=== PATIENT | female | born 1995 | race Hispanic/Latino ===

== ENCOUNTER → 2017-02-05 | Outpatient (CLI) | payer OTHER ==
[~2017-02-05] MED LIST: ACETAMINOPHEN; ALBU17AE3 INH; BCP; Benadryl; CETI10TA17 PO; CYCL5TAB PO; DCCL10CRX PO; EPIN0.3A3; EPIN0.3A3 SQ; FAMO-119 PO; FAMO20TA5; FLONASE; HYDR-700; HYDR-700 PO; METH4TAB PO; MNTL10T PO; MONT10TA21 PO; MONT10TA24; NAPR250T34 PO; NORE1TAB23; NORE1TAB23 PO; PRD20T PO; RT-ALBUINH; SINGULAIR; [UNRECOGNIZED DRUG - OTHER]; [UNRECOGNIZED DRUG - OTHER]
--- NOTE | 2017-02-05 11:27 | Diagnostic Imaging Report ---
PROCEDURE: MRI left joint lower extremity without contrast. TECHNIQUE: Multiplanar, multisequence non contrast-enhanced MRI of the left lower extremity was accomplished. INDICATION: Left knee pain. FINDINGS: There is a small suprapatellar effusion. There is a tiny Lynch's cyst extending about measuring 1.2 x 0.5 x 1 cm in size. The bone marrow demonstrate no significant signal abnormality. The extensor mechanism is intact. The ACL and PCL are both intact. The posterior horn of the medial meniscus demonstrate the increased signal within its substance near its junction with the body of the meniscus without definite extension to the meniscus surface to suggest a tear. The lateral meniscus appears intact. The MCL and lateral collateral ligament complex appear intact. There is a generally preserved articular cartilage seen with no significant thinning or focal defect. The muscles signal and bulk around the knee is within normal limits. IMPRESSION: 1. There is a minimal joint effusion and the tiny Lynch's cyst. 2. Increased signal within the substance of the posterior horn of the medial meniscus could relate to old injury or myxoid degeneration. The abnormal signal does not interrupt the articular surface of the meniscus to suggest a tear. Dictated by: Dictated on workstation # [id number]
== END ==
LOC: RAD 09:24
PROVIDERS: ATTEND Nurse Practitioner
DX: S83.232A Complex tear of medial meniscus, current injury, left knee, initial encounter (principal); X58.XXXA Exposure to other specified factors, initial encounter; Y99.8 Other external cause status
CPT/HCPCS: 73721

== ENCOUNTER 2017-12-13 17:36 | Emergency (ER) | payer SELFPAY ==
[~2017-12-13] VITALS: Ht 162.6 cm; Wt 83.9 kg
--- OUTSIDE RECORDS SUMMARY | 2017-12-13 17:41 | XMS REPORT ---
Author Author LUL JULIAN Organization [facility] Address [address] [place] [address] Care Team Providers Care Shoe Lay Out Planner Name Role Phone LUL JULIAN Unavailable PROBLEMS Type Condition ICD9-CM Code [id number] Code Onset Dates Condition Status SNOMED Code Problem Mild intermittent asthma without complication J45.20 Active 158735891 Problem Exercise-induced asthma J45.990 Active 39808789 Problem Allergic reaction, urticaria L50.0 Active 62768063 Problem Moderate single current episode of major depressive disorder F32.1 Active 75962279 Problem Obesity (BMI 30.0-34.9) E66.9 Active 144293627552035 Problem Encounter for prescription of oral contraceptives Z30.011 Active 686956901 Problem Routine health maintenance Z00.00 Active 605863658 Problem High risk sexual behavior Z72.51 Active 123987110 Problem Encounter for gynecological examination Z01.419 Active 238168015 ALLERGIES Substance Reaction Event Type Date Status Levsin lethargic Drug Allergy Jul, Active pollen, enviromental allergies sinus congestion Non Drug Allergy Jul, Active SOCIAL HISTORY Never Assessed PLAN OF CARE Activity Details Follow Up 3 Months, prn Reason: VITAL SIGNS Height 63 in 2016-07-31 Weight 182 lbs 2016-07-31 Temperature 98.3 degrees Fahrenheit 2016-07-31 Heart Rate 80 bpm 2016-07-31 Respiratory Rate 20 2016-07-31 BMI 32.24 kg/m2 2016-07-31 Blood pressure systolic 124 mmHg 2016-07-31 Blood pressure diastolic 80 mmHg 2016-07-31 MEDICATIONS Medication Instructions Dosage Frequency Start Date End Date Duration Status Loestrin 07/18 (21) 1-20 MG-MCG Orally Once a day 1 tablet 24h 28 days Active EPINEPHrine 0.3 MG/0.3ML Injection one time Inject into thigh if needed for facial edema or SHORTNESS of BREATH- then go to ER Jan, Active Azithromycin 250 MG Orally Once a day 2 tablets on the first day, then 1 tablet daily for 4 days 24h Jul, Jul, 5 day(s) Active Singulair 10 mg Orally Once a day 1 tablet in the evening 24h 90 days Active Pepcid 20 mg Orally 2 times a day 1 tablet 12h Active Duloxetine HCl 60 mg Orally Once a day 1 capsule 24h Jul, 30 day(s) Active Zyrtec Allergy 10 mg Orally 2 times a day 2 tablets in the am and two tablets in the evening 12h Mar, 90 days Active HydrOXYzine HCl 25 MG Orally every 8 hrs 1 tablet as needed 8h Jan, Active Benadryl 25 MG Active ProAir HFA 90 mcg/actuation Inhalation every 4 hrs 2-4 Inhalations by Inhalation route every 4 hours PRN 4h Apr, 365 days Active RESULTS No Results PROCEDURES No Known procedures IMMUNIZATIONS No Known Immunizations MEDICAL (GENERAL) HISTORY Type Description Date Medical History depression Surgical History left knee scope Surgical History tonsils and adenoid Surgical History tube ears Surgical History wisdom teeth removal
--- OUTSIDE RECORDS SUMMARY | 2017-12-13 17:42 | XMS REPORT ---
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 Active 62737392 Problem Encounter for prescription of oral contraceptives Z30.011 Active 884468351 Problem Exercise-induced asthma J45.990 Active 88868762 Problem Allergic reaction, urticaria L50.0 Active 09880344 Problem Encounter for gynecological examination Z01.419 Active 137854191 Problem High risk sexual behavior Z72.51 Active 582526603 ALLERGIES Substance Reaction Event Type Date Status pollen, enviromental allergies sinus congestion Non Drug Allergy Apr, Active SOCIAL HISTORY No smoking Hx information available PLAN OF CARE VITAL SIGNS Height 63 in 2016-05-20 Weight 182.6 lbs 2016-05-20 Heart Rate 72 bpm 2016-05-20 Respiratory Rate 18 2016-05-20 BMI 32.34 kg/m2 2016-05-20 Blood pressure systolic 124 mmHg 2016-05-20 Blood pressure diastolic 76 mmHg 2016-05-20 MEDICATIONS Medication Instructions Dosage Frequency Start Date End Date Duration Status Singulair 10 mg Orally Once a day 1 tablet in the evening 24h Jan, Active Loestrin 1/20 (21) 1-20 MG-MCG Orally Once a day 1 tablet 24h 28 days Active ProAir HFA 90 mcg/actuation Inhalation every 4 hrs 2-4 Inhalations by Inhalation route every 4 hours PRN 4h 15 Apr, 2013 Active Benadryl 25 MG Active HydrOXYzine HCl 25 MG Orally every 8 hrs 1 tablet as needed 8h Jan, Active Pepcid 20 mg Orally 2 times a day 1 tablet 12h Active Prednisone Active Zyrtec Allergy 10 mg Orally 2 times a day 1 tablet 12h Active EPINEPHrine 0.3 MG/0.3ML Injection one time Inject into thigh if needed for facial edema or SHORTNESS of BREATH- then go to ER Jan, Active RESULTS No Results PROCEDURES Procedure Date Ordered Related Diagnosis Body Site Office Visit, Est Pt., Level 3 May 20, 2016 IMMUNIZATIONS No Known Immunizations
--- OUTSIDE RECORDS SUMMARY | 2017-12-13 17:42 | XMS REPORT ---
Author Author LUL JULIAN e[employer] Address Unknown Phone Unavailable Care Team Providers Care Occupational Health Physiotherapist Name Role Phone LUL JULIAN CP Unavailable Allergies, Adverse Reactions, Alerts Substance Reaction Event Type pollen, enviromental allergies sinus congestion Non Drug Allergy Problems Problem Type Condition Code Onset Dates Condition Status Assessment Family history of diabetes mellitus (DM) Z83.3 Active Assessment History of endometriosis Z87.42 Active Problem Allergic reaction, urticaria L50.0 Active Problem Routine health maintenance Z00.00 Active Problem Exercise-induced asthma J45.990 Active Assessment Exercise-induced asthma J45.990 Active Assessment Routine health maintenance Z00.00 Active Problem Mild intermittent asthma without complication J45.20 Active Assessment Allergic reaction, urticaria L50.0 Active Medications Medication Code System Code Instructions Start Date End Date Status Dosage ProAir HFA [facility] [address]-67 90 mcg/actuation Inhalation every 4 hrs Apr 2-4 Inhalations by Inhalation route every 4 hours PRN Ibuprofen [facility] [address]-43 200 MG Orally every 6 hrs 1 tablet as needed Cetirizine HCl [facility] [address]-48 10 mg Orally Once a day Jan 29, 2016 1 tablet Benadryl Allergy [facility] [address]-03 25 MG Orally every 6 hrs 1 tablet as needed Singulair [facility] [address]-67 10 mg Orally Once a day Jan 29, 2016 1 tablet in the evening HydrOXYzine HCl [facility] [address]-64 25 MG Orally every 8 hrs Jan 29, 2016 1 tablet as needed EPINEPHrine [facility] [address]-44 0.3 MG/0.3ML Injection one time Jan 29, 2016 Inject into thigh if needed for facial edema or SHORTNESS of BREATH- then go to ER Procedures Procedure Coding System Code Date Office Visit, Est Pt., Level 3 CPT-4 51869 Jan 29, 2016 Vital Signs Date/Time: Jan 29, 2016 Cardiac Monitoring Heart Rate 86 bpm Weight 172.2 lbs Height 63 in Wt Percentile 92.36 % BMI 30.50 Index Blood Pressure Diastolic 70 mmHg Blood Pressure Systolic 118 mmHg BMIPercentile 93.85 % Results No Known Results Summary Purpose eClinicalWorks Submission
--- OUTSIDE RECORDS SUMMARY | 2017-12-13 17:42 | XMS REPORT ---
Author Author LUL JULIAN Organization [facility] Address [address] [place] [address] Care Team Providers Care Flight Test Mechanic Name Role Phone JULIANLUL Andino Unavailable PROBLEMS Type Condition ICD9-CM Code [id number] Code Onset Dates Condition Status SNOMED Code Problem Intractable migraine without aura and with status migrainosus G43.011 Active 470094318 Problem Moderate single current episode of major depressive disorder F32.1 Active 69061720 Problem Mild intermittent asthma without complication J45.20 Active 283337667 Problem Obesity (BMI 30.0-34.9) E66.9 Active 365366142426065 Problem Allergic reaction, urticaria L50.0 Active 85482833 ALLERGIES No Information ENCOUNTERS Encounter Location Date Diagnosis [facility] [id number] [place] [address] 79212- 0172 Sep, Mild intermittent asthma without complication J45.20 ; Allergic reaction, urticaria L50.0 ; Obesity (BMI 30.0-34.9) E66.9 ; Moderate single current episode of major depressive disorder F32.1 ; Intractable migraine without aura and with status migrainosus G43.011 and Oral contraceptive pill surveillance Z30.41 [facility] [id number] [place] [address]17 -0293 Aug, Toe pain, left M79.675 ; Left anterior knee pain M25.562 and Closed nondisplaced fracture of distal phalanx of left great toe, initial encounter S92.425A [facility] [id number] [place] [address] 96416- 3758 Aug, Rash and nonspecific skin eruption R21 [facility] [id number] [place] [address] 85178- 3868 Jun, Complex tear of medial meniscus of left knee as current injury, initial encounter S83.232A [facility] [id number] [place] [address] 51474- 7208 May, Moderate single current episode of major depressive disorder F32.1 ; Oral contraceptive pill surveillance Z30.41 and Obesity (BMI 30.0-34.9) E66.9 [facility] [id number] [place] [address] 90111- 0195 May, Encounter for prescription of oral contraceptives Z30.011 [place] [id number] [place] [address] 32558- 1621 May, [facility] [address] [address]2380 Apr, Intractable migraine without aura and with status migrainosus G43.011 [place] [id number] [place] [address] 04058- 3305 Apr, [place] [id number] [place] [address] 13125- 6768 Mar, [place] [id number] [place] [address] 16629- 9345 Mar, Encounter for well woman exam with routine gynecological exam Z01.419 ; Moderate single current episode of major depressive disorder F32.1 ; Screening breast examination Z12.31 ; Screen for STD (sexually transmitted disease) Z11.3 ; Vaginal candidiasis B37.3 and Dietary counseling Z71.3 [place] [id number] [place] [address] 95724- 3203 Feb, [place] [id number] [place] [address] 12405- 5685 Jan, [place] [address] 95119- 4496 Jan, [place] [id number] [place] [address] 30674- 4355 Jan, Complex tear of medial meniscus of left knee as current injury, initial encounter S83.232A [facility] [id number] [place] [address] 69173- 2271 Nov, Acute pain of left knee M25.562 [facility] [id number] [place] [address] 94519 -7845 Sep, Sprain of left ankle, unspecified ligament, initial encounter S93.402A [facility] [address] 31684- 9740 Aug, [facility] [address] 92225- 0244 Aug, [place] [address] 43523- 0292 Jul, Moderate single current episode of major depressive disorder F32.1 and Acute non-recurrent maxillary sinusitis J01.00 [place] [address] 66278- 3055 Jun, Mild intermittent asthma without complication J45.20 ; Allergic reaction, urticaria L50.0 ; Acute non-recurrent frontal sinusitis J01.10 and Obesity (BMI 30.0-34.9) E66.9 [place] [address] 87387- 7140 Apr, Allergic reaction, urticaria L50.0 [facility] [address] 17467- 3001 Apr, [place] [address] 74715- 0008 Mar, Angioedema, subsequent encounter T78.3XXD [place] [address] 64134- 3473 05 Mar, 2016 [place] [address] 96568- 6718 16 Feb, 2016 Spongiotic dermatitis L30.8 [place] [address] [place] [address]- 1638 Jan, Recurrent urticaria L50.8 [place] [id number] [place] [address] 76956- 9090 Jan, [place] [id number] [place] [address] 89573- 1535 Jan, Allergic reaction, urticaria L50.0 ; Routine health maintenance Z00.00 ; Encounter for prescription of oral contraceptives Z30.011 ; Encounter for gynecological examination Z01.419 and High risk sexual behavior Z72.51 [place] [id number] [place] [address] 92945- 6217 03 Jan, 2016 Allergic reaction, urticaria L50.0 ; Routine health maintenance Z00.00 ; Family history of diabetes mellitus (DM) Z83.3 and History of endometriosis Z87.42 [place] [id number] [place] [address] 52297- 0172 Jan, Allergic reaction, urticaria L50.0 ; Exercise-induced asthma J45.990 ; Routine health maintenance Z00.00 ; Family history of diabetes mellitus (DM) Z83.3 and History of endometriosis Z87.42 [place] [id number] [place] [address] 27730- 8173 Nov, Drug screening, pre-employment Z02.1 and Pre-employment drug screening Z02.1 [place] [id number] [place] [address] 19611- 8662 Nov, Pre-employment drug screening Z02.1 [place] [id number] [place] [address] 65782- 0323 Nov, [address] 70390- 8699 October, Pre-employment examination Z02.1 and Visit for TB skin test Z11.1 [place] [id number] [place] [address] 41607- 5315 Jul, Sore throat J02.9 [facility] [id number] [place] [address] 64568- 9156 Feb, Counseling for control, oral contraceptives V25.01 [facility] [address] 63511- 2018 Jan, Encounter for long-term (current) use of other medications V58.69 and 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 [facility] [address] 16018- 7484 Jan, Mastodynia 611.71 [place] [address] 23825- 1409 Jan, [facility] [address] 82355- 6912 Dec, Frequent headaches 784.0 [place] [address] 01881- 1812 Dec, Frequent headaches 784.0 and Family history of diabetes mellitus V18.0 [facility] [id number] [place] [address] 01341- 5393 Sep, [facility] [id number] [place] [address] 45643- 3490 Sep, [facility] [id number] [place] [address] 78701- 6285 Jul, [facility] [id number] [place] [address] 52561- 0374 Jul, [facility] [id number] [place] [address] 95526- 9181 Jun, [facility] [address] 73053- 4774 Jun, [facility] [id number] [place] [address] 68841- 5596 Jun, [facility] [address] [place] [address]- 9529 Jun, [facility] [place] [facility] [address] [id number] [place] [address]- 2049 Apr, [facility] [place] [facility] [address] [id number] [place] [address]- 5295 Apr, [facility] [place] [facility] [address] [id number] [place] [address]- 0639 Mar, [facility] [place] [facility] [address] [id number] [place] [address]- 8653 14 Mar, 2014 [facility] [place] [facility] [address] [id number] [place] [address]- 2217 Mar, [facility] [place] [facility] [address] [id number] [place] [address]- 3928 Mar, [facility] [place] [facility] [address] [id number] [place] [address]- 3665 Feb, [facility] [place] [facility] [address] [id number] [place] [address]- 0931 Feb, [facility] [place] [facility] [address] [id number] [place] [address]- 8306 Dec, [facility] [place] [facility] [address] [id number] [place] [address]- 4478 Dec, [facility] [place] [facility] [address] [id number] [place] [address]- 1242 Dec, [facility] [place] [facility] [address] [id number] [place] [address]- 4631 Dec, [facility] [place] [facility] [address] [id number] [place] [address]- 4440 Dec, [facility] [place] [facility] [address] [id number] [place] [address]- 6531 Dec, [facility] [place] [facility] [address] [id number] [place] [address]- 6244 Dec, [facility] [place] [facility] [address] [id number] [place] [address]- 5870 Dec, [facility] [place] [facility] [address] [id number] [place] [address]- 9898 Dec, [facility] [place] [facility] [address] [id number] [place] [address]- 1638 Dec, [facility] [place] [facility] [address] [id number] [place] [address]- 0256 Dec, [facility] [place] [facility] [address] [id number] [place] [address]- 8499 Dec, [facility] [place] [facility] [address] [id number] [place] [address]- 6101 Nov, [facility] [place] [facility] [address] [id number] [place] [address]- 3422 Nov, [facility] [place] [facility] [address] [id number] [place] [address]- 4848 Nov, [facility] [place] [facility] [address] [id number] [place] [address]- 3366 Nov, [facility] [place] [facility] [address] [id number] [place] [address]- 1560 October, [facility] [place] [facility] [address] [id number] [place] [address]- 4057 October, [facility] [place] [facility] [address] [id number] [place] [address]- 3219 October, [facility] [place] [facility] [address] [id number] [place] [address]- 2017 October, [facility] [place] [facility] [address] [id number] [place] [address]- 4859 October, [facility] [place] [facility] [address] [id number] [place] [address]- 8582 October, [facility] [place] [facility] [address] [id number] [place] [address]- 8325 Sep, [facility] [place] [facility] [address] [id number] [place] [address]- 9423 Sep, [facility] [place] [facility] [address] [id number] [place] [address]- 1537 Sep, [facility] [place] [facility] [address] [facility] [id number] [place] [address]- 8056 Sep, [facility] [place] [facility] [address] [id number] [place] [address]- 5181 Sep, [facility] [place] [facility] [address] [id number] [place] [address]- 1161 Sep, [facility] [place] [facility] [address] [facility] [id number] [place] [address]- 7507 Sep, [facility] [place] [facility] [address] [facility] [id number] [place] [address]- 8927 Sep, [facility] [place] [facility] [address] [id number] [place] [address]- 1314 Aug, [facility] [place] [facility] [address] [id number] [place] [address]- 7999 Aug, [facility] [place] [facility] [address] [facility] [id number] [place] [address]- 2395 Aug, [facility] [place] [facility] [address] [id number] [place] [address]- 8739 Aug, [facility] [place] [facility] [address] [id number] [place] [address]- 0605 Jul, [facility] [place] [facility] [address] [id number] [place] [address]- 5588 Jul, [facility] [place] [facility] [address] [id number] [place] [address]- 0081 Jul, [facility] [place] [facility] [address] [id number] [place] [address]- 3970 Jul, [facility] [place] [facility] [address] [id number] [place] [address]- 2403 Jul, [facility] [place] [facility] [address] [id number] [place] [address]- 1856 Jul, [facility] [place] [facility] [address] [id number] [place] [address]- 9540 Jun, [facility] [place] [facility] [address] [id number] [place] [address]- 5527 Jun, [facility] [place] [facility] [address] [id number] [place] [address]- 9722 Jun, [facility] [place] [facility] [address] [id number] [place] [address]- 3960 Jun, [facility] [place] [facility] [address] [id number] [place] [address]- 1876 May, [facility] [place] [facility] [address] [id number] [place] [address]- 7829 May, [facility] [place] [facility] [address] [id number] [place] [address]- 8524 May, [facility] [place] [facility] [address] [id number] [place] [address]- 5412 May, [facility] [place] [facility] [address] [id number] [place] [address]- 3552 Apr, [facility] [place] [facility] [address] [id number] [place] [address]- 4836 Apr, [facility] [place] [facility] [address] [id number] [place] [address]- 7874 Apr, [facility] [place] [facility] [address] [id number] [place] [address] 2546 Apr, [facility] [place] [facility] [address] [id number] [place] [address]- 8194 Apr, [facility] [place] [facility] [address] [id number] [place] [address]- 2179 Apr, [facility] [place] [facility] [address] [id number] [place] [address]- 2576 Feb, [facility] [place] [facility] [address] [id number] [place] [address]- 6535 Feb, [facility] [place] [facility] [address] [id number] [place] [address]- 7463 Jan, [facility] [place] [facility] [address] [id number] [place] [address]- 8241 Jan, [facility] [place] [facility] [address] [id number] [place] [address]- 3057 Jan, [facility] [place] [facility] [address] [id number] [place] [address]- 8686 Jan, [facility] [place] [facility] [address] [id number] [place] [address]- 8084 Jan, [facility] [place] [facility] [address] [id number] [place] [address]- 4205 Jan, [facility] [place] [facility] [address] [id number] [place] [address]- 6239 Jan, [facility] [place] [facility] [address] [id number] [place] [address]- 5253 October, [facility] [place] [facility] [address] [id number], [place] [address]- 7179 Aug, [facility] [place] [facility] [address] [id number], [place] [address]- 1970 Jun, [facility] [place] [facility] [address] [id number] [place] [address]- 1394 Apr, [facility] [place] [facility] [address] [id number] [place] [address]- 2784 Apr, [facility] [place] [facility] [address] [id number] [place] [address]- 3437 Mar, [facility] [place] [facility] [address] [id number] [place] [address]- 0311 Mar, [facility] [place] [facility] [address] [id number] [place] [address]- 1363 Nov, [facility] [place] [facility] [address] [id number] [place] [address]- 8835 Aug, [facility] [place] [facility] [address] [id number] [place] [address]- 8584 Jun, [facility] [place] [facility] [address] [id number] [place] [address]- 9362 30 Apr, 2011 [facility] [place] [facility] [address] [id number] [place] [address]- 4096 28 Apr, 2011 [facility] [place] [facility] [address] [id number] [place] [address]- 0370 Mar, [facility] [place] [facility] [address] [id number] [place] [address]- 1195 Nov, [facility] [place] [facility] [address] [id number] [place] [address]- 2463 14 Jul, 2010 [facility] [place] [facility] [address] [id number] [place] [address]- 0849 14 May, 2010 [facility] [place] [facility] [address] [facility] [id number] [place] [address]- 6442 14 May, 2010 [facility] [place] [facility] [address] [id number] [place] [address]- 0799 30 Apr, 2010 [facility] [place] [facility] [address] [id number] [place] [address]- 9909 Mar, [facility] [place] [facility] [address] [id number] [place] [address]- 8654 Mar, [facility] [place] [facility] [address] [id number] [place] [address]- 3530 2010 [facility] [place] [facility] [address] [id number] [place] [address]- 6004 2010 [facility] [id number] [address]- 2783 15 Feb, 2010 [facility] [address] [address]- 8332 Dec, [facility] [address] [address]- 4817 17 Nov, 2009 [facility] [address] [address]- 1714 May, [facility] [address] [address]- 3109 May, [facility] [address] [address]- 7380 Apr, [facility] [address] [address]- 9853 Apr, [facility] [address] [address]- 7162 Apr, [facility] [id number] [address]- 8002 Nov, IMMUNIZATIONS No Known Immunizations SOCIAL HISTORY Never Assessed REASON FOR VISIT needs appt PLAN OF CARE VITAL SIGNS MEDICATIONS Unknown Medications RESULTS No Results PROCEDURES No Known procedures INSTRUCTIONS MEDICATIONS ADMINISTERED No Known Medications MEDICAL (GENERAL) HISTORY Type Description Date Medical History depression Medical History migraine Surgical History left knee scope x 2 Surgical History tonsils and adenoid Surgical History tube ears Surgical History wisdom teeth removal
--- OUTSIDE RECORDS SUMMARY | 2017-12-13 17:42 | XMS REPORT ---
Author INES Kohli [facility] eClinicalWorks Address Unknown Phone Unavailable Care Team Providers Care Manager Talent Name Role Phone INES NUNES CP Unavailable Allergies, Adverse Reactions, Alerts Substance Reaction Event Type N.K.D.A. 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 Active Assessment Encounter for long-term (current) use of other medications V58.69 Active Problem Pain in joint, lower leg 719.46 Active Problem Pain in joint, ankle and foot 719.47 Active Problem Bipolar I disorder, most recent episode (or current) depressed, unspecified 296.50 Active Problem Acute pharyngitis 462 Active Problem Anorexia 783.0 Active Problem Insomnia, unspecified 780.52 Active Problem Abnormal involuntary movements 781.0 Active Problem Asthma, unspecified, unspecified status 493.90 Active Problem Other general medical examination for administrative purposes V70.3 Active Problem Unspecified conjunctivitis 372.30 Active Problem Encounter for long-term (current) use of other medications V58.69 Active Problem 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 Active Problem Acute upper respiratory infections of unspecified site 465.9 Active Problem Dizziness and giddiness 780.4 Active Problem Contusion of chest wall 922.1 Active Problem Other malaise and fatigue 780.79 Active Problem Adjustment disorder with depressed mood 309.0 Active Problem Need for prophylactic vaccination and inoculation, Influenza V04.81 Active Problem MENINGOCOCCAL DX V03.89 Active Problem Blepharitis, unspecified 373.00 Active Problem Major depressive disorder, single episode, unspecified 296.20 Active Problem Pain in joint, forearm 719.43 Active Problem Acute sinusitis, unspecified 461.9 Active Problem Lumbago 724.2 Active Problem Headache 784.0 Active Medications Medication Code System Code Instructions Start Date End Date Status Dosage Loestrin 07/18 (21) [facility] [address]-36 1-20 MG-MCG Orally Once a day 1 tablet Cymbalta [facility] [address]-15 60 mg Jul 18, 2014 take 1 capsule (60 mg) by oral route once daily ProAir HFA [facility] [address]-86 90 mcg/actuation May 13, 2013 2-4 Inhalations by Inhalation route every 4 hours PRN Procedures Procedure Coding System Code Date Office Visit, New Pt., Level 4 CPT-4 67704 Feb 22, 2015 Vital Signs Date/Time: Feb 22, 2015 Temperature 98.9 F Weight 143.8 lbs Height 63 in BMI 25.47 Index Blood Pressure Diastolic 68 mmHg Blood Pressure Systolic 110 mmHg Cardiac Monitoring Heart Rate 78 bpm BMIPercentile 82.57 % Wt Percentile 76.49 % Results No Known Results Summary Purpose eClinicalWorks Submission
--- OUTSIDE RECORDS SUMMARY | 2017-12-13 17:43 | XMS REPORT ---
Author Author IESHA LUL Organization [facility] Address [address] [place] [address] Care Team Providers Care Motorized Squad Lieutenant Name Role Phone JULIANLUL Andino Unavailable PROBLEMS Type Condition ICD9-CM Code TYA43-LB Code Onset Dates Condition Status SNOMED Code Problem Intractable migraine without aura and with status migrainosus G43.011 Active 558740537 Problem Moderate single current episode of major depressive disorder F32.1 Active 83968431 Problem Mild intermittent asthma without complication J45.20 Active 662892379 Problem Obesity (BMI 30.0-34.9) E66.9 Active 959007370423876 Problem Allergic reaction, urticaria L50.0 Active 12020651 ALLERGIES Substance Reaction Event Type Date Status Levsin lethargic Drug Allergy Mar, Active pollen, enviromental allergies sinus congestion Non Drug Allergy Mar, Active ENCOUNTERS Encounter Location Date Diagnosis [place] [address] [address] October, [facility] [address] [address] Sep, Mild intermittent asthma without complication J45.20 ; Allergic reaction, urticaria L50.0 ; Obesity (BMI 30.0-34.9) E66.9 ; Moderate single current episode of major depressive disorder F32.1 ; Intractable migraine without aura and with status migrainosus G43.011 and Oral contraceptive pill surveillance Z30.41 [facility] [address] [place] [id number] [place] [address] Aug, Toe pain, left M79.675 ; Left anterior knee pain M25.562 and Closed nondisplaced fracture of distal phalanx of left great toe, initial encounter S92.425A [place] [address] [place] [address] Aug, Rash and nonspecific skin eruption R21 [place] [address] [address] Jun, Complex tear of medial meniscus of left knee as current injury, initial encounter S83.232A [place] [address] [address] May, Moderate single current episode of major depressive disorder F32.1 ; Oral contraceptive pill surveillance Z30.41 and Obesity (BMI 30.0-34.9) E66.9 [place] [address] [address] May, Encounter for prescription of oral contraceptives Z30.011 [place] [address] [address] May, [facility] [address] [address] Apr, Intractable migraine without aura and with status migrainosus G43.011 [place] [address] [address] Apr, [place] [address] [address] Mar, [place] [address] [place] [id number] [place] [address] Mar, Encounter for well woman exam with routine gynecological exam Z01.419 ; Moderate single current episode of major depressive disorder F32.1 ; Screening breast examination Z12.31 ; Screen for STD (sexually transmitted disease) Z11.3 ; Vaginal candidiasis B37.3 and Dietary counseling Z71.3 [place] [address] [address] 06 Feb, 2017 [facility] [address] [address] Jan, [place] [address] [place] [address] Jan, [place] [address] [address] Jan, Complex tear of medial meniscus of left knee as current injury, initial encounter S83.232A [facility] [address] [place] [id number] [place] [address]- 6679 Nov, Acute pain of left knee M25.562 [facility] [address] [place] [id number] [place] [address] Sep, Sprain of left ankle, unspecified ligament, initial encounter S93.402A [place] [address] [address] Aug, [facility] [address] [address] Aug, [place] [address] [address] Jul, Moderate single current episode of major depressive disorder F32.1 and Acute non-recurrent maxillary sinusitis J01.00 [place] [address] [address] Jun, Mild intermittent asthma without complication J45.20 ; Allergic reaction, urticaria L50.0 ; Acute non-recurrent frontal sinusitis J01.10 and Obesity (BMI 30.0-34.9) E66.9 [place] [address] [place] [id number] [place] [address] Apr, Allergic reaction, urticaria L50.0 [place] [address] [address] Apr, [place] [address] [address] Mar, Angioedema, subsequent encounter T78.3XXD [place] [address] [address]- [address] Mar, [place] [id number] [place] [address]- [address] Feb, Spongiotic dermatitis L30.8 [place] [address] [place] [id number] [place] [address]- 2851 Jan, Recurrent urticaria L50.8 [place] [address] [place] [id number] [place] [address]- [address] Jan, [place] [address] [place] [id number] [place] [address]- 39[address] Jan, Allergic reaction, urticaria L50.0 ; Routine health maintenance Z00.00 ; Encounter for prescription of oral contraceptives Z30.011 ; Encounter for gynecological examination Z01.419 and High risk sexual behavior Z72.51 [place] [address] [place] [id number] [place] [address]- 0[address] Jan, Allergic reaction, urticaria L50.0 ; Routine health maintenance Z00.00 ; Family history of diabetes mellitus (DM) Z83.3 and History of endometriosis Z87.42 [place] [address] [place] [id number] [place] [address] 9[address]43- 0[address] Jan, Allergic reaction, urticaria L50.0 ; Exercise-induced asthma J45.990 ; Routine health maintenance Z00.00 ; Family history of diabetes mellitus (DM) Z83.3 and History of endometriosis Z87.42 [place] [address] [place] [id number] [place] [address]- [address] Nov, Drug screening, pre-employment Z02.1 and Pre-employment drug screening Z02.1 [place] [address] [place] [id number] [place] [address] Nov, Pre-employment drug screening Z02.1 [place] [address] [place] [id number] [place] [address]- 387[address] Nov, [place] [address] [place] [id number] [place] [address]- [address] October, Pre-employment examination Z02.1 and Visit for TB skin test Z11.1 [place] [address] [place] [id number] [place] [address]- 4320 Jul, Sore throat J02.9 [place] [address] [place] [id number] [place] [address]- 69[address] Feb, Counseling for control, oral contraceptives V25.01 [place] [address] [address]- [address] Jan, Encounter for long-term (current) use of other medications V58.69 and 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 [place] [address] [address]- [address] Jan, Mastodynia 611.71 [place] [address] [address]- [address] Jan, [place] [address] [address]- 1683 Dec, Frequent headaches 784.0 [place] [address] [address]- 9707 Dec, Frequent headaches 784.0 and Family history of diabetes mellitus V18.0 [place] [address] [place] [id number] [place] [address]- 2664 Sep, [place] [address] [address]- [address] Sep, [place] [address] [address]- [address] Jul, [place] [address] [address]- [address] Jul, [place] [address] [address]- [address] Jun, [place] [address] [place] [address] Jun, [facility] [place] [facility] [address] [id number] [place] [address]- 9682 Jun, [facility] [place] [facility] [address] [id number] [place] [address]- 9407 Jun, [facility] [place] [facility] [address] [id number] [place] [address]- 5889 Apr, [facility] [place] [facility] [address] [id number] [place] [address]- 0798 Apr, [facility] [place] [facility] [address] [id number] [place] [address]- 1649 Mar, [facility] [place] [facility] [address] [id number] [place] [address]- 8581 Mar, [facility] [place] [facility] [address] [id number] [place] [address]- 8602 Mar, [facility] [place] [facility] [address] [id number] [place] [address]- 1357 Mar, [facility] [place] [facility] [address] [id number] [place] [address]- 1470 Feb, [facility] [place] [facility] [address] [id number] [place] [address]- 0590 Feb, [facility] [place] [facility] [address] [id number] [place] [address]- 0354 Dec, [facility] [place] [facility] [address] [id number] [place] [address]- 0309 Dec, 2013 [facility] [place] [facility] [address] [id number] [place] [address]- 6595 Dec, [facility] [place] [facility] [address] [id number] [place] [address]- 3943 Dec, 2013 [facility] [place] [facility] [address] [id number] [place] [address]- 5019 05 Dec, 2013 [facility] [place] [facility] [address] [id number] [place] [address]- 0651 Dec, 2013 [facility] [place] [facility] [address] [id number] [place] [address]- 4418 Dec, [facility] [place] [facility] [address] [id number] [place] [address]- 3039 Dec, [facility] [place] [facility] [address] [id number] [place] [address]- 2886 Dec, [facility] [place] [facility] [address] [id number] [place] [address]- 1700 Dec, [facility] [place] [facility] [address] [id number] [place] [address]- 5130 Dec, [facility] [place] [facility] [address] [id number] [place] [address]- 7823 Dec, [facility] [place] [facility] [address] [id number] [place] [address]- 6683 Nov, [facility] [place] [facility] [address] [id number] [place] [address]- 7075 Nov, [facility] [place] [facility] [address] [id number] [place] [address]- 7796 Nov, [facility] [place] [facility] [address] [id number] [place] [address]- 7861 Nov, [facility] [place] [facility] [address] [id number] [place] [address]- 2972 October, [facility] [place] [facility] [address] [id number] [place] [address]- 4321 October, [facility] [place] [facility] [address] [id number] [place] [address]- 7454 October, [facility] [place] [facility] [address] [id number] [place] [address]- 9697 October, [facility] [place] [facility] [address] [id number] [place] [address]- 5776 October, [facility] [place] [facility] [address] [id number] [place] [address]- 8914 October, [facility] [place] [facility] [address] [id number] [place] [address]- 7047 Sep, [facility] [place] [facility] [address] [id number] [place] [address]- 4506 Sep, [facility] [place] [facility] [address] [id number] [place] [address]- 9935 Sep, [facility] [place] [facility] [address] [id number] [place] [address]- 5306 Sep, [facility] [place] [facility] [address] [id number] [place] [address]- 8058 Sep, [facility] [place] [facility] [address] [id number] [place] [address]- 8394 Sep, [facility] [place] [facility] [address] [id number] [place] [address]- 9391 Sep, [facility] [place] [facility] [address] [id number] [place] [address]- 4034 Sep, [facility] [place] [facility] [address] [id number] [place] [address]- 8057 Aug, [facility] [place] [facility] [address] [id number] [place] [address]- 3727 Aug, [facility] [place] [facility] [address] [id number] [place] [address]- 3783 Aug, [facility] [place] [facility] [address] [id number] [place] [address]- 4736 Aug, [facility] [place] [facility] [address] [id number] [place] [address]- 7572 Jul, [facility] [place] [facility] [address] [id number] [place] [address]- 3085 Jul, [facility] [place] [facility] [address] [id number] [place] [address]- 1790 Jul, [facility] [place] [facility] [address] [id number] [place] [address]- 4796 Jul, [facility] [place] [facility] [address] [id number] [place] [address] 2546 Jul, [facility] [place] [facility] [address] [id number] [place] [address] 2546 Jul, [facility] [place] [facility] [address] [id number] [place] [address] 2549 Jun, [facility] [place] [facility] [address] [id number] [place] [address]- 2275 Jun, [facility] [place] [facility] [address] [id number] [place] [address]- 2061 Jun, [facility] [place] [facility] [address] [id number] [place] [address]- 1712 Jun, [facility] [place] [facility] [address] [id number] [place] [address]- 2409 May, [facility] [place] [facility] [address] [id number] [place] [address]- 4696 May, [facility] [place] [facility] [address] [id number] [place] [address]- 9388 May, [facility] [place] [facility] [address] [id number] [place] [address]- 2545 May, [facility] [place] [facility] [address] [id number] [place] [address] 2540 Apr, [facility] [place] [facility] [address] [id number] [place] [address] 2546 18 Apr, 2013 [facility] [place] [facility] [address] [id number] [place] [address]- 2546 15 Apr, 2013 [facility] [place] [facility] [address] [id number] [place] [address]- 2549 Apr, [facility] [place] [facility] [address] [id number] [place] [address]- 1212 Apr, [facility] [place] [facility] [address] [id number] [place] [address]- 5049 Apr, [facility] [place] [facility] [address] [id number] [place] [address]- 5695 Feb, [facility] [place] [facility] [address] [id number] [place] [address]- 1988 Feb, [facility] [place] [facility] [address] [id number] [place] [address]- 4424 Jan, [facility] [place] [facility] [address] [id number] [place] [address]- 7750 Jan, [facility] [place] [facility] [address] [id number] [place] [address]- 1579 Jan, [facility] [place] [facility] [address] [id number] [place] [address]- 5152 Jan, [facility] [place] [facility] [address] [id number] [place] [address]- 1232 Jan, [facility] [place] [facility] [address] [id number] [place] [address]- 8801 Jan, [facility] [place] [facility] [address] [id number] [place] [address]- 2015 Jan, [facility] [place] [facility] [address] [id number] [address]- 3111 October, [facility] [place] [facility] [address] [id number] [place] [address]- 7789 Aug, [facility] [place] [facility] [address] [id number] [place] [address]- 2626 Jun, [facility] [place] [facility] [address] [id number] [place] [address]- 9587 Apr, [facility] [place] [facility] [address] [id number] [place] [address]- 7190 07 Apr, 2012 [facility] [address] [id number] [place] [address]- 3398 Mar, [facility] [place] [facility] [address] [id number] [place] [address]- 9536 Mar, [facility] [address] [id number] [place] [address]- 7140 Nov, [facility] [place] [facility] [address] [id number] [place] [address]- 0803 Aug, [facility] [place] [facility] [address] [id number] [place] [address]- 7515 Jun, [facility] [place] [facility] [address] [id number] [place] [address]- 8355 Apr, [facility] [place] [facility] [address] [id number] [place] [address]- 2936 Apr, [facility] [place] [facility] [address] [id number] [place] [address]- 2545 Mar, [facility] [place] [facility] [address] [id number] [place] [address]- 5563 Nov, [facility] [address] [facility] [id number] [place] [address]- 2951 14 Jul, 2010 [facility] [place] [facility] [address] [id number] [place] [address]- 7126 14 May, 2010 [facility] [place] [facility] [address] [id number] [place] [address]- 7788 14 May, 2010 [facility] [place] [facility] [address] [id number] [place] [address] 30 Apr, 2010 [facility] [place] [facility] [address] [id number] [place] [address]- 5482 Mar, [facility] [place] [facility] [address] [id number] [place] [address]- 2547 Mar, [facility] [address] [place] [id number] [address]- [address]99 Mar, [facility] [address] [facility] [id number], [place] [address]- [address]46 2010 [facility] [address] [facility] [id number], [place] [address]- 1137 15 Feb, 2010 [facility] [address] [facility] [id number], [place] [address]- 7265 Dec, [facility] [address] [facility] [id number], [place] [address]- 9954 Nov, [facility] [address] [address]- 8350 May, [facility] [address] [address]- 3305 May, [facility] [address], [place] [address]- 0915 Apr, [facility] [address] [address]- 8469 Apr, [facility] [address] [place] [id number], [place] [address]- 1506 Apr, [facility] [address] [id number], [place] [address]- 3928 Nov, IMMUNIZATIONS No Known Immunizations SOCIAL HISTORY Never Assessed REASON FOR VISIT Well Woman Exam/ having some lump on left breast -- jonas pack PLAN OF CARE Activity Details Follow Up 4 Weeks Reason:f/u depression VITAL SIGNS Height 63 in 2017-04-07 Weight 196.0 lbs 2017-04-07 Temperature 98.1 degrees Fahrenheit 2017-04-07 BMI 34.72 kg/m2 2017-04-07 Blood pressure systolic 136 mmHg 2017-04-07 Blood pressure diastolic 76 mmHg 2017-04-07 MEDICATIONS Medication Instructions Dosage Frequency Start Date End Date Duration Status Loestrin 07/18 () 1-20 MG-MCG Orally Once a day 1 tablet 24h 28 days Active Diflucan 150 MG Orally one time 1 tablet Mar, 1 dose Active Citalopram Hydrobromide 20 mg Orally Once a day 1 tablet 24h Mar, 30 day(s) Active Singulair 10 mg Orally Once a day 1 tablet in the evening 24h 90 days Active Acetaminophen 500 MG Orally every 6 hrs 2 capsules as needed 6h Active Pepcid 20 mg Orally 2 times a day 1 tablet 12h Active HydrOXYzine HCl 25 MG Orally every 8 hrs 1 tablet as needed 8h Jan, 30 days Active RESULTS Name Result Date Reference Range TRICHOMONAS (IN HOUSE) 2017-04-07 TRICHOMONAS Negative Control + Lot # [id number] Exp date 16/05/30 PDF Report 2017-04-07 PDF Report1 LCLS BACTERIAL VAGINOSIS (IN HOUSE) 2017-04-07 RESULTS Negative Control + Lot # [id number] Exp date PAP TEST, HPV IF ASCUS 2017-04-07 DIAGNOSIS: Specimen adequacy: Clinician provided ICD10: Performed by: . . Pathologist provided ICD10: Note: . CULTURE, GENITAL 2017-04-07 Genital Culture, Routine Final report Result 1 Yeast isolated. Result 2 GC/CHLAM PROBE (STATE) 2017-04-07 CHLAMYDIA GC PROCEDURES Procedure Date Ordered Result Body Site SPECIMEN HANDLING Apr 07, 2017 No Charge Apr 07, 2017 Bacterial Vaginosis In House Apr 07, 2017 TRICHOMONAS ASSAY W/OPTIC Apr 07, 2017 CULTURE, BACTERIA, OTHER Apr 07, 2017 INSTRUCTIONS MEDICATIONS ADMINISTERED No Known Medications MEDICAL (GENERAL) HISTORY Type Description Date Medical History depression Medical History migraine Surgical History left knee scope x 2 Surgical History tonsils and adenoid Surgical History tube ears Surgical History wisdom teeth removal
--- OUTSIDE RECORDS SUMMARY | 2017-12-13 17:43 | XMS REPORT ---
Author Author LUL JULIAN [facility] [employer] Address Unknown Phone Unavailable Care Team Providers Care Mercerizing Range Feeder Name Role Phone LUL JULIAN CP Unavailable Allergies, Adverse Reactions, Alerts Substance Reaction Event Type pollen, enviromental allergies sinus congestion Non Drug Allergy Problems Problem Type Condition Code Onset Dates Condition Status Assessment Encounter for prescription of oral contraceptives Z30.011 Active Assessment Allergic reaction, urticaria L50.0 Active Assessment Routine health maintenance Z00.00 Active Assessment High risk sexual behavior Z72.51 Active Assessment Encounter for gynecological examination Z01.419 Active Problem Encounter for gynecological examination Z01.419 Active Problem High risk sexual behavior Z72.51 Active Problem Encounter for prescription of oral contraceptives Z30.011 Active Problem Routine health maintenance Z00.00 Active Problem Mild intermittent asthma without complication J45.20 Active Problem Exercise-induced asthma J45.990 Active Problem Allergic reaction, urticaria L50.0 Active Medications Medication Code System Code Instructions Start Date End Date Status Dosage Ibuprofen [facility] [address]-36 200 MG Orally every 6 hrs 1 tablet as needed HydrOXYzine HCl [facility] [address]-15 25 MG Orally every 8 hrs Jan 29, 2016 1 tablet as needed Singulair [facility] [address]-85 10 mg Orally Once a day Jan 29, 2016 1 tablet in the evening Benadryl Allergy [facility] [address]-92 25 MG Orally every 6 hrs 1 tablet as needed EPINEPHrine [facility] [address]-12 0.3 MG/0.3ML Injection one time Jan 29, 2016 Inject into thigh if needed for facial edema or SHORTNESS of BREATH- then go to ER ProAir HFA [facility] [address]-14 90 mcg/actuation Inhalation every 4 hrs Apr 2-4 Inhalations by Inhalation route every 4 hours PRN Cetirizine HCl [facility] [address]-83 10 mg Orally Once a day Jan 29, 2016 1 tablet Famotidine [facility] [address]-37 20 mg Orally Once a day Feb 07, 2016 1 tablet at bedtime Loestrin 07/18 (21) [facility] [address]-51 1-20 MG-MCG Orally Once a day 1 tablet Procedures Procedure Coding System Code Date CULTURE, BACTERIA, OTHER CPT-4 13764 Feb 07, 2016 TRICHOMONAS ASSAY W/OPTIC CPT-4 94429 Feb 07, 2016 No Charge CPT-4 85002 Feb 07, 2016 Office Visit, Est Pt., Level 3 CPT-4 98286 Feb 07, 2016 VEGA VAG, DNA, DIR PROBE CPT-4 29836 Feb 07, 2016 BIOPSY OF SKIN LESION CPT-4 74552 Feb 07, 2016 Vital Signs Date/Time: Feb 07, 2016 Cardiac Monitoring Heart Rate 72 bpm Weight 172.0 lbs Height 63 in Wt Percentile 92.3 % BMI 30.47 Index Blood Pressure Diastolic 70 mmHg Blood Pressure Systolic 116 mmHg BMIPercentile 93.81 % Results No Known Results Summary Purpose eClinicalWorks Submission
--- OUTSIDE RECORDS SUMMARY | 2017-12-13 17:43 | XMS REPORT ---
Author Author LUL JULIAN [facility] e[employer] Address Unknown Phone Unavailable Care Team Providers Care Hander In Name Role Phone LUL JULIAN CP Unavailable Allergies, Adverse Reactions, Alerts Substance Reaction Event Type pollen, enviromental allergies sinus congestion Non Drug Allergy Problems Problem Type Condition Code Onset Dates Condition Status Assessment Angioedema, subsequent encounter T78.3XXD Active Problem Encounter for gynecological examination Z01.419 Active Problem High risk sexual behavior Z72.51 Active Problem Encounter for prescription of oral contraceptives Z30.011 Active Problem Routine health maintenance Z00.00 Active Problem Mild intermittent asthma without complication J45.20 Active Problem Exercise-induced asthma J45.990 Active Problem Allergic reaction, urticaria L50.0 Active Medications Medication Code System Code Instructions Start Date End Date Status Dosage Prednisone NDC 0 not defined EPINEPHrine [facility] [address]-04 0.3 MG/0.3ML Injection one time Jan 29, 2016 Inject into thigh if needed for facial edema or SHORTNESS of BREATH- then go to ER Singulair [facility] [address]-46 10 mg Orally Once a day Jan 29, 2016 1 tablet in the evening Pepcid [facility] [address]-45 20 mg Orally 2 times a day 1 tablet HydrOXYzine HCl [facility] [address]-04 25 MG Orally every 8 hrs Jan 29, 2016 1 tablet as needed Loestrin 1/20 (21) [facility] [address]-13 1-20 MG-MCG Orally Once a day 1 tablet ProAir HFA [facility] [address]-81 90 mcg/actuation Inhalation every 4 hrs Apr 2-4 Inhalations by Inhalation route every 4 hours PRN Zyrtec Allergy [facility] [address]-26 10 mg Orally 2 times a day 1 tablet Procedures Procedure Coding System Code Date Office Visit, Est Pt., Level 3 CPT-4 16779 Apr 17, 2016 Vital Signs Date/Time: Apr 17, 2016 Cardiac Monitoring Heart Rate 72 bpm Weight 176.6 lbs Height 63 in BMI 31.28 Index Blood Pressure Diastolic 72 mmHg Blood Pressure Systolic 124 mmHg Results No Known Results Summary Purpose eClinicalWorks Submission
--- OUTSIDE RECORDS SUMMARY | 2017-12-13 17:43 | XMS REPORT ---
Author Author LUL JULIAN Organization [facility] Address [address] [place] [address] Care Team Providers Care Digital Pre Press Operator Name Role Phone IESHA LUL Unavailable PROBLEMS Type Condition ICD9-CM Code LEN10-FV Code Onset Dates Condition Status SNOMED Code Problem Intractable migraine without aura and with status migrainosus G43.011 Active 073858471 Problem Moderate single current episode of major depressive disorder F32.1 Active 18987659 Problem Mild intermittent asthma without complication J45.20 Active 343605073 Problem Obesity (BMI 30.0-34.9) E66.9 Active 593029796824990 Problem Allergic reaction, urticaria L50.0 Active 15974904 ALLERGIES Substance Reaction Event Type Date Status Levsin lethargic Drug Allergy May, Active pollen, enviromental allergies sinus congestion Non Drug Allergy May, Active ENCOUNTERS Encounter Location Date Diagnosis [facility] [id number] [place] [address] 08864- 6774 Dec, [facility] [id number] [place] [address] 33621- 8961 October, [facility] [id number] [place] [address] 16028- 3488 Sep, Mild intermittent asthma without complication J45.20 ; Allergic reaction, urticaria L50.0 ; Obesity (BMI 30.0-34.9) E66.9 ; Moderate single current episode of major depressive disorder F32.1 ; Intractable migraine without aura and with status migrainosus G43.011 and Oral contraceptive pill surveillance Z30.41 [facility] [address] [place] [address] 09982 -1888 Aug, Toe pain, left M79.675 ; Left anterior knee pain M25.562 and Closed nondisplaced fracture of distal phalanx of left great toe, initial encounter S92.425A [facility] [facility] [id number] [place] [address] 83800- 9785 Aug, Rash and nonspecific skin eruption R21 [facility] [facility] [id number] [place] [address] 80607- 7101 Jun, Complex tear of medial meniscus of left knee as current injury, initial encounter S83.232A [facility] [address] 87468- 0488 May, Moderate single current episode of major depressive disorder F32.1 ; Oral contraceptive pill surveillance Z30.41 and Obesity (BMI 30.0-34.9) E66.9 [facility] [facility] [id number] [place] [address] 68835- 9504 May, Encounter for prescription of oral contraceptives Z30.011 [place] [address] 93445- 7237 May, [facility] [address] 85833 -0250 Apr, Intractable migraine without aura and with status migrainosus G43.011 [facility] [facility] [id number] [place] [address] 70729- 0846 03 Apr, 2017 [place] [id number] [place] [address] 25254- 3867 Mar, [facility] [address] 84657- 4808 Mar, Encounter for well woman exam with routine gynecological exam Z01.419 ; Moderate single current episode of major depressive disorder F32.1 ; Screening breast examination Z12.31 ; Screen for STD (sexually transmitted disease) Z11.3 ; Vaginal candidiasis B37.3 and Dietary counseling Z71.3 [facility] [facility] [id number] [place] [address] 45796- 1392 Feb, [facility] [address] [place] [address]- 1060 Jan, [facility] [id number] [place] [address] 51811- 4941 Jan, [facility] [id number] [place] [address] 53135- 0102 Jan, Complex tear of medial meniscus of left knee as current injury, initial encounter S83.232A [facility] [facility] [id number] [place] [address] 15013- 6150 Nov, Acute pain of left knee M25.562 [facility] [id number] [place] [address] 95181 -0752 Sep, Sprain of left ankle, unspecified ligament, initial encounter S93.402A [facility] [id number] [place] [address] 82323- 1384 Aug, [facility] [facility] [id number] [place] [address] 13289- 5936 Aug, [facility] [facility] [id number] [place] [address] 92186- 8899 Jul, Moderate single current episode of major depressive disorder F32.1 and Acute non-recurrent maxillary sinusitis J01.00 [facility] [address] [place] [address] 52858- 5018 Jun, Mild intermittent asthma without complication J45.20 ; Allergic reaction, urticaria L50.0 ; Acute non-recurrent frontal sinusitis J01.10 and Obesity (BMI 30.0-34.9) E66.9 [facility] [address] [place] [address] 96313- 6576 Apr, Allergic reaction, urticaria L50.0 [facility] [facility] [id number] [place] [address] 33401- 5623 Apr, [facility] [id number] [place] [address] 73178- 0155 Mar, Angioedema, subsequent encounter T78.3XXD [facility] [address] [place] [address] 17560- 1867 Mar, [facility] [facility] [id number] [place] [address] 57590- 7449 Feb, Spongiotic dermatitis L30.8 [place] [id number] [place] [address] 52869- 5101 Jan, Recurrent urticaria L50.8 [facility] [id number] [place] [address] 25840- 7044 Jan, [facility] [facility] [id number] [place] [address] 75943- 2962 Jan, Allergic reaction, urticaria L50.0 ; Routine health maintenance Z00.00 ; Encounter for prescription of oral contraceptives Z30.011 ; Encounter for gynecological examination Z01.419 and High risk sexual behavior Z72.51 [address] [id number] [place] [address] 20873- 3814 Jan, Allergic reaction, urticaria L50.0 ; Routine health maintenance Z00.00 ; Family history of diabetes mellitus (DM) Z83.3 and History of endometriosis Z87.[address] [place] [address] 70056- 8035 Jan, Allergic reaction, urticaria L50.0 ; Exercise-induced asthma J45.990 ; Routine health maintenance Z00.00 ; Family history of diabetes mellitus (DM) Z83.3 and History of endometriosis Z87.42 [place] [address] [place] [address] 47905- 1656 Nov, Drug screening, pre-employment Z02.1 and Pre-employment drug screening Z02.1 [facility] [facility] [id number] [place] [address] 73756- 7790 Nov, Pre-employment drug screening Z02.1 [place] [id number] [place] [address] 44670- 0622 Nov, [facility] [address] [place] [address] 29778- 1204 October, Pre-employment examination Z02.1 and Visit for TB skin test Z11.1 [facility] [facility] [id number] [place] [address] 21557- 5426 Jul, Sore throat J02.9 [place] [address] 31162- 6519 Feb, Counseling for control, oral contraceptives V25.01 [facility] [id number] [place] [address] 48351- 7899 Jan, Encounter for long-term (current) use of other medications V58.69 and 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 [place] [id number] [place] [address] 17465- 0417 Jan, Mastodynia 611.71 [place] [id number] [place] [address] 52002- 4451 Jan, [place] [address] 68441- 5982 Dec, Frequent headaches 784.0 [place] [id number] [place] [address] 94659- 9790 Dec, Frequent headaches 784.0 and Family history of diabetes mellitus V18.0 [facility] [id number] [place] [address] 26411- 7022 Sep, [place] [id number] [place] [address] 14682- 1672 Sep, [place] [address] 01466- 4430 Jul, [place] [id number] [place] [address] 35494- 0482 Jul, [place] [address] [place] [address]- 4603 Jun, [facility] [place] [facility] [address] [id number] [place] [address]- 7628 Jun, [facility] [place] [facility] [address] [id number] [place] [address]- 5876 Jun, [facility] [place] [facility] [address] [id number] [place] [address]- 4742 Jun, [facility] [place] [facility] [address] [id number] [place] [address]- 0667 Apr, [facility] [place] [facility] [address] [id number] [place] [address]- 7278 Apr, [facility] [place] [facility] [address] [id number] [place] [address]- 8064 Mar, [facility] [place] [facility] [address] [id number] [place] [address]- 1671 Mar, [facility] [place] [facility] [address] [id number] [place] [address]- 6997 Mar, [facility] [place] [facility] [address] [id number] [place] [address]- 0221 Mar, [facility] [place] [facility] [address] [id number] [place] [address]- 9058 Feb, [facility] [place] [facility] [address] [id number] [place] [address]- 3279 Feb, 2013 [facility] [place] [facility] [address] [id number] [place] [address]- 1712 Dec, [facility] [place] [facility] [address] [id number] [place] [address]- 8636 Dec, [facility] [place] [facility] [address] [id number] [place] [address]- 3137 Dec, 2013 [facility] [place] [facility] [address] [id number] [place] [address]- 5740 Dec, 2013 [facility] [place] [facility] [address] [id number] [place] [address]- 5719 Dec, 2013 [facility] [place] [facility] [address] [id number] [place] [address]- 5161 Dec, 2013 [facility] [place] [facility] [address] [id number] [place] [address]285 Dec, [facility] [place] [facility] [address] [id number] [place] [address]- 7926 Dec, [facility] [place] [facility] [address] [id number] [place] [address]- 4511 Dec, [facility] [place] [facility] [address] [id number] [place] [address]- 6731 Dec, [facility] [place] [facility] [address] [id number] [place] [address]- 7701 Dec, [facility] [place] [facility] [address] [id number] [place] [address]- 5340 Dec, [facility] [place] [facility] [address] [id number] [place] [address]- 0855 Nov, [facility] [place] [facility] [address] [id number] [place] [address]- 2137 Nov, [facility] [place] [facility] [address] [id number] [place] [address]- 0247 Nov, [facility] [place] [facility] [address] [id number] [place] [address]- 0588 Nov, [facility] [place] [facility] [address] [id number] [place] [address]- 2014 October, [facility] [place] [facility] [address] [id number] [place] [address]- 7479 October, [facility] [place] [facility] [address] [id number] [place] [address]- 6128 October, [facility] [place] [facility] [address] [id number] [place] [address]- 2546 October, [facility] [place] [facility] [address] [id number] [place]- 6600 October, [facility] [place] [facility] [address] [id number] [place] [address]- 3197 October, [facility] [place] [facility] [address] [id number] [place] [address]- 3145 Sep, [facility] [place] [facility] [address] [id number] [place] [address]- 9590 Sep, [facility] [place] [facility] [address] [id number] [place] [address]- 8706 Sep, [facility] [place] [facility] [address] [id number] [place] [address]- 6987 Sep, [facility] [place] [facility] [address] [id number] [place] [address]- 4075 Sep, [facility] [place] [facility] [address] [id number] [place] [address]- 2103 Sep, [facility] [place] [facility] [address] [id number] [place] [address]- 9248 Sep, [facility] [place] [facility] [address] [id number] [place] [address]- 0848 Sep, [facility] [place] [facility] [address] [id number] [place] [address]- 4961 Aug, [facility] [place] [facility] [address] [id number] [place] [address]- 9137 Aug, [facility] [place] [facility] [address] [id number] [place] [address]- 9544 Aug, [facility] [place] [facility] [address] [id number] [place] [address]- 5073 Aug, [facility] [place] [facility] [address] [id number] [place] [address]- 7734 Jul, [facility] [place] [facility] [address] [id number] [place] [address]- 3588 Jul, [facility] [place] [facility] [address] [id number] [place] [address]- 8756 Jul, [facility] [place] [facility] [address] [id number] [place] [address]- 5186 Jul, [facility] [place] [facility] [address] [id number] [place] [address]- 4206 Jul, [facility] [place] [facility] [address] [id number] [place] [address]- 9092 Jul, [facility] [place] [facility] [address] [id number] [place] [address]- 5564 Jun, [facility] [place] [facility] [address] [id number] [place] [address]- 4113 Jun, [facility] [place] [facility] [address] [id number] [place] [address]- 7819 Jun, [facility] [place] [facility] [address] [id number] [place] [address]- 0992 Jun, [facility] [place] [facility] [address] [id number] [place] [address]- 6347 May, [facility] [place] [facility] [address] [id number] [place] [address]- 2628 May, [facility] [place] [facility] [address] [id number] [place] [address]- 5674 May, [facility] [place] [facility] [address] [id number] [place] [address]- 3250 May, [facility] [place] [facility] [address] [id number] [place] [address]- 9189 Apr, [facility] [place] [facility] [address] [id number] [place] [address]- 6330 Apr, [facility] [place] [facility] [address] [id number] [place] [address]- 4406 Apr, [facility] [place] [facility] [address] [id number] [place] [address]- 5737 Apr, [facility] [place] [facility] [address] [id number] [place] [address]- 9696 Apr, [facility] [place] [facility] [address] [id number] [place] [address]- 7070 Apr, [facility] [place] [facility] [address] [id number] [place] [address]- 4415 Feb, [facility] [place] [facility] [address] [id number] [place] [address]- 3289 Feb, [facility] [place] [facility] [address] [id number] [place] [address]- 8246 Jan, [facility] [place] [facility] [address] [id number] [place] [address]- 7939 Jan, [facility] [place] [facility] [address] [id number] [place] [address]- 5287 Jan, [facility] [place] [facility] [address] [id number] [place] [address]- 2939 Jan, [facility] [place] [facility] [address] [id number] [place] [address]- 5589 Jan, [facility] [place] [facility] [address] [id number] [place] [address]- 1041 Jan, [facility] [place] [facility] [address] [id number], [place] [address]- 6534 Jan, [facility] [place] [facility] [address] [id number] [place] [address]- 4063 October, [facility] [place] [facility] [address] [id number] [place] [address]- 5393 Aug, [facility] [place] [facility] [address] [id number] [place] [address]- 7053 Jun, [facility] [place] [facility] [address] [id number] [place] [address]- 2133 07 Apr, 2012 [facility] [address] [id number] [place] [address]- 7400 Apr, [facility] [place] [facility] [address] [id number] [place] [address]- 8094 Mar, [facility] [place] [facility] [address] [id number] [place] [address]- 0142 Mar, [facility] [place] [facility] [address] [id number] [place] [address]- 0278 Nov, [facility] [place] [facility] [address] [id number] [place] [address]- 7882 Aug, [facility] [place] [facility] [address] [id number] [place] [address]- 3246 Jun, [facility] [address] [id number] [place] [address]- 5433 30 Apr, 2011 [facility] [address] [id number] [place] [address]- 9501 28 Apr, 2011 [facility] [place] [facility] [address] [id number] [place] [address]- 4680 10 Mar, 2011 [facility] [address] [facility] [id number] [place] [address]- 5588 13 Nov, 2010 [facility] [place] [facility] [address] [id number] [place] [address]- 7817 14 Jul, 2010 [facility] [place] [facility] [address] [id number] [place] [address]- 1569 14 May, 2010 [facility] [place] [facility] [address] [id number] [place] [address]- 7436 14 May, 2010 [facility] [place] [facility] [address] [id number] [place] [address]- 3312 30 Apr, 2010 [facility] [place] [facility] [address] [id number] [place] [address]- 4702 Mar, [facility] [address] [id number] [address]- 7719 Mar, [facility] [address] 4852 Mar, [facility] [address] [id number], [place] [address]- 1878 Mar, [facility] [address] [place] [address]- 1276 15 Feb, 2010 [facility] [address] 0308 Dec, [facility] [address] 7572 Nov, [facility] [address] [place] [address]- 2721 May, [facility] [address] [place] [address]- 3324 May, [facility] [address] [address]- 0604 Apr, [facility] [address] 9762 Apr, [facility] [address] [id number], [place] [address]- 4633 Apr, [facility] [address] [id number], [place] [address]- 4530 Nov, IMMUNIZATIONS No Known Immunizations SOCIAL HISTORY Never Assessed REASON FOR VISIT ANXIETY F/U: states is doing well on new medication, states is not feeling as lethargic as was on Cymbalta and is more connected mentally mike lopez, Would like refill on loestrin PLAN OF CARE Activity Details Follow Up 3 Months Reason: VITAL SIGNS Height 63 in 2017-06-09 Weight 187 lbs 2017-06-09 Temperature 98 degrees Fahrenheit 2017-06-09 Heart Rate 72 bpm 2017-06-09 Respiratory Rate 20 2017-06-09 BMI 33.12 kg/m2 2017-06-09 Blood pressure systolic 108 mmHg 2017-06-09 Blood pressure diastolic 60 mmHg 2017-06-09 MEDICATIONS Medication Instructions Dosage Frequency Start Date End Date Duration Status Diflucan 150 MG Orally one time 1 tablet Mar, 1 dose Not- Taking Hchilmjuby-DPEE-Ljyhevdv 50-325-40 MG Orally every 4 hrs 1 tablet as needed 4h 08 Apr, 2017 Active ProAir HFA 90 mcg/actuation Inhalation every 4 hrs 2-4 Inhalations by Inhalation route every 4 hours PRN 4h 15 Apr, 2013 365 days Active Pepcid 20 mg Orally 2 times a day 1 tablet 12h Not-Taking EPINEPHrine 0.3 MG/0.3ML Injection one time Inject into thigh if needed for facial edema or SHORTNESS of BREATH- then go to ER Jan, Active HydrOXYzine HCl 25 MG Orally every 8 hrs 1 tablet as needed 8h Jan, 30 days Active Citalopram Hydrobromide 20 mg Orally Once a day 1 tablet 24h Mar, 30 day(s) Active Loestrin 1/20 (21) 1-20 MG-MCG Orally Once a day 1 tablet 24h 28 days Active Benadryl 25 MG Active Acetaminophen 500 MG Orally every 6 hrs 2 capsules as needed 6h Active Singulair 10 mg Orally Once a day 1 tablet in the evening 24h 90 days Active RESULTS Name Result Date Reference Range TEST, URINE (IN HOUSE) 2017-06-09 RESULTS negative Lot # [id number] Control + Exp date 09/26/2018 PROCEDURES Procedure Date Ordered Result Body Site URINE TEST Jun 09, 2017 INSTRUCTIONS MEDICATIONS ADMINISTERED No Known Medications MEDICAL (GENERAL) HISTORY Type Description Date Medical History depression Medical History migraine Surgical History left knee scope x 2 Surgical History tonsils and adenoid Surgical History tube ears Surgical History wisdom teeth removal
--- OUTSIDE RECORDS SUMMARY | 2017-12-13 17:44 | XMS REPORT ---
Author Author LUL JULIAN Organization [facility] Address [address] [place] [address] Care Team Providers Care Hydrodynamics Teacher Name Role Phone IESHAGURINDERLUL Unavailable PROBLEMS Type Condition ICD9-CM Code [id number] Code Onset Dates Condition Status SNOMED Code Problem Intractable migraine without aura and with status migrainosus G43.011 Active 765230187 Problem Moderate single current episode of major depressive disorder F32.1 Active 90916749 Problem Mild intermittent asthma without complication J45.20 Active 285683101 Problem Obesity (BMI 30.0-34.9) E66.9 Active [id number] Problem Allergic reaction, urticaria L50.0 Active 87621487 ALLERGIES No Information ENCOUNTERS Encounter Location Date Diagnosis [facility] [id number] [place] [address]94- 1022 Dec, [facility] [address] [address] October, [facility] [address] [address]- [address] Sep, Mild intermittent asthma without complication J45.20 ; Allergic reaction, urticaria L50.0 ; Obesity (BMI 30.0-34.9) E66.9 ; Moderate single current episode of major depressive disorder F32.1 ; Intractable migraine without aura and with status migrainosus G43.011 and Oral contraceptive pill surveillance Z30.41 [facility] [id number] [place] [address] -[address]38 Aug, Toe pain, left M79.675 ; Left anterior knee pain M25.562 and Closed nondisplaced fracture of distal phalanx of left great toe, initial encounter S92.425A [place] [address] [place] [address] Aug, Rash and nonspecific skin eruption R21 [place] [address] 78[address]- 8240 Jun, Complex tear of medial meniscus of left knee as current injury, initial encounter S83.232A [place] [address] 62393- 9846 May, Moderate single current episode of major depressive disorder F32.1 ; Oral contraceptive pill surveillance Z30.41 and Obesity (BMI 30.0-34.9) E66.9 [place] [address] [address]68- 2946 May, Encounter for prescription of oral contraceptives Z30.011 [place] [address] [address]- 6038 May, [facility] [address] [address] Apr, Intractable migraine without aura and with status migrainosus G43.011 [place] [address] 51224- 1644 Apr, [place] [id number] [place] [address] 55780- 6106 Mar, [place] [id number] [place] [address] 38263- 2497 Mar, Encounter for well woman exam with routine gynecological exam Z01.419 ; Moderate single current episode of major depressive disorder F32.1 ; Screening breast examination Z12.31 ; Screen for STD (sexually transmitted disease) Z11.3 ; Vaginal candidiasis B37.3 and Dietary counseling Z71.3 [place] [address] 02194- 2488 06 Feb, 2017 [facility] [address] 16[address]- 4732 Jan, [place] [address] [place] [address] 45[address] Jan, [facility] [id number] [place] [address] 28914- 6395 Jan, Complex tear of medial meniscus of left knee as current injury, initial encounter S83.232A [facility] [address] 29340- 9360 Nov, Acute pain of left knee M25.562 [facility] [id number] [place] [address] 04032 -0787 Sep, Sprain of left ankle, unspecified ligament, initial encounter S93.402A [place] [address] 99451- 4238 Aug, [place] [address] 13573- 3927 Aug, [place] [address] 17180- 3833 Jul, Moderate single current episode of major depressive disorder F32.1 and Acute non-recurrent maxillary sinusitis J01.00 [place] [id number] [place] [address] 87090- 7262 Jun, Mild intermittent asthma without complication J45.20 ; Allergic reaction, urticaria L50.0 ; Acute non-recurrent frontal sinusitis J01.10 and Obesity (BMI 30.0-34.9) E66.9 [place] [id number] [place] [address] 22464- 6488 Apr, Allergic reaction, urticaria L50.0 [place] [address] 42972- 9337 Apr, [place] [address] 92756- 4674 Mar, Angioedema, subsequent encounter T78.3XXD [place] [address] 04540- 7267 Mar, [place] [id number] [place] [address] 91291- 4032 Feb, Spongiotic dermatitis L30.8 [place] [id number] [place] [address] 15224- 0259 Jan, Recurrent urticaria L50.8 [place] [id number] [place] [address] 44998- 7898 Jan, [place] [id number] [place] [address] 68588- 2587 Jan, Allergic reaction, urticaria L50.0 ; Routine health maintenance Z00.00 ; Encounter for prescription of oral contraceptives Z30.011 ; Encounter for gynecological examination Z01.419 and High risk sexual behavior Z72.51 [place] [id number] [place] [address] 83561- 2099 Jan, Allergic reaction, urticaria L50.0 ; Routine health maintenance Z00.00 ; Family history of diabetes mellitus (DM) Z83.3 and History of endometriosis Z87.42 [place] [id number] [place] [address] 28581- 0135 Jan, Allergic reaction, urticaria L50.0 ; Exercise-induced asthma J45.990 ; Routine health maintenance Z00.00 ; Family history of diabetes mellitus (DM) Z83.3 and History of endometriosis Z87.42 [place] [id number] [place] [address] 35841- 9859 Nov, Drug screening, pre-employment Z02.1 and Pre-employment drug screening Z02.1 [place] [id number] [place] [address] 54239- 0416 Nov, Pre-employment drug screening Z02.1 [place] [id number] [place] [address] 08962- 2481 Nov, [place] [id number] [place] [address] 66889- 6150 October, Pre-employment examination Z02.1 and Visit for TB skin test Z11.1 [place] [address] 12151- 0091 Jul, Sore throat J02.9 [place] [id number] [place] [address] 23929- 7758 Feb, Counseling for control, oral contraceptives V25.01 [place] [address] 33536- 6146 Jan, Encounter for long-term (current) use of other medications V58.69 and 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 [place] [address] 06024- 9048 Jan, Mastodynia 611.71 [place] [address] 99895- 4517 Jan, [place] [address] 46279- 0415 Dec, Frequent headaches 784.0 [place] [address] 44715- 8868 Dec, Frequent headaches 784.0 and Family history of diabetes mellitus V18.0 [place] [id number] [place] [address] 55922- 8922 Sep, [place] [address] 53517- 0168 Sep, [place] [address] 93185- 2538 Jul, [place] [address] 66487- 5120 Jul, [place] [address] 32340- 4306 Jun, [place] [address] [place] [address]- 3702 Jun, [facility] [place] [facility] [address] [id number] [place] [address]- 4173 Jun, [facility] [place] [facility] [address] [id number] [place] [address]- 8778 Jun, [facility] [place] [facility] [address] [id number] [place] [address]- 0676 Apr, [facility] [place] [facility] [address] [id number] [place] [address]- 2940 Apr, [facility] [place] [facility] [address] [id number] [place] [address] Mar, [facility] [place] [facility] [address] [id number] [place] [address]- 5454 Mar, [facility] [place] [facility] [address] [id number] [place] [address]- 8520 Mar, [facility] [place] [facility] [address] [id number] [place] [address]- 1030 Mar, [facility] [place] [facility] [address] [id number] [place] [address]- 6618 Feb, [facility] [place] [facility] [address] [id number] [place] [address]- 6400 Feb, [facility] [place] [facility] [address] [id number] [place] [address]- 9247 Dec, [facility] [place] [facility] [address] [id number] [place] [address]- 1711 Dec, 2013 [facility] [place] [facility] [address] [id number] [place] [address]- 7498 Dec, [facility] [place] [facility] [address] [id number] [place] [address]- 2809 Dec, 2013 [facility] [place] [facility] [address] [id number] [place] [address]- 7330 Dec, 2013 [facility] [place] [facility] [address] [id number] [place] [address]- 8423 Dec, 2013 [facility] [place] [facility] [address] [id number] [place] [address]- 6052 Dec, [facility] [place] [facility] [address] [id number] [place] [address]- 8741 Dec, [facility] [place] [facility] [address] [id number] [place] [address]- 0215 Dec, [facility] [place] [facility] [address] [id number] [place] [address]- 2348 Dec, [facility] [place] [facility] [address] [id number] [place] [address]- 0299 Dec, [facility] [place] [facility] [address] [id number] [place] [address]- 9893 Dec, [facility] [place] [facility] [address] [id number] [place] [address]- 8607 Nov, [facility] [place] [facility] [address] [id number] [place] [address]- 2232 Nov, [facility] [place] [facility] [address] [id number] [place] [address]- 7608 Nov, [facility] [place] [facility] [address] [id number] [place] [address]- 0141 Nov, [facility] [place] [facility] [address] [id number] [place] [address]- 8177 October, [facility] [place] [facility] [address] [id number] [place] [address]- 1436 October, [facility] [place] [facility] [address] [id number] [place] [address]- 3473 October, [facility] [place] [facility] [address] [id number] [place] [address]- 5272 October, [facility] [place] [facility] [address] [id number] [place] [address]- 2546 October, [facility] [place] [facility] [address] [id number] [place] [address]- 4040 October, [facility] [place] [facility] [address] [id number] [place] [address]- 5307 Sep, [facility] [place] [facility] [address] [id number] [place] [address]- 1244 Sep, [facility] [place] [facility] [address] [id number] [place] [address]- 3919 Sep, [facility] [place] [facility] [address] [id number] [place] [address]- 9442 Sep, [facility] [place] [facility] [address] [id number] [place] [address]- 0000 Sep, [facility] [place] [facility] [address] [id number] [place] [address]- 9019 Sep, [facility] [place] [facility] [address] [id number] [place] [address]- 4682 Sep, [facility] [place] [facility] [address] [id number] [place] [address]- 9728 Sep, [facility] [place] [facility] [address] [id number] [place] [address]- 5876 Aug, [facility] [place] [facility] [address] [id number] [place] [address]- 9881 Aug, [facility] [place] [facility] [address] [id number] [place] [address]- 6461 Aug, [facility] [place] [facility] [address] [id number] [place] [address]- 4646 Aug, [facility] [place] [facility] [address] [id number] [place] [address]- 2934 Jul, [facility] [place] [facility] [address] [id number] [place] [address]- 1694 Jul, [facility] [place] [facility] [address] [id number] [place] [address]- 4481 Jul, [facility] [place] [facility] [address] [id number] [place] [address]- 1616 Jul, [facility] [place] [facility] [address] [id number] [place] [address]- 9226 Jul, [facility] [place] [facility] [address] [id number] [place] [address]- 3266 Jul, [facility] [place] [facility] [address] [id number] [place] [address]- 6908 Jun, [facility] [place] [facility] [address] [id number] [place] [address]- 8044 Jun, [facility] [place] [facility] [address] [id number] [place] [address]- 8540 Jun, [facility] [place] [facility] [address] [id number] [place] [address]- 9111 Jun, [facility] [place] [facility] [address] [id number] [place] [address]- 5620 May, [facility] [place] [facility] [address] [id number] [place] [address]- 8272 May, [facility] [place] [facility] [address] [id number] [place] [address]- 6153 May, [facility] [place] [facility] [address] [id number] [place] [address]- 6266 May, [facility] [place] [facility] [address] [id number] [place] [address]- 1780 Apr, [facility] [place] [facility] [address] [id number] [place] [address]- 6848 Apr, [facility] [place] [facility] [address] [id number] [place] [address]- 5735 15 Apr, 2013 [facility] [place] [facility] [address] [id number] [place] [address]- 8437 Apr, [facility] [place] [facility] [address] [id number] [place] [address]- 5827 Apr, [facility] [place] [facility] [address] [id number] [place] [address]- 8555 Apr, [facility] [place] [facility] [address] [id number] [place] [address]- 1992 Feb, [facility] [place] [facility] [address] [id number] [place] [address]- 8437 Feb, [facility] [place] [facility] [address] [id number] [place] [address]- 8209 Jan, [facility] [place] [facility] [address] [id number] [place] [address]- 6231 Jan, [facility] [place] [facility] [address] [id number] [place] [address]- 7946 Jan, [facility] [place] [facility] [address] [id number] [place] [address]- 3859 Jan, [facility] [place] [facility] [address] [id number] [place] [address]- 0411 Jan, [facility] [place] [facility] [address] [id number] [place] [address]- 0311 Jan, [facility] [place] [facility] [address] [id number] [place] [address]- 7706 Jan, [facility] [place] [facility] [address] [id number] [place] [address]- 9606 October, [facility] [place] [facility] [address] [id number] [place] [address]- 0389 Aug, [facility] [place] [facility] [address] [id number] [place] [address]- 3072 Jun, [facility] [place] [facility] [address] [id number] [place] [address]- 7276 Apr, [facility] [place] [facility] [address] [id number] [place] [address]- 0759 07 Apr, 2012 [facility] [address] [id number] [place] [address]- 9004 Mar, [facility] [place] [facility] [address] [id number] [place] [address]- 2093 Mar, [facility] [address] [id number] [place] [address]- 9861 Nov, [facility] [place] [facility] [address] [id number] [place] [address]- 1572 Aug, [facility] [address] [id number] [place] [address], [place] [address]- 4551 Jun, [facility] [place] [facility] [address] [id number] [place] [address]- 9842 Apr, [facility] [address] [id number] [place] [address]- 3658 Apr, [facility] [address] [id number] [place] [address]- 4277 Mar, [facility] [place] [facility] [address] [id number] [place] [address]- 3336 Nov, [facility] [address] [facility] [id number] [place] [address]- 4404 14 Jul, 2010 [facility] [place] [facility] [address] [id number] [place] [address]- 1060 14 May, 2010 [facility] [place] [facility] [address] [id number] [place] [address]- 5836 May, [facility] [place] [facility] [address] [id number] [place] 8610 30 Apr, 2010 [facility] [place] [facility] [address] [id number] [place] [address]- 0292 Mar, [facility] [place] [facility] [address] [id number] [place] [address]- 4453 Mar, [facility] [address] [facility] [id number], [place] [address]- 6[address] 2010 [facility] [address] [facility] [id number] [address] 2010 [facility] [address] [facility] [id number], [place] [address]- 7280 15 Feb, 2010 [facility] [address] [facility] [id number], [place] [address]- 7964 Dec, [facility] [address] [facility] [id number], [place] [address]- 1701 17 Nov, 2009 [facility] [address] [facility] [id number], [place] [address]- 8463 10 May, 2009 [facility] [address] [address]- 4693 May, [facility] [address] [address]- 1302 Apr, [facility] [address], [place] [address]- 4846 Apr, [facility] [address] [id number] [address]- 2377 Apr, [facility] [address] [id number] 67[address] Nov, IMMUNIZATIONS No Known Immunizations SOCIAL HISTORY Never Assessed REASON FOR VISIT FYI only PLAN OF CARE VITAL SIGNS MEDICATIONS Unknown Medications RESULTS No Results PROCEDURES No Known procedures INSTRUCTIONS MEDICATIONS ADMINISTERED No Known Medications MEDICAL (GENERAL) HISTORY Type Description Date Medical History depression Medical History migraine Surgical History left knee scope x 2 Surgical History tonsils and adenoid Surgical History tube ears Surgical History wisdom teeth removal
--- OUTSIDE RECORDS SUMMARY | 2017-12-13 17:44 | XMS REPORT ---
Author Author LUL JULIAN Organization [facility] Address [address] [place] [address] Care Team Providers Care Motion Picture Scene Builder Name Role Phone JULIANGURINDER AndinoELE Unavailable PROBLEMS Type Condition ICD9-CM Code [id number] Code Onset Dates Condition Status SNOMED Code Problem Mild intermittent asthma without complication J45.20 Active 554105389 Assessment Spongiotic dermatitis L30.8 16 Feb, 2016 Active 97603867 Problem Encounter for prescription of oral contraceptives Z30.011 Active 852019448 Problem Encounter for gynecological examination Z01.419 Active 902048933 Problem Allergic reaction, urticaria L50.0 Active 13516048 Problem Routine health maintenance Z00.00 Active 754128737 Problem High risk sexual behavior Z72.51 Active 273469402 Problem Exercise-induced asthma J45.990 Active 06681111 ALLERGIES Substance Reaction Event Type Date Status pollen, enviromental allergies sinus congestion Non Drug Allergy Feb, Active SOCIAL HISTORY No smoking Hx information available PLAN OF CARE VITAL SIGNS Height 63 in 2016-03-14 Weight 179.5 lbs 2016-03-14 Heart Rate 70 bpm 2016-03-14 Respiratory Rate 18 2016-03-14 BMI 31.79 kg/m2 2016-03-14 Blood pressure systolic 108 mmHg 2016-03-14 Blood pressure diastolic 72 mmHg 2016-03-14 MEDICATIONS Medication Instructions Dosage Frequency Start Date End Date Duration Status HydrOXYzine HCl 25 MG Orally every 8 hrs 1 tablet as needed 8h Jan, Active Loestrin 1/20 (21) 1-20 MG-MCG Orally Once a day 1 tablet 24h 28 days Active Singulair 10 mg Orally Once a day 1 tablet in the evening 24h Jan, Active ProAir HFA 90 mcg/actuation Inhalation every 4 hrs 2-4 Inhalations by Inhalation route every 4 hours PRN 4h Apr, Active RESULTS Name Result Date Reference Range CELIAC PANEL (OUTSIDE LAB) 2016-03-19 PROCEDURES Procedure Date Ordered Related Diagnosis Body Site Office Visit, Est Pt., Level 3 Mar 14, 2016 IMMUNIZATIONS No Known Immunizations
--- OUTSIDE RECORDS SUMMARY | 2017-12-13 17:44 | XMS REPORT ---
Author Author IESHA LUL Organization [facility] Address [address] [place] [address] Care Team Providers Care Secretary Of Police Name Role Phone JULIANLUL Andino Unavailable PROBLEMS Type Condition ICD9-CM Code QYA71-WX Code Onset Dates Condition Status SNOMED Code Problem Intractable migraine without aura and with status migrainosus G43.011 Active 458109263 Problem Moderate single current episode of major depressive disorder F32.1 Active 97510564 Problem Mild intermittent asthma without complication J45.20 Active 795066959 Problem Obesity (BMI 30.0-34.9) E66.9 Active 960047554407325 Problem Allergic reaction, urticaria L50.0 Active 58098679 ALLERGIES No Information ENCOUNTERS Encounter Location Date Diagnosis [facility] [id number] [place] [address] 24116- 8436 Sep, Mild intermittent asthma without complication J45.20 ; Allergic reaction, urticaria L50.0 ; Obesity (BMI 30.0-34.9) E66.9 ; Moderate single current episode of major depressive disorder F32.1 ; Intractable migraine without aura and with status migrainosus G43.011 and Oral contraceptive pill surveillance Z30.41 [facility] [id number] [place] [address]64 -2115 Aug, Toe pain, left M79.675 ; Left anterior knee pain M25.562 and Closed nondisplaced fracture of distal phalanx of left great toe, initial encounter S92.425A [facility] [id number] [place] [address] 08713- 7819 Aug, Rash and nonspecific skin eruption R21 [facility] [id number] [place] [address] 91362- 6609 Jun, Complex tear of medial meniscus of left knee as current injury, initial encounter S83.232A [facility] [id number] [place] [address] 32989- 8657 May, Moderate single current episode of major depressive disorder F32.1 ; Oral contraceptive pill surveillance Z30.41 and Obesity (BMI 30.0-34.9) E66.9 [facility] [id number] [place] [address] 46238- 7960 May, Encounter for prescription of oral contraceptives Z30.011 [place] [id number] [place] [address] 49163- 2226 May, [facility] [address] [address] -[address]289 Apr, Intractable migraine without aura and with status migrainosus G43.011 [place] [id number] [place] [address] 61983- 2656 Apr, [place] [id number] [place] [address] 15007- 0589 Mar, [place] [id number] [place] [address] 86375- 2448 Mar, Encounter for well woman exam with routine gynecological exam Z01.419 ; Moderate single current episode of major depressive disorder F32.1 ; Screening breast examination Z12.31 ; Screen for STD (sexually transmitted disease) Z11.3 ; Vaginal candidiasis B37.3 and Dietary counseling Z71.3 [place] [id number] [place] [address] 13053- 0959 Feb, [place] [id number] [place] [place] [address] 91132- 9590 Jan, [place] [address] 98476- 9947 Jan, [place] [id number] [place] [address] 30172- 6810 Jan, Complex tear of medial meniscus of left knee as current injury, initial encounter S83.232A [facility] [id number] [place] [address] 75308- 0364 Nov, Acute pain of left knee M25.562 [facility] [id number] [place] [address] 16698 -0327 Sep, Sprain of left ankle, unspecified ligament, initial encounter S93.402A [facility] [address] 25165- 8579 Aug, [facility] [address] 36384- 1051 Aug, [place] [address] 66657- 0269 Jul, Moderate single current episode of major depressive disorder F32.1 and Acute non-recurrent maxillary sinusitis J01.00 [place] [address] 14665- 6272 Jun, Mild intermittent asthma without complication J45.20 ; Allergic reaction, urticaria L50.0 ; Acute non-recurrent frontal sinusitis J01.10 and Obesity (BMI 30.0-34.9) E66.9 [place] [address] 42388- 8315 Apr, Allergic reaction, urticaria L50.0 [facility] [address] 96927- 2605 Apr, [place] [address] 04214- 2008 Mar, Angioedema, subsequent encounter T78.3XXD [place] [address] 31206- 8172 05 Mar, 2016 [place] [address] 30273- 9372 16 Feb, 2016 Spongiotic dermatitis L30.8 [place] [address] [place] [address]- 9423 Jan, Recurrent urticaria L50.8 [place] [id number] [place] [address] 03048- 0135 Jan, [place] [id number] [place] [address] 51628- 0885 Jan, Allergic reaction, urticaria L50.0 ; Routine health maintenance Z00.00 ; Encounter for prescription of oral contraceptives Z30.011 ; Encounter for gynecological examination Z01.419 and High risk sexual behavior Z72.51 [place] [id number] [place] [address] 86723- 1243 03 Jan, 2016 Allergic reaction, urticaria L50.0 ; Routine health maintenance Z00.00 ; Family history of diabetes mellitus (DM) Z83.3 and History of endometriosis Z87.42 [place] [id number] [place] [address] 91833- 8013 Jan, Allergic reaction, urticaria L50.0 ; Exercise-induced asthma J45.990 ; Routine health maintenance Z00.00 ; Family history of diabetes mellitus (DM) Z83.3 and History of endometriosis Z87.42 [place] [id number] [place] [address] 49745- 1589 Nov, Drug screening, pre-employment Z02.1 and Pre-employment drug screening Z02.1 [place] [id number] [place] [address] 82709- 3460 Nov, Pre-employment drug screening Z02.1 [place] [id number] [place] [address] 00694- 0804 Nov, [address] 24221- 0460 October, Pre-employment examination Z02.1 and Visit for TB skin test Z11.1 [place] [id number] [place] [address] 02960- 6629 Jul, Sore throat J02.9 [facility] [id number] [place] [address] 11747- 3377 Feb, Counseling for control, oral contraceptives V25.01 [facility] [address] 27068- 5027 Jan, Encounter for long-term (current) use of other medications V58.69 and 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 [facility] [address] 19482- 8903 Jan, Mastodynia 611.71 [place] [address] 58983- 2768 Jan, [facility] [address] 42757- 9032 Dec, Frequent headaches 784.0 [place] [address] 36869- 4889 Dec, Frequent headaches 784.0 and Family history of diabetes mellitus V18.0 [facility] [id number] [place] [address] 59215- 6231 Sep, [facility] [id number] [place] [address] 43735- 3427 Sep, [facility] [id number] [place] [address] 89353- 9742 Jul, [facility] [id number] [place] [address] 19412- 1289 Jul, [facility] [id number] [place] [address] 48409- 9124 Jun, [facility] [address] 63515- 6840 Jun, [facility] [id number] [place] [address] 31203- 1288 Jun, [facility] [address] [place] [address]- 4448 Jun, [facility] [place] [facility] [address] [id number] [place] [address]- 5709 Apr, [facility] [place] [facility] [address] [id number] [place] [address]- 5703 Apr, [facility] [place] [facility] [address] [id number] [place] [address]- 9378 Mar, [facility] [place] [facility] [address] [id number] [place] [address]- 3238 14 Mar, 2014 [facility] [place] [facility] [address] [id number] [place] [address]- 1076 Mar, [facility] [place] [facility] [address] [id number] [place] [address]- 5611 Mar, [facility] [place] [facility] [address] [id number] [place] [address]- 1614 Feb, [facility] [place] [facility] [address] [id number] [place] [address]- 5547 Feb, [facility] [place] [facility] [address] [id number] [place] [address]- 2447 Dec, [facility] [place] [facility] [address] [id number] [place] [address]- 9326 Dec, [facility] [place] [facility] [address] [id number] [place] [address]- 0149 Dec, [facility] [place] [facility] [address] [id number] [place] [address]- 0112 Dec, [facility] [place] [facility] [address] [id number] [place] [address]- 3276 Dec, [facility] [place] [facility] [address] [id number] [place] [address]- 9194 Dec, [facility] [place] [facility] [address] [id number] [place] [address]- 7260 Dec, [facility] [place] [facility] [address] [id number] [place] [address]- 6316 Dec, [facility] [place] [facility] [address] [id number] [place] [address]- 3450 Dec, [facility] [place] [facility] [address] [id number] [place] [address]- 0845 Dec, [facility] [place] [facility] [address] [id number] [place] [address]- 7191 Dec, [facility] [place] [facility] [address] [id number] [place] [address]- 8222 Dec, [facility] [place] [facility] [address] [id number] [place] [address]- 8352 Nov, [facility] [place] [facility] [address] [id number] [place] [address]- 4852 Nov, [facility] [place] [facility] [address] [id number] [place] [address]- 4814 Nov, [facility] [place] [facility] [address] [id number] [place] [address]- 3202 Nov, [facility] [place] [facility] [address] [id number] [place] [address]- 2091 October, [facility] [place] [facility] [address] [id number] [place] [address]- 1354 October, [facility] [place] [facility] [address] [id number] [place] [address]- 5688 October, [facility] [place] [facility] [address] [id number] [place] [address]- 9763 October, [facility] [place] [facility] [address] [id number] [place] [address]- 5009 October, [facility] [place] [facility] [address] [id number] [place] [address]- 0522 October, [facility] [place] [facility] [address] [id number] [place] [address]- 3253 Sep, [facility] [place] [facility] [address] [id number] [place] [address]- 8668 Sep, [facility] [place] [facility] [address] [id number] [place] [address]- 0585 Sep, [facility] [place] [facility] [address] [facility] [id number] [place] [address]- 0862 Sep, [facility] [place] [facility] [address] [id number] [place] [address]- 8198 Sep, [facility] [place] [facility] [address] [id number] [place] [address]- 3882 Sep, [facility] [place] [facility] [address] [facility] [id number] [place] [address]- 4560 Sep, [facility] [place] [facility] [address] [facility] [id number] [place] [address]- 6351 Sep, [facility] [place] [facility] [address] [id number] [place] [address]- 6330 Aug, [facility] [place] [facility] [address] [id number] [place] [address]- 3765 Aug, [facility] [place] [facility] [address] [facility] [id number] [place] [address]- 7419 Aug, [facility] [place] [facility] [address] [id number] [place] [address]- 0809 Aug, [facility] [place] [facility] [address] [id number] [place] [address]- 1894 Jul, [facility] [place] [facility] [address] [id number] [place] [address]- 9945 Jul, [facility] [place] [facility] [address] [id number] [place] [address]- 4633 Jul, [facility] [place] [facility] [address] [id number] [place] [address]- 6452 Jul, [facility] [place] [facility] [address] [id number] [place] [address]- 8161 Jul, [facility] [place] [facility] [address] [id number] [place] [address]- 9566 Jul, [facility] [place] [facility] [address] [id number] [place] [address]- 6109 Jun, [facility] [place] [facility] [address] [id number] [place] [address]- 8043 Jun, [facility] [place] [facility] [address] [id number] [place] [address]- 3920 Jun, [facility] [place] [facility] [address] [id number] [place] [address]- 3040 Jun, [facility] [place] [facility] [address] [id number] [place] [address]- 0180 May, [facility] [place] [facility] [address] [id number] [place] [address]- 2540 May, [facility] [place] [facility] [address] [id number] [place] [address]- 7115 May, [facility] [place] [facility] [address] [id number] [place] [address]- 2560 May, [facility] [place] [facility] [address] [id number] [place] [address]- 6542 Apr, [facility] [place] [facility] [address] [id number] [place] [address]- 1206 Apr, [facility] [place] [facility] [address] [id number] [place] [address]- 6588 Apr, [facility] [place] [facility] [address] [id number] [place] [address] 2546 Apr, [facility] [place] [facility] [address] [id number] [place] [address]- 4569 Apr, [facility] [place] [facility] [address] [id number] [place] [address]- 3331 Apr, [facility] [place] [facility] [address] [id number] [place] [address]- 5040 Feb, [facility] [place] [facility] [address] [id number] [place] [address]- 5980 Feb, [facility] [place] [facility] [address] [id number] [place] [address]- 0358 Jan, [facility] [place] [facility] [address] [id number] [place] [address]- 3384 Jan, [facility] [place] [facility] [address] [id number] [place] [address]- 3708 Jan, [facility] [place] [facility] [address] [id number] [place] [address]- 3834 Jan, [facility] [place] [facility] [address] [id number] [place] [address]- 1510 Jan, [facility] [place] [facility] [address] [id number] [place] [address]- 0940 Jan, [facility] [place] [facility] [address] [id number] [place] [address]- 2428 Jan, [facility] [place] [facility] [address] [id number] [place] [address]- 2877 October, [facility] [place] [facility] [address] [id number], [place] [address]- 8925 Aug, [facility] [place] [facility] [address] [id number], [place] [address]- 2913 Jun, [facility] [place] [facility] [address] [id number] [place] [address]- 9617 Apr, [facility] [place] [facility] [address] [id number] [place] [address]- 0887 Apr, [facility] [place] [facility] [address] [id number] [place] [address]- 7683 Mar, [facility] [place] [facility] [address] [id number] [place] [address]- 9027 Mar, [facility] [place] [facility] [address] [id number] [place] [address]- 6848 Nov, [facility] [place] [facility] [address] [id number] [place] [address]- 3795 Aug, [facility] [place] [facility] [address] [id number] [place] [address]- 5309 Jun, [facility] [place] [facility] [address] [id number] [place] [address]- 9412 30 Apr, 2011 [facility] [place] [facility] [address] [id number] [place] [address]- 8223 28 Apr, 2011 [facility] [place] [facility] [address] [id number] [place] [address]- 6045 Mar, [facility] [place] [facility] [address] [id number] [place] [address]- 8222 Nov, [facility] [place] [facility] [address] [id number] [place] [address]- 0329 14 Jul, 2010 [facility] [place] [facility] [address] [id number] [place] [address]- 4497 14 May, 2010 [facility] [place] [facility] [address] [facility] [id number] [place] [address]- 1144 14 May, 2010 [facility] [place] [facility] [address] [id number] [place] [address]- 5573 30 Apr, 2010 [facility] [place] [facility] [address] [id number] [place] [address]- 8341 Mar, [facility] [place] [facility] [address] [id number] [place] [address]- 0136 Mar, [facility] [place] [facility] [address] [id number] [place] [address]- 6292 2010 [facility] [place] [facility] [address] [id number] [place] [address]- 5227 2010 [facility] [address] [id number] [address]- 3124 15 Feb, 2010 [facility] [address] [address]- 2662 Dec, [facility] [address] [address]- 3008 17 Nov, 2009 [facility] [address] 4893 May, [facility] [address] [address]- 6276 May, [facility] [address] [address]- 1916 Apr, [facility] [address] [address]- 6349 Apr, [facility] [address] [address]- 6378 Apr, [facility] [address] [id number] [address]- 8397 Nov, IMMUNIZATIONS No Known Immunizations SOCIAL HISTORY Never Assessed REASON FOR VISIT eye exam PLAN OF CARE VITAL SIGNS MEDICATIONS Unknown Medications RESULTS No Results PROCEDURES No Known procedures INSTRUCTIONS MEDICATIONS ADMINISTERED No Known Medications MEDICAL (GENERAL) HISTORY Type Description Date Medical History depression Medical History migraine Surgical History left knee scope x 2 Surgical History tonsils and adenoid Surgical History tube ears Surgical History wisdom teeth removal
--- OUTSIDE RECORDS SUMMARY | 2017-12-13 17:44 | XMS REPORT ---
Author LEISA Jackson [facility] eClinical[employer] Address Unknown Phone Unavailable Care Team Providers Care Production Finisher Name Role Phone LEISA SOMMERS CP Unavailable Allergies, Adverse Reactions, Alerts Substance Reaction Event Type pollen, enviromental allergies sinus congestion Non Drug Allergy Problems Problem Type Condition Code Onset Dates Condition Status Assessment Recurrent urticaria L50.8 Active Problem Encounter for gynecological examination Z01.419 [...] End Date Status Dosage Loestrin 07/18 (21) [facility] [place] [address]-41 1-20 MG-MCG Orally Once a day 1 tablet EPINEPHrine [facility] [place] [address]-44 0.3 MG/0.3ML Injection one time Jan 29, 2016 Inject into thigh if needed for facial edema or SHORTNESS of BREATH- then go to ER Diflucan [facility] [place] [address]-62 150 MG Orally Once a day Feb 14, 2016 1 tablet HydrOXYzine HCl [facility] [place] [address]-66 25 MG Orally every 8 hrs Jan 29, 2016 1 tablet as needed ProAir HFA [facility] [place] [address]-08 90 mcg/actuation Inhalation every 4 hrs Apr 2-4 Inhalations by Inhalation route every 4 hours PRN Ibuprofen [facility] [place] [address]-27 200 MG Orally every 6 hrs 1 tablet as needed Singulair [facility] [place] [address]-57 10 mg Orally Once a day Jan 29, 2016 1 tablet in the evening Famotidine [facility] [place] [address]-53 20 mg Orally Once a day Feb 07, 2016 1 tablet at bedtime Benadryl Allergy [facility] [place] [address]-80 25 MG Orally every 6 hrs 1 tablet as needed Procedures Procedure Coding System Code Date Office Visit, Est Pt., Level 4 CPT-4 47897 Feb 14, 2016 Vital Signs Date/Time: Feb 14, 2016 Cardiac Monitoring Heart Rate 70 bpm Weight 173 lbs Height 63 in Wt Percentile 92.61 % BMI 30.64 Index Blood Pressure Diastolic 80 mmHg Blood Pressure Systolic 140 mmHg BMIPercentile 94.01 % Results No Known Results Summary Purpose eClinicalWorks Submission
--- OUTSIDE RECORDS SUMMARY | 2017-12-13 17:44 | XMS REPORT ---
Author Author LUL JULIAN Organization [facility] Address [address] [place] [address] Care Team Providers Care Engineering Supplies Sales Name Role Phone LUL JULIAN Unavailable PROBLEMS Type Condition ICD9-CM Code OII23-TV Code Onset Dates Condition Status SNOMED Code Problem Mild intermittent asthma without complication J45.20 Active 250641984 Problem Exercise-induced asthma J45.990 Active 27662165 Problem Allergic reaction, urticaria L50.0 Active 09523472 Problem Moderate single current episode of major depressive disorder F32.1 Active 68969502 Problem Obesity (BMI 30.0-34.9) E66.9 Active 977083797124518 Problem Encounter for prescription of oral contraceptives Z30.011 Active 479420315 Problem Routine health maintenance Z00.00 Active 898015344 Problem High risk sexual behavior Z72.51 Active 332264506 Problem Encounter for gynecological examination Z01.419 Active 418963109 ALLERGIES Substance Reaction Event Type Date Status Levsin lethargic Drug Allergy Jun, Active pollen, enviromental allergies sinus congestion Non Drug Allergy Jun, Active SOCIAL HISTORY No smoking Hx information available PLAN OF CARE Activity Details Follow Up 3 Months Reason:[facility] VITAL SIGNS Height 63 in 2016-07-08 Weight 183.3 lbs 2016-07-08 Temperature 98.4 degrees Fahrenheit 2016-07-08 Heart Rate 72 bpm 2016-07-08 Respiratory Rate 16 2016-07-08 BMI 32.47 kg/m2 2016-07-08 Blood pressure systolic 122 mmHg 2016-07-08 Blood pressure diastolic 76 mmHg 2016-07-08 MEDICATIONS Medication Instructions Dosage Frequency Start Date End Date Duration Status Augmentin 875-125 MG Orally every 12 hrs 1 tablet 12h Jun,Jun 10 day(s) Active HydrOXYzine HCl 25 MG Orally every 8 hrs 1 tablet as needed 8h Jan, Active Zyrtec Allergy 10 mg Orally 2 times a day 2 tablets in the am and two tablets in the evening 12h 7 Mar, 2017 90 days Active EPINEPHrine 0.3 MG/0.3ML Injection one time Inject into thigh if needed for facial edema or SHORTNESS of BREATH- then go to ER Jan, Active Singulair 10 mg Orally Once a day 1 tablet in the evening 24h 90 days Active Loestrin 1/20 (21) 1-20 MG-MCG Orally Once a day 1 tablet 24h 28 days Active ProAir HFA 90 mcg/actuation Inhalation every 4 hrs 2-4 Inhalations by Inhalation route every 4 hours PRN 4h Apr, 365 days Active Pepcid 20 mg Orally 2 times a day 1 tablet 12h Active Benadryl 25 MG Active RESULTS No Results PROCEDURES Procedure Date Ordered Related Diagnosis Body Site Office Visit, Est Pt., Level 4 Jul 08, 2016 IMMUNIZATIONS No Known Immunizations
--- OUTSIDE RECORDS SUMMARY | 2017-12-13 17:44 | XMS REPORT ---
Author Author LUL JULIAN Organization [employer] Address Unknown Phone Unavailable Care Team Providers Care Supervisor [employer] Name Role Phone LUL JULIAN CP Unavailable Allergies No Known Allergies Problems Problem Type Condition Code Onset Dates Condition Status Problem Encounter for gynecological examination Z01.419 Active Problem High risk sexual behavior Z72.51 Active Problem Encounter for prescription of oral contraceptives Z30.011 Active Problem Routine health maintenance Z00.00 Active Problem Mild intermittent asthma without complication J45.20 Active Problem Exercise-induced asthma J45.990 Active Problem Allergic reaction, urticaria L50.0 Active Medications No Known Medications Results No Known Results Summary Purpose [employer] Submission
--- OUTSIDE RECORDS SUMMARY | 2017-12-13 17:44 | XMS REPORT ---
Author Author STAR MORFIN Organization [employer] Address Unknown Phone Unavailable Care Team Providers Care Control Systems Eng Name Role Phone STAR MORFIN CP Unavailable Allergies, Adverse Reactions, Alerts Substance Reaction Event Type N.K.D.A. Info Not Available Non Drug Allergy Problems Problem Type Condition ICD-9 Code Onset Dates Condition Status Problem Acute sinusitis, unspecified 461.9 Active Assessment Mastodynia 611.71 Active Problem Pain in joint, lower leg 719.46 Active Problem Pain in joint, ankle and foot 719.47 Active Problem Bipolar I disorder, most recent episode (or current) depressed, unspecified 296.50 Active Problem Abnormal involuntary movements 781.0 Active Problem Anorexia 783.0 Active Problem Other general medical examination for administrative purposes V70.3 Active Problem Other malaise and fatigue 780.79 Active Problem Encounter for long-term (current) use of other medications V58.69 Active Problem Acute upper respiratory infections of unspecified site 465.9 Active Problem Asthma, unspecified, unspecified status 493.90 Active Problem Acute pharyngitis 462 Active Problem Contusion of chest wall 922.1 Active Problem Insomnia, unspecified 780.52 Active Problem Adjustment disorder with depressed mood 309.0 Active Problem Dizziness and giddiness 780.4 Active Problem Major depressive disorder, single episode, unspecified 296.20 Active Problem Need for prophylactic vaccination and inoculation, Influenza V04.81 Active Problem Unspecified conjunctivitis 372.30 Active Problem Blepharitis, unspecified 373.00 Active Problem Headache 784.0 Active Problem Pain in joint, forearm 719.43 Active Problem MENINGOCOCCAL DX V03.89 Active Problem Lumbago 724.2 Active Medications Medication Code System Code Instructions Start Date End Date Status Dosage Loestrin 07/18 () [facility] [address]-93 1-20 MG-MCG Orally Once a day 1 tablet Cymbalta [facility] [address]-07 60 mg Jul 18, 2014 take 1 capsule (60 mg) by oral route once daily Ibuprofen [facility] [address]-49 600 mg Apr 07, 2014 take 1 tablet by Oral route 3 times per day with food PRN for pain. take with food. Naproxen [facility] [address]-85 500 mg Mar 01, 2014 take 1 tablet ( 500 mg) by oral route 2 times per day with food ProAir HFA [facility] [address]-68 90 mcg/actuation May 13, 2013 2-4 Inhalations by Inhalation route every 4 hours PRN Procedures Procedure Coding System Code Date Office Visit, Est Pt., Level 3 CPT-4 38358 Feb 19, 2015 Vital Signs Date/Time: Feb 19, 2015 Temperature 99.1 F Weight 145.0 lbs Height 63 in Wt Percentile 77.71 % BMI 25.68 Index Blood Pressure Diastolic 70 mmHg Blood Pressure Systolic 106 mmHg BMIPercentile 83.5 % Results No Known Results Summary Purpose [employer] Submission
--- OUTSIDE RECORDS SUMMARY | 2017-12-13 17:44 | XMS REPORT ---
Author Author LUL JULIAN Organization [employer] Address Unknown Phone Unavailable Care Team Providers Care Yard Clerk Name Role Phone LUL JULIAN CP Unavailable [...] Instructions Start Date End Date Status Dosage EPINEPHrine [facility] [address]-25 0.3 MG/0.3ML Injection one time Jan 29, 2016 Inject into thigh if needed for facial edema or SHORTNESS of BREATH- then go to ER Results No Known Results Summary Purpose [employer] Submission
--- OUTSIDE RECORDS SUMMARY | 2017-12-13 17:45 | XMS REPORT ---
Author Author LLU JULIAN Organization [facility] Address [address] [place] [address] Care Team Providers Care Air Sampling And Monitoring Name Role Phone IESHAGURINDERLUL Unavailable PROBLEMS Type Condition ICD9-CM Code KSA30-YR Code Onset Dates Condition Status SNOMED Code Problem Intractable migraine without aura and with status migrainosus G43.011 Active 911761926 Problem Moderate single current episode of major depressive disorder F32.1 Active 89380341 Problem Mild intermittent asthma without complication J45.20 Active 035574307 Problem Obesity (BMI 30.0-34.9) E66.9 Active [id number] Problem Allergic reaction, urticaria L50.0 Active [id number] ALLERGIES No Information ENCOUNTERS Encounter Location Date Diagnosis [facility] [id number] [place] [address] Dec, [facility] [address] [address] October, [facility] [address] [address] Sep, Mild intermittent asthma without complication J45.20 ; Allergic reaction, urticaria L50.0 ; Obesity (BMI 30.0-34.9) E66.9 ; Moderate single current episode of major depressive disorder F32.1 ; Intractable migraine without aura and with status migrainosus G43.011 and Oral contraceptive pill surveillance Z30.41 [facility] [id number] [place] [address] Aug, Toe pain, left M79.675 ; Left anterior knee pain M25.562 and Closed nondisplaced fracture of distal phalanx of left great toe, initial encounter S92.425A [place] [address] [place] [address] Aug, Rash and nonspecific skin eruption R21 [place] [address] [address]- 6441 Jun, Complex tear of medial meniscus of left knee as current injury, initial encounter S83.232A [place] [address] [address]- 5297 May, Moderate single current episode of major depressive disorder F32.1 ; Oral contraceptive pill surveillance Z30.41 and Obesity (BMI 30.0-34.9) E66.9 [place] [address] [address]47- 67[address] May, Encounter for prescription of oral contraceptives Z30.011 [place] [address] [address]- 3933 May, [facility] [address] [address] Apr, Intractable migraine without aura and with status migrainosus G43.011 [place] [address] 26596- 6647 Apr, [place] [id number] [place] [address] 04187- 8799 Mar, [place] [id number] [place] [address] 69434- 4318 Mar, Encounter for well woman exam with routine gynecological exam Z01.419 ; Moderate single current episode of major depressive disorder F32.1 ; Screening breast examination Z12.31 ; Screen for STD (sexually transmitted disease) Z11.3 ; Vaginal candidiasis B37.3 and Dietary counseling Z71.3 [place] [address] [address]- [address]30 06 Feb, 2017 [facility] [address] [address]- 0394 Jan, [place] [address] [place] [address] 98[address] Jan, [facility] [id number] [place] [address] 01448- 6588 Jan, Complex tear of medial meniscus of left knee as current injury, initial encounter S83.232A [facility] [address] [address]- 3770 Nov, Acute pain of left knee M25.562 [facility] [id number] [place] [address] Sep, Sprain of left ankle, unspecified ligament, initial encounter S93.402A [place] [address] 65894- 2872 Aug, [place] [address] 29863- 6257 Aug, [place] [address] 8[address]- 9380 Jul, Moderate single current episode of major depressive disorder F32.1 and Acute non-recurrent maxillary sinusitis J01.00 [place] [id number] [place] [address] 84901- 8738 Jun, Mild intermittent asthma without complication J45.20 ; Allergic reaction, urticaria L50.0 ; Acute non-recurrent frontal sinusitis J01.10 and Obesity (BMI 30.0-34.9) E66.9 [place] [id number] [place] [address] 74544- 4745 Apr, Allergic reaction, urticaria L50.0 [place] [address] [address]59- 0901 Apr, [place] [address] 03913- 5008 Mar, Angioedema, subsequent encounter T78.3XXD [place] [address] 28968- 2676 Mar, [place] [id number] [place] [address] 82336- 2310 Feb, Spongiotic dermatitis L30.8 [place] [id number] [place] [address] 86009- 6224 Jan, Recurrent urticaria L50.8 [place] [id number] [place] [address] 37911- 8284 Jan, [place] [id number] [place] [address] 88711- 8799 Jan, Allergic reaction, urticaria L50.0 ; Routine health maintenance Z00.00 ; Encounter for prescription of oral contraceptives Z30.011 ; Encounter for gynecological examination Z01.419 and High risk sexual behavior Z72.51 [place] [id number] [place] [address] 72910- 6818 Jan, Allergic reaction, urticaria L50.0 ; Routine health maintenance Z00.00 ; Family history of diabetes mellitus (DM) Z83.3 and History of endometriosis Z87.42 [place] [id number] [place] [address] 97734- 5767 Jan, Allergic reaction, urticaria L50.0 ; Exercise-induced asthma J45.990 ; Routine health maintenance Z00.00 ; Family history of diabetes mellitus (DM) Z83.3 and History of endometriosis Z87.42 [place] [id number] [place] [address] 02837- 1810 Nov, Drug screening, pre-employment Z02.1 and Pre-employment drug screening Z02.1 [place] [id number] [place] [address] 08395- 2234 Nov, Pre-employment drug screening Z02.1 [place] [id number] [place] [address] 24448- 8868 Nov, [place] [id number] [place] [address] 31329- 7136 October, Pre-employment examination Z02.1 and Visit for TB skin test Z11.1 [place] [address] 44533- 0343 Jul, Sore throat J02.9 [place] [id number] [place] [address] 23673- 1279 Feb, Counseling for control, oral contraceptives V25.01 [place] [address] 2[address]- 2392 Jan, Encounter for long-term (current) use of other medications V58.69 and 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 [place] [address] 66766- 7146 Jan, Mastodynia 611.71 [place] [address] 84141- 3679 Jan, [place] [address] 33165- 4945 Dec, Frequent headaches 784.0 [place] [address] 98281- 8894 Dec, Frequent headaches 784.0 and Family history of diabetes mellitus V18.0 [place] [id number] [place] [address] 45122- 5771 Sep, [place] [address] 24280- 6560 Sep, [place] [address] 06221- 9173 Jul, [place] [address] 12414- 5665 Jul, [place] [address] 14330- 1306 Jun, [place] [address] [place] [address]- 0461 Jun, [facility] [place] [facility] [address] [id number] [place] [address]- 5790 Jun, [facility] [place] [facility] [address] [id number] [place] [address]- 7815 Jun, [facility] [place] [facility] [address] [id number] [place] [address]- 9431 Apr, [facility] [place] [facility] [address] [id number] [place] [address]- 6419 Apr, [facility] [place] [facility] [address] [id number] [place] [address] Mar, [facility] [place] [facility] [address] [id number] [place] [address]- 9479 Mar, [facility] [place] [facility] [address] [id number] [place] [address]- 3677 Mar, [facility] [place] [facility] [address] [id number] [place] [address]- 0244 Mar, [facility] [place] [facility] [address] [id number] [place] [address]- 4217 Feb, [facility] [place] [facility] [address] [id number] [place] [address]- 0066 Feb, [facility] [place] [facility] [address] [id number] [place] [address]- 2624 Dec, [facility] [place] [facility] [address] [id number] [place] [address]- 8120 Dec, 2013 [facility] [place] [facility] [address] [id number] [place] [address]- 8023 Dec, [facility] [place] [facility] [address] [id number] [place] [address]- 9344 Dec, 2013 [facility] [place] [facility] [address] [id number] [place] [address]- 0579 Dec, 2013 [facility] [place] [facility] [address] [id number] [place] [address]- 9565 Dec, 2013 [facility] [place] [facility] [address] [id number] [place] [address]- 7394 Dec, [facility] [place] [facility] [address] [id number] [place] [address]- 8573 Dec, [facility] [place] [facility] [address] [id number] [place] [address]- 8152 Dec, [facility] [place] [facility] [address] [id number] [place] [address]- 1227 Dec, [facility] [place] [facility] [address] [id number] [place] [address]- 7378 Dec, [facility] [place] [facility] [address] [id number] [place] [address]- 5950 Dec, [facility] [place] [facility] [address] [id number] [place] [address]- 6050 Nov, [facility] [place] [facility] [address] [id number] [place] [address]- 8657 Nov, [facility] [place] [facility] [address] [id number] [place] [address]- 3869 Nov, [facility] [place] [facility] [address] [id number] [place] [address]- 5811 Nov, [facility] [place] [facility] [address] [id number] [place] [address]- 0426 October, [facility] [place] [facility] [address] [id number] [place] [address]- 2889 October, [facility] [place] [facility] [address] [id number] [place] [address]- 7843 October, [facility] [place] [facility] [address] [id number] [place] [address]- 9196 October, [facility] [place] [facility] [address] [id number] [place] [address]- 2546 October, [facility] [place] [facility] [address] [id number] [place] [address]- 4890 October, [facility] [place] [facility] [address] [id number] [place] [address]- 1556 Sep, [facility] [place] [facility] [address] [id number] [place] [address]- 5400 Sep, [facility] [place] [facility] [address] [id number] [place] [address]- 5440 Sep, [facility] [place] [facility] [address] [id number] [place] [address]- 1378 Sep, [facility] [place] [facility] [address] [id number] [place] [address]- 1476 Sep, [facility] [place] [facility] [address] [id number] [place] [address]- 9021 Sep, [facility] [place] [facility] [address] [id number] [place] [address]- 5851 Sep, [facility] [place] [facility] [address] [id number] [place] [address]- 6339 Sep, [facility] [place] [facility] [address] [id number] [place] [address]- 4184 Aug, [facility] [place] [facility] [address] [id number] [place] [address]- 0372 Aug, [facility] [place] [facility] [address] [id number] [place] [address]- 0084 Aug, [facility] [place] [facility] [address] [id number] [place] [address]- 2376 Aug, [facility] [place] [facility] [address] [id number] [place] [address]- 0737 Jul, [facility] [place] [facility] [address] [id number] [place] [address]- 7123 Jul, [facility] [place] [facility] [address] [id number] [place] [address]- 3202 Jul, [facility] [place] [facility] [address] [id number] [place] [address]- 6846 Jul, [facility] [place] [facility] [address] [id number] [place] [address]- 7176 Jul, [facility] [place] [facility] [address] [id number] [place] [address]- 1306 Jul, [facility] [place] [facility] [address] [id number] [place] [address]- 6086 Jun, [facility] [place] [facility] [address] [id number] [place] [address]- 7255 Jun, [facility] [place] [facility] [address] [id number] [place] [address]- 9846 Jun, [facility] [place] [facility] [address] [id number] [place] [address]- 3135 Jun, [facility] [place] [facility] [address] [id number] [place] [address]- 3837 May, [facility] [place] [facility] [address] [id number] [place] [address]- 0445 May, [facility] [place] [facility] [address] [id number] [place] [address]- 7107 May, [facility] [place] [facility] [address] [id number] [place] [address]- 3898 May, [facility] [place] [facility] [address] [id number] [place] [address]- 8392 Apr, [facility] [place] [facility] [address] [id number] [place] [address]- 8770 Apr, [facility] [place] [facility] [address] [id number] [place] [address]- 1162 15 Apr, 2013 [facility] [place] [facility] [address] [id number] [place] [address]- 9261 Apr, [facility] [place] [facility] [address] [id number] [place] [address]- 3061 Apr, [facility] [place] [facility] [address] [id number] [place] [address]- 8149 Apr, [facility] [place] [facility] [address] [id number] [place] [address]- 2949 Feb, [facility] [place] [facility] [address] [id number] [place] [address]- 1155 Feb, [facility] [place] [facility] [address] [id number] [place] [address]- 5545 Jan, [facility] [place] [facility] [address] [id number] [place] [address]- 4423 Jan, [facility] [place] [facility] [address] [id number] [place] [address]- 4937 Jan, [facility] [place] [facility] [address] [id number] [place] [address]- 2934 Jan, [facility] [place] [facility] [address] [id number] [place] [address]- 2604 Jan, [facility] [place] [facility] [address] [id number] [place] [address]- 8106 Jan, [facility] [place] [facility] [address] [id number] [place] [address]- 2584 Jan, [facility] [place] [facility] [address] [id number] [place] [address]- 3731 October, [facility] [place] [facility] [address] [id number] [place] [address]- 4362 Aug, [facility] [place] [facility] [address] [id number] [place] [address]- 4420 Jun, [facility] [place] [facility] [address] [id number] [place] [address]- 1176 Apr, [facility] [place] [facility] [address] [id number] [place] [address]- 4383 07 Apr, 2012 [facility] [address] [id number] [place] [address]- 6853 Mar, [facility] [place] [facility] [address] [id number] [place] [address]- 9714 Mar, [facility] [address] [id number] [place] [address]- 4337 Nov, [facility] [place] [facility] [address] [id number] [place] [address]- 5726 Aug, [facility] [address] [id number] [place] [address], [place] [address]- 5247 Jun, [facility] [place] [facility] [address] [id number] [place] [address]- 6185 Apr, [facility] [address] [id number] [place] [address]- 2809 Apr, [facility] [address] [id number] [place] [address]- 8640 Mar, [facility] [place] [facility] [address] [id number] [place] [address]- 5578 Nov, [facility] [address] [facility] [id number] [place] [address]- 9365 14 Jul, 2010 [facility] [place] [facility] [address] [id number] [place] [address]- 9671 14 May, 2010 [facility] [place] [facility] [address] [id number] [place] [address]- 6317 May, [facility] [place] [facility] [address] [id number] [place] [address]13 30 Apr, 2010 [facility] [place] [facility] [address] [id number] [place] [address]- 9207 Mar, [facility] [place] [facility] [address] [id number] [place] [address]- 7129 Mar, [facility] [address] [facility] [id number] [address] [address] [facility] [address] [facility] [id number] [address] [address] [facility] [address] [facility] [id number] [address] [address], [address] [facility] [address] [facility] [id number], [place] [address]- 4[address] Dec, [facility] [address] [facility] [id number], [place] [address]- [address]137 [address], [address] [facility] [address] [facility] [id number], [place] [address]- [address], [address] [facility] [id number] [address]- 7925 May, [facility] [id number] [address] Apr, [facility] [id number] [address] Apr, [facility] [address] [id number] [address]- [address] Apr, [facility] [address] [id number], [place] [address]- 7555 Nov, IMMUNIZATIONS No Known Immunizations SOCIAL HISTORY Never Assessed REASON FOR VISIT med denied PLAN OF CARE VITAL SIGNS MEDICATIONS Unknown Medications RESULTS No Results PROCEDURES No Known procedures INSTRUCTIONS MEDICATIONS ADMINISTERED No Known Medications MEDICAL (GENERAL) HISTORY Type Description Date Medical History depression Medical History migraine Surgical History left knee scope x 2 Surgical History tonsils and adenoid Surgical History tube ears Surgical History wisdom teeth removal
--- OUTSIDE RECORDS SUMMARY | 2017-12-13 17:48 | XMS REPORT | Continuity of Care Document ---
Author Author [facility] Address Unknown Phone Unavailable Allergies Active Description Code Type Severity Reaction Onset Reported/Identified Relationship to Patient Clinical Status Yes No Known Drug Allergies [id number] Drug Allergy Unknown N/A 12/11/2009 Medications There is no data. Problems Date Dx Coded Attending Type Code Diagnosis Diagnosed By 01/15/2008 461.9 Sinusitis Acute 01/15/2008 461.9 Sinusitis Acute 01/15/2008 461.9 Sinusitis Acute 01/15/2008 461.9 Sinusitis Acute 01/15/2008 461.9 Sinusitis Acute 01/15/2008 461.9 Sinusitis Acute 01/15/2008 461.9 Sinusitis Acute 01/15/2008 ZORAN MENON MD 461.9 Sinusitis Acute [facility] 461.9 [facility]us[facility] Acute [facility] 461.9 Sinusitis Acute 01/15/2008 ANGELIA MOREL MD 461.9 Sinusitis Acute 01/15/2008 [facility] A 461.9 [facility]usitis [facility] 461.9 [facility] 461.9 Sinusitis Acute 01/15/2008 KELLIE MCNEILL DO 461.9 Sinusitis Acute 01/15/2008 [facility] A 461.9 Sinusitis Acute 01/15/2008 [facility] A 461.9 Sinusitis Acute 01/15/2008 [facility] 461.9 Sinusitis Acute 01/15/2008 YONATAN COTA, MAYRA Brannon 461.9 Sinusitis Acute 01/15/2008 [facility] 461.9 Sinusitis Acute 01/15/2008 [facility] 461.9 Sinusitis Acute [facility] 461.9 Sinusitis Acute [facility]/15/2008 [facility] 461.9 Sinusitis Acute 01/15/2008 MCNEILL KELLIE PRADO K 461.9 Sinusitis Acute 01/15/2008 MCNEILL DO, KELLIE K 461.9 Sinusitis Acute 01/15/2008 LAITH SENIOR INTERACTION DESIGNER, LAUREANO R 461.9 Sinusitis Acute 01/15/2008 LAITH SENIOR INTERACTION DESIGNER, LAUREANO R 461.9 Sinusitis Acute 01/15/2008 LAITH SENIOR INTERACTION DESIGNER, LAUREANO R 461.9 Sinusitis Acute 01/15/2008 QUOC SENIOR INTERACTION DESIGNER KATHRYN T 461.9 Sinusitis Acute 01/15/2008 LAITH SENIOR INTERACTION DESIGNER, LAUREANO R 461.9 Sinusitis Acute 01/15/2008 LAITH SENIOR INTERACTION DESIGNER, LAUREANO R 461.9 Sinusitis Acute 01/15/2008 LAITH SENIOR INTERACTION DESIGNER, LAUREANO R 461.9 Sinusitis Acute 01/15/2008 MCNEILL DO, KELLIE K 461.9 Sinusitis Acute 01/15/2008 MCNEILL DO, KELLIE K 461.9 Sinusitis Acute 02/17/2008 382.00 Otitis Media Acute Without Spontaneous Rupture Eardrum 02/17/2008 684 Impetigo 02/17/2008 382.00 Otitis Media Acute Without Spontaneous Rupture Eardrum 02/17/2008 684 Impetigo 02/17/2008 382.00 Otitis Media Acute Without Spontaneous Rupture Eardrum 02/17/2008 684 Impetigo 02/17/2008 382.00 Otitis Media Acute Without Spontaneous Rupture Eardrum 02/17/2008 684 Impetigo 02/17/2008 382.00 Otitis Media Acute Without Spontaneous Rupture Eardrum 02/17/2008 684 Impetigo 02/17/2008 382.00 Otitis Media Acute Without Spontaneous Rupture Eardrum 02/17/2008 684 Impetigo 02/17/2008 382.00 Otitis Media Acute Without Spontaneous Rupture Eardrum 02/17/2008 684 Impetigo 02/17/2008 ZORAN MENON MD 382.00 Otitis Media Acute Without Spontaneous Rupture Eardrum 02/17/2008 ZORAN MENON MD 684 Impetigo 02/17/2008 [facility] 382.00 Otitis Media Acute Without Spontaneous Rupture Eardrum 02/17/2008 [facility] Impet[facility] 02/17/2008 [facility] A 382.00 Otitis Media Acute Without Spontaneous Rupture Eardrum 02/17/2008 [facility] 684 Impetigo 02/17/2008 MAR[facility] TERESA DOSHI, ANGELIA 382.00 Otitis Media Acute Without Spontaneous Rupture Eardrum 02/17/2008 MARIA TERESA DOSHI, ANGELIA 684 Impetigo 02/17/2008 [facility] A 382.00 Otitis Media Acute Without Spontaneous Rupture Eardrum 02/17/2008 [facility] 684 Impetigo 02/17/2008 [facility] A 382.00 Otitis Media Acute Without Spontaneous Rupture Eardrum 02/17/2008 [facility] 684 Impetigo 02/17/2008 [facility] A 382.00 Otitis Media Acute Without Spontaneous Rupture Eardrum 02/17/2008 [facility] 684 Impetigo 02/17/2008 MCNEILL DO, KELLIE K 382.00 Otitis Media Acute Without Spontaneous Rupture Eardrum 02/17/2008 MCNEILL DO, KELLIE K 684 Impetigo 02/17/2008 [facility] A 382.00 Otitis Media Acute Without Spontaneous Rupture Eardrum 02/17/2008 [facility] 684 Impetigo 02/17/2008 [facility] A 382.00 Otitis Media Acute Without Spontaneous Rupture Eardrum 02/17/2008 [facility] 684 Impetigo 02/17/2008 [facility] A 382.00 Otitis Media Acute Without Spontaneous Rupture Eardrum 02/17/2008 [facility] 684 Impetigo 02/17/2008 MAYRA TAM PHD 382.00 Otitis Media Acute Without Spontaneous Rupture Eardrum 02/17/2008 MAYRA TAM PHD 684 Impetigo 02/17/2008 [facility] A 382.00 Otitis Media Acute Without Spontaneous Rupture Eardrum 02/17/2008 [facility] 684 Impetigo 02/17/2008 [facility] A 382.00 Otitis Media Acute Without Spontaneous Rupture Eardrum 02/17/2008 [facility] 684 Impetigo 02/17/2008 [facility] A 382.00 Otitis Media Acute Without Spontaneous Rupture Eardrum 02/17/2008 [facility] 684 Impetigo 02/17/2008 [facility] A 382.00 Otitis Media Acute Without Spontaneous Rupture Eardrum 02/17/2008 [facility] A 684 Impetigo 02/17/2008 MCNEILL DO, KELLIE K 382.00 Otitis Media Acute Without Spontaneous Rupture Eardrum 02/17/2008 MCNEILL DO, KELLIE K 684 Impetigo 02/17/2008 MCNEILL DO, KELLIE K 382.00 Otitis Media Acute Without Spontaneous Rupture Eardrum 02/17/2008 MCNEILL DO, KELLIE K 684 Impetigo 02/17/2008 LAITH SENIOR INTERACTION DESIGNER, LAUREANO R 382.00 Otitis Media Acute Without Spontaneous Rupture Eardrum 02/17/2008 LAITH SENIOR INTERACTION DESIGNER, LAUREANO R 684 Impetigo 02/17/2008 LAITH SENIOR INTERACTION DESIGNER, LAUREANO R 382.00 Otitis Media Acute Without Spontaneous Rupture Eardrum 02/17/2008 LAITH SENIOR INTERACTION DESIGNER, LAUREANO R 684 Impetigo 02/17/2008 LAITH SENIOR INTERACTION DESIGNER, LAUREANO R 382.00 Otitis Media Acute Without Spontaneous Rupture Eardrum 02/17/2008 LAITH SENIOR INTERACTION DESIGNER, LAUREANO R 684 Impetigo 02/17/2008 QUOC MENDOZA KATHRYN T 382.00 Otitis Media Acute Without Spontaneous Rupture Eardrum 02/17/2008 QUOC SENIOR INTERACTION DESIGNER, KATHRYN T 684 Impetigo 02/17/2008 LAITH SENIOR INTERACTION DESIGNER, LAUREANO R 382.00 Otitis Media Acute Without Spontaneous Rupture Eardrum 02/17/2008 ALITH SENIOR INTERACTION DESIGNER, LAUREANO R 684 Impetigo 02/17/2008 LAITH SENIOR INTERACTION DESIGNER, LAUREANO R 382.00 Otitis Media Acute Without Spontaneous Rupture Eardrum 02/17/2008 LAITH SENIOR INTERACTION DESIGNER, LAUREANO R 684 Impetigo 02/17/2008 LAITH SENIOR INTERACTION DESIGNER, LAUREANO R 382.00 Otitis Media Acute Without Spontaneous Rupture Eardrum 02/17/2008 LAITH SENIOR INTERACTION DESIGNER, LAUREANO R 684 Impetigo 02/17/2008 MCNEILL DO, KELLIE K 382.00 Otitis Media Acute Without Spontaneous Rupture Eardrum 02/17/2008 MCNEILL DO, KELLIE K 684 Impetigo 02/17/2008 MCNEILL DO, KELLIE K 382.00 Otitis Media Acute Without Spontaneous Rupture Eardrum 02/17/2008 KELLIE MCNEILL DO 684 Impetigo 03/27/2008 V03.89 Meningococcal , Other Specified Single Bacterial Disease 03/27/2008 V05.8 Gardasil, Shingles, Other Specified Disease 03/27/2008 V03.89 Meningococcal , Other Specified Single Bacterial Disease 03/27/2008 V05.8 Gardasil, Shingles, Other Specified Disease 03/27/2008 V03.89 Meningococcal , Other Specified Single Bacterial Disease 03/27/2008 V05.8 Gardasil, Shingles, Other Specified Disease 03/27/2008 V03.89 Meningococcal , Other Specified Single Bacterial Disease 03/27/2008 V05.8 Gardasil, Shingles, Other Specified Disease 03/27/2008 V03.89 Meningococcal , Other Specified Single Bacterial Disease 03/27/2008 V05.8 Gardasil, Shingles, Other Specified Disease 03/27/2008 V03.89 Meningococcal , Other Specified Single Bacterial Disease 03/27/2008 V05.8 Gardasil, Shingles, Other Specified Disease 03/27/2008 V03.89 Meningococcal , Other Specified Single Bacterial Disease 03/27/2008 V05.8 Gardasil, Shingles, Other Specified Disease 03/27/2008 ZORAN MENON MD V03.89 Meningococcal, Other Specified Single Bacterial Disease 03/27/2008 ZORAN MENON MD V05.8 Gardasil, Shingles, Other Specified Disease 03/27/2008 [facility] Rodriguez V03.89 Meningococcal, Other Specified Single Bacterial Disease 03/27/2008 [facility] A V05.8 Gardasil, Shingles, Other Specified Disease 03/27/2008 [facility] A V03.89 Meningococcal, Other Specified Single Bacterial Disease 03/27/2008 [facility] Rodriguez V05.8 Gardasil, Shingles, Other Specified Disease 03/27/2008 [facility] DOSHI, ANGELIA V03.89 Meningococcal, Other Specified Single Bacterial Disease 03/27/2008 MARIA TERESA DOSHI, ANGELIA V05.8 Gardasil, Shingles, Other Specified Disease 03/27/2008 [facility] Rodriguez V03.89 Meningococcal, Other Specified Single Bacterial Disease 03/27/2008 [facility] Rodriguez V05.8 Gardasil, Shingles, Other Specified Disease 03/27/2008 [facility] Rodriguez V03.89 Meningococcal, Other Specified Single Bacterial Disease 03/27/2008 [facility] Rodriguez V05.8 Gardasil, Shingles, Other Specified Disease 03/27/2008 [facility] Rodriguez V03.89 Meningococcal, Other Specified Single Bacterial Disease 03/27/2008 [facility] Rodriguez V05.8 Gardasil, Shingles, Other Specified Disease 03/27/2008 KELLIE MCNEILL DO V03.89 Meningococcal, Other Specified Single Bacterial Disease 03/27/2008 MCNEILL DOKELLIE V05.8 Gardasil, Shingles, Other Specified Disease 03/27/2008 [facility] Rodriguez V03.89 Meningococcal, Other Specified Single Bacterial Disease 03/27/2008 [facility] Rodriguez V05.8 Gardasil, Shingles, Other Specified Disease 03/27/2008 [facility] Rodriguez V03.89 Meningococcal, Other Specified Single Bacterial Disease 03/27/2008 [facility] Rodriguez V05.8 Gardasil, Shingles, Other Specified Disease 03/27/2008 [facility] Rodriguez V03.89 Meningococcal, Other Specified Single Bacterial Disease 03/27/2008 [facility] Rodriguez V05.8 Gardasil, Shingles, Other Specified Disease 03/27/2008 MAYRA TAM PHD V03.89 Meningococcal, Other Specified Single Bacterial Disease 03/27/2008 MAYRA TAM PHD V05.8 Gardasil, Shingles, Other Specified Disease 03/27/2008 [facility] Rodriguez V03.89 Meningococcal, Other Specified Single Bacterial Disease 03/27/2008 [facility] Rodriguez V05.8 Gardasil, Shingles, Other Specified Disease 03/27/2008 [facility] Rodriguez V03.89 Meningococcal, Other Specified Single Bacterial Disease 03/27/2008 [facility] Rodriguez V05.8 Gardasil, Shingles, Other Specified Disease 03/27/2008 [facility] Rodriguez V03.89 Meningococcal, Other Specified Single Bacterial Disease 03/27/2008 [facility] A V05.8 Gardasil, Shingles, Other Specified Disease 03/27/2008 [facility] A V03.89 Meningococcal, Other Specified Single Bacterial Disease 03/27/2008 [facility] A V05.8 Gardasil, Shingles, Other Specified Disease 03/27/2008 MCNEILL DO, KELLIE K V03.89 Meningococcal, Other Specified Single Bacterial Disease 03/27/2008 MCNEILL DO, KELLIE K V05.8 Gardasil, Shingles, Other Specified Disease 03/27/2008 MCNEILL DO, KELLIE K V03.89 Meningococcal, Other Specified Single Bacterial Disease 03/27/2008 MCNEILL DO, KELLIE K V05.8 Gardasil, Shingles, Other Specified Disease 03/27/2008 LAITH SENIOR INTERACTION DESIGNER, LAUREANO R V03.89 Meningococcal, Other Specified Single Bacterial Disease 03/27/2008 LAITH SENIOR INTERACTION DESIGNER, LAUREANO R V05.8 Gardasil, Shingles, Other Specified Disease 03/27/2008 LAITH SENIOR INTERACTION DESIGNER, LAUREANO R V03.89 Meningococcal, Other Specified Single Bacterial Disease 03/27/2008 LAITH SENIOR INTERACTION DESIGNER, LAUREANO R V05.8 Gardasil, Shingles, Other Specified Disease 03/27/2008 LAITH SENIOR INTERACTION DESIGNER, LAUREANO R V03.89 Meningococcal, Other Specified Single Bacterial Disease 03/27/2008 LAITH SENIOR INTERACTION DESIGNER, LAUREANO R V05.8 Gardasil, Shingles, Other Specified Disease 03/27/2008 KATHRYN KUMARI APRN V03.89 Meningococcal, Other Specified Single Bacterial Disease 03/27/2008 KATHRYN KUMARI APRN V05.8 Gardasil, Shingles, Other Specified Disease 03/27/2008 LAITH SENIOR INTERACTION DESIGNER, LAUREANO R V03.89 Meningococcal, Other Specified Single Bacterial Disease 03/27/2008 LAITH SENIOR INTERACTION DESIGNER, LAUREANO R V05.8 Gardasil, Shingles, Other Specified Disease 03/27/2008 LAITH SENIOR INTERACTION DESIGNER, LAUREANO R V03.89 Meningococcal, Other Specified Single Bacterial Disease 03/27/2008 LAITH SENIOR INTERACTION DESIGNER, LAUREANO R V05.8 Gardasil, Shingles, Other Specified Disease 03/27/2008 LAITH SENIOR INTERACTION DESIGNER, LAUREANO R V03.89 Meningococcal, Other Specified Single Bacterial Disease 03/27/2008 LAITH SENIOR INTERACTION DESIGNER, LAUREANO R V05.8 Gardasil, Shingles, Other Specified Disease 03/27/2008 KELLIE MCNEILL DO K V03.89 Meningococcal, Other Specified Single Bacterial Disease 03/27/2008 LOUISE MCNEILL DOA K V05.8 Gardasil, Shingles, Other Specified Disease 03/27/2008 OSITO PRADO KELLIE K V03.89 Meningococcal, Other Specified Single Bacterial Disease 03/27/2008 OSITO PRADO, KELLIE K V05.8 Gardasil, Shingles, Other Specified Disease 03/30/2008 477.9 ALLERGIC RHINITIS 03/30/2008 845.00 Sprain/ strain Ankle 03/30/2008 477.9 ALLERGIC RHINITIS 03/30/2008 845.00 Sprain/ strain Ankle 03/30/2008 477.9 ALLERGIC RHINITIS 03/30/2008 845.00 Sprain/ strain Ankle 03/30/2008 477.9 ALLERGIC RHINITIS 03/30/2008 845.00 Sprain/ strain Ankle 03/30/2008 477.9 ALLERGIC RHINITIS 03/30/2008 845.00 Sprain/ strain Ankle 03/30/2008 477.9 ALLERGIC RHINITIS 03/30/2008 845.00 Sprain/ strain Ankle 03/30/2008 477.9 ALLERGIC RHINITIS 03/30/2008 845.00 Sprain/ strain Ankle 03/30/2008 ZORAN MENON MD 477.9 ALLERGIC RHINITIS 03/30/2008 ZORAN MENON MD 845.00 Sprain/strain Ankle [facility]/30/[facility] 477.9 ALLERGIC RHINITIS 03/30/2008 [facility] A 845.00 Sprain/strain Ankle 03/30/2008 [facility] 477.9 ALLERGIC RHINITIS 03/30/2008 [facility] 845.00 Sprain/strain Ankle 03/30/2008 ANGELIA MOREL MD 477.9 ALLERGIC RHINITIS 03/30/2008 ANGELIA MOREL MD 845.00 Sprain/strain Ankle 03/30/2008 [facility] A 477.9 ALLERGIC RHINITIS 03/30/2008 [facility] 845.00 Sprain/strain Ankle 03/30/2008 [facility] 477.9 ALLERGIC RHINITIS 03/30/2008 [facility] A 845.00 Sprain/strain Ankle 03/30/2008 [facility] A 477.9 ALLERGIC RHINITIS 03/30/2008 [facility] A 845.00 Sprain/strain Ankle 03/30/2008 MCNEILL DO, KELLIE K 477.9 ALLERGIC RHINITIS 03/30/2008 MCNEILL DO, KELLIE K 845.00 Sprain/strain Ankle 03/30/2008 [facility] 477.9 ALLERGIC RHINITIS 03/30/2008 [facility] 845.00 Sprain/strain Ankle 03/30/2008 [facility] 477.9 ALLERGIC RHINITIS 03/30/2008 [facility] A 845.00 Sprain/strain Ankle 03/30/2008 [facility] A 477.9 ALLERGIC RHINITIS 03/30/2008 [facility] 845.00 Sprain/strain Ankle 03/30/2008 YONATAN COTA, MAYRA Brannon 477.9 ALLERGIC RHINITIS 03/30/2008 MAYRA TAM PHD 845.00 Sprain/strain Ankle 03/30/2008 [facility] A 477.9 ALLERGIC RHINITIS 03/30/2008 [facility] 845.00 Sprain/strain Ankle 03/30/2008 [facility] 477.9 ALLERGIC RHINITIS 03/30/2008 [facility] A 845.00 Sprain/strain Ankle 03/30/2008 [facility] 477.9 ALLERGIC RHINITIS 03/30/2008 [facility] A 845.00 Sprain/strain Ankle 03/30/2008 [facility] 477.9 ALLERGIC RHINITIS 03/30/2008 [facility] 845.00 Sprain/strain Ankle 03/30/2008 MCNEILL DO, KELLIE K 477.9 ALLERGIC RHINITIS 03/30/2008 MCNEILL DO, KELILE K 845.00 Sprain/strain Ankle 03/30/2008 MCNEILL DO, KELLIE K 477.9 ALLERGIC RHINITIS 03/30/2008 MCNEILL DO, KELLIE K 845.00 Sprain/strain Ankle 03/30/2008 LAITH SENIOR INTERACTION DESIGNER, LAUREANO R 477.9 ALLERGIC RHINITIS 03/30/2008 LAITH SENIOR INTERACTION DESIGNER, LAUREANO R 845.00 Sprain/strain Ankle 03/30/2008 LAITH SENIOR INTERACTION DESIGNER, LAUREANO R 477.9 ALLERGIC RHINITIS 03/30/2008 LAITH SENIOR INTERACTION DESIGNER, LAUREANO R 845.00 Sprain/strain Ankle 03/30/2008 LAITH SENIOR INTERACTION DESIGNER, LAUREANO R 477.9 ALLERGIC RHINITIS 03/30/2008 LAITH SENIOR INTERACTION DESIGNER, LAUREANO R 845.00 Sprain/strain Ankle 03/30/2008 QUOC SENIOR INTERACTION DESIGNER, KATHRYN T 477.9 ALLERGIC RHINITIS 03/30/2008 QUOC SENIOR INTERACTION DESIGNER, KATHRYN T 845.00 Sprain/strain Ankle 03/30/2008 LAITH SENIOR INTERACTION DESIGNER, LAUREANO R 477.9 ALLERGIC RHINITIS 03/30/2008 LAITH SENIOR INTERACTION DESIGNER, LAUREANO R 845.00 Sprain/strain Ankle 03/30/2008 LAITH SENIOR INTERACTION DESIGNER, LAUREANO R 477.9 ALLERGIC RHINITIS 03/30/2008 LAITH SENIOR INTERACTION DESIGNER, LAUREANO R 845.00 Sprain/strain Ankle 03/30/2008 LAITH SENIOR INTERACTION DESIGNER, LAUREANO R 477.9 ALLERGIC RHINITIS 03/30/2008 LAITH SENIOR INTERACTION DESIGNER, LAUREANO R 845.00 Sprain/strain Ankle 03/30/2008 MCNEILL DO, KELLIE K 477.9 ALLERGIC RHINITIS 03/30/2008 MCNEILL DO, KELLIE K 845.00 Sprain/strain Ankle 03/30/2008 MCNEILL DO, KELLIE K 477.9 ALLERGIC RHINITIS 03/30/2008 MCNEILL DO, KELLIE K 845.00 Sprain/strain Ankle 08/03/2008 300.00 An Anxiety Unspec 08/03/2008 530.81 Esophageal Reflux 08/03/2008 300.00 An Anxiety Unspec 08/03/2008 530.81 Esophageal Reflux 08/03/2008 300.00 An Anxiety Unspec 08/03/2008 530.81 Esophageal Reflux 08/03/2008 300.00 An Anxiety Unspec 08/03/2008 530.81 Esophageal Reflux 08/03/2008 300.00 An Anxiety Unspec 08/03/2008 530.81 Esophageal Reflux 08/03/2008 300.00 An Anxiety Unspec 08/03/2008 530.81 Esophageal Reflux 08/03/2008 300.00 An Anxiety Unspec 08/03/2008 530.81 Esophageal Reflux 08/03/2008 ZORAN MENON MD 300.00 An Anxiety Unspec 08/03/2008 LYNSEY DOSHI, ZORAN 530.81 Esophageal Reflux 08/03/2008 [facility] 300.00 An Anxiety Unspec 08/03/2008 [facility] A 530.81 Esophageal Reflux 08/03/2008 [facility] A 300.00 An Anxiety Unspec 08/03/2008 [facility] A 530.81 Esophageal Reflux 08/03/2008 ANGELIA MOREL MD 300.00 An Anxiety Unspec 08/03/2008 MARIA TERESA DOSHI, ANGELIA 530.81 Esophageal Reflux 08/03/2008 [facility] A 300.00 An Anxiety Unspec 08/03/2008 [facility] A 530.81 Esophageal Reflux 08/03/2008 [facility] A 300.00 An Anxiety Unspec 08/03/2008 [facility] A 530.81 Esophageal Reflux 08/03/2008 [facility] A 300.00 An Anxiety Unspec 08/03/2008 [facility] A 530.81 Esophageal Reflux 08/03/2008 MCNEILL DO, KELLIE K 300.00 An Anxiety Unspec 08/03/2008 MCNEILL DO, KELLIE K 530.81 Esophageal Reflux 08/03/2008 [facility] A 300.00 An Anxiety Unspec 08/03/2008 [facility] A 530.81 Esophageal Reflux 08/03/2008 [facility] A 300.00 An Anxiety Unspec 08/03/2008 [facility] A 530.81 Esophageal Reflux 08/03/2008 [facility] A 300.00 An Anxiety Unspec 08/03/2008 [facility] A 530.81 Esophageal Reflux 08/03/2008 MAYRA TAM PHD 300.00 An Anxiety Unspec 08/03/2008 AMYRA TAM PHD 530.81 Esophageal Reflux 08/03/2008 [facility] A 300.00 An Anxiety Unspec 08/03/2008 [facility] A 530.81 Esophageal Reflux 08/03/2008 [facility] A 300.00 An Anxiety Unspec 08/03/2008 [facility] A 530.81 Esophageal Reflux 08/03/2008 [facility] A 300.00 An Anxiety Unspec 08/03/2008 [facility] A 530.81 Esophageal Reflux 08/03/2008 [facility] A 300.00 An Anxiety Unspec 08/03/2008 [facility] A 530.81 Esophageal Reflux 08/03/2008 OSITO DO, KELLIE K 300.00 An Anxiety Unspec 08/03/2008 MCNEILL DO, KELLIE K 530.81 Esophageal Reflux 08/03/2008 MCNEILL DO, KELLIE K 300.00 An Anxiety Unspec 08/03/2008 MCNEILL DO, KELLIE K 530.81 Esophageal Reflux 08/03/2008 LAITH SENIOR INTERACTION DESIGNER LAUREANO R 300.00 An Anxiety Unspec 08/03/2008 LAITH SENIOR INTERACTION DESIGNER LAUREANO R 530.81 Esophageal Reflux 08/03/2008 LAITH SENIOR INTERACTION DESIGNER LAUREANO R 300.00 An Anxiety Unspec 08/03/2008 LAITH SENIOR INTERACTION DESIGNER LAUREANO R 530.81 Esophageal Reflux 08/03/2008 LAITH SENIOR INTERACTION DESIGNER LAUREANO R 300.00 An Anxiety Unspec 08/03/2008 LAITH MENDOZA LAUREANO R 530.81 Esophageal Reflux 08/03/2008 KATHRYN KUMARI APRN T 300.00 An Anxiety Unspec 08/03/2008 QUOC MENDOZA KATHRYN T 530.81 Esophageal Reflux 08/03/2008 LAITH SENIOR INTERACTION DESIGNER, LAUREANO R 300.00 An Anxiety Unspec 08/03/2008 LAITH PATELN LAUREANO R 530.81 Esophageal Reflux 08/03/2008 LAITH MENDOZA LAUREANO R 300.00 An Anxiety Unspec 08/03/2008 LAITH SENIOR INTERACTION DESIGNER LAUREANO R 530.81 Esophageal Reflux 08/03/2008 LAITH MENDOZA LAUREANO R 300.00 An Anxiety Unspec 08/03/2008 LAITH MENDOZA LAUREANO R 530.81 Esophageal Reflux 08/03/2008 OSITO PRADO, KELLIE K 300.00 An Anxiety Unspec 08/03/2008 MCNEILL DO, KELLIE K 530.81 Esophageal Reflux 08/03/2008 MCNEILL DO, KELLIE K 300.00 An Anxiety Unspec 08/03/2008 MCNEILL DO, KELLIE K 530.81 Esophageal Reflux 08/28/2008 311 Mo Depressive Disorder Nos 08/28/2008 311 Mo Depressive Disorder Nos 08/28/2008 311 Mo Depressive Disorder Nos 08/28/2008 311 Mo Depressive Disorder Nos 08/28/2008 311 Mo Depressive Disorder Nos 08/28/2008 311 Mo Depressive Disorder Nos 08/28/2008 311 Mo Depressive Disorder Nos 08/28/2008 ZORAN MENON MD 311 Mo Depressive Disorder Nos 08/28/2008 [facility] 311 Mo Depressive Disorder Nos 08/28/2008 [facility] 311 Mo Depressive Disorder Nos 08/28/2008 ANGELIA MOREL MD 311 Mo Depressive Disorder Nos 08/28/2008 [facility] 311 Mo Depressive Disorder Nos 08/28/2008 [facility] 311 Mo Depressive Disorder Nos 08/28/2008 [facility] 311 Mo Depressive Disorder Nos 08/28/2008 MCNEILL DO, KELLIE K 311 Mo Depressive Disorder Nos 08/28/2008 [facility] 311 Mo Depressive Disorder Nos 08/28/2008 [facility] 311 Mo Depressive Disorder Nos 08/28/2008 [facility] 311 Mo Depressive Disorder Nos 08/28/2008 YONATAN COTA, MYARA Brannon 311 Mo Depressive Disorder Nos 08/28/2008 [facility], ALEIDA A 311 Mo Depressive Disorder Nos 08/28/2008 [facility] 311 Mo Depressive Disorder Nos 08/28/2008 [facility] 311 Mo Depressive Disorder Nos 08/28/2008 [facility] 311 Mo Depressive Disorder Nos 08/28/2008 MCNEILL DO, KELLIE K 311 Mo Depressive Disorder Nos 08/28/2008 MCNEILL DO, KELLIE K 311 Mo Depressive Disorder Nos 08/28/2008 [employer] DES[employer]ER, LAUREANO R 311 Mo Depressive Disorder Nos 08/28/2008 LA[employer] S[employer]IOR INTERACTION DESIGNER, LAUREANO R 311 Mo Depressive Disorder Nos 08/28/2008 [employer]ACTION DESIGNER, LAUREANO R 311 Mo Depressive Disorder Nos 08/28/2008 KATHRYN KUMARI APRN 311 Mo Depressive Disorder Nos 08/28/2008 [employer] DES[employer]ER, LAUREANO R 311 Mo Depressive Disorder Nos 08/28/2008 [employer] S[employer]ACTION DESIGNER, LAUREANO R 311 Mo Depressive Disorder Nos 08/28/2008 [employer] S[employer] INTERACTION DESIGNER, LAUREANO R 311 Mo Depressive Disorder Nos 08/28/2008 MCNEILL DO, KELLIE K 311 Mo Depressive Disorder Nos 08/28/2008 MCNEILL DO, KELLIE K 311 Mo Depressive Disorder Nos 12/08/2008 V65.5 Feared Medical Condition Not Demonstrated 12/08/2008 V65.5 Feared Medical Condition Not Demonstrated 12/08/2008 V65.5 [facility] Medical Condition Not Demonstrated 12/08/2008 V65.5 Feared Medical Condition Not Demonstrated 12/08/2008 V65.5 Feared Medical Condition Not Demonstrated 12/08/2008 V65.5 Feared Medical Condition Not Demonstrated 12/08/2008 V65.5 Feared Medical Condition Not Demonstrated 12/08/2008 LYNSEY DOSHI, ZORAN V65.5 Feared Medical Condition Not Demonstrated 12/08/2008 [facility], [facility]LEIDA A V65.5 Feared Medical Condition Not Demonstrated 12/08/2008 [facility], [facility] A V65.5 Feared Medical Condition Not Demonstrated 12/08/2008 ANGELIA MOREL MD V65.5 Feared Medical Condition Not Demonstrated 12/08/2008 [facility], [facility]LE[facility] A V65.5 Feared Medical Condition Not Demonstrated 12/08/2008 [facility], [facility] A V65.5 Feared Medical Condition Not Demonstrated 12/08/2008 [facility], [facility] A V65.5 Feared Medical Condition Not Demonstrated 12/08/2008 MCNEILL DO, KELLIE K V65.5 Feared Medical Condition Not Demonstrated 12/08/2008 [facility], [facility]LE[facility] A V65.5 [facility]ared Medical Condition Not Demonstrated 12/08/2008 [facility], [facility] A V65.5 [facility]ared Medical Condition Not Demonstrated 12/08/2008 [facility], [facility] A V65.5 [facility]ared Medical Condition Not Demonstrated 12/08/2008 YONATAN PHD, MAYRA Brannon V65.5 [facility] Medical Condition Not Demonstrated 12/08/2008 [facility], [facility] A V65.5 Feared Medical Condition Not Demonstrated 12/08/2008 [facility], [facility] A V65.5 [facility]ared Medical Condition Not Demonstrated 12/08/2008 [facility], [facility] A V65.5 [facility]ared Medical Condition Not Demonstrated 12/08/2008 [facility], [facility] A V65.5 [facility]ared Medical Condition Not Demonstrated 12/08/2008 MCNEILL DO, KELLIE K V65.5 [facility] Medical Condition Not Demonstrated 12/08/2008 MCNEILL DO, KELLIE K V65.5 [facility] Condition Not Demonstrated 12/08/2008 LAITH SENIOR INTERACTION DESIGNER, LAUREANO R V65.5 Feared Medical Condition Not Demonstrated 12/08/2008 LAITH SENIOR INTERACTION DESIGNER, LAUREANO R V65.5 [facility] Condition Not Demonstrated 12/08/2008 LAITH SENIOR INTERACTION DESIGNER, LAUREANO R V65.5 [facility] Condition Not Demonstrated 12/08/2008 KATHRYN KUMARI APRN T V65.5 [facility] Medical Condition Not Demonstrated 12/08/2008 LAUREANO OZUNA APRN R V65.5 [facility] Condition Not Demonstrated 12/08/2008 LAUREANO OZUNA APRN R V65.5 [facility] Medical Condition Not Demonstrated 12/08/2008 LAUREANO OZUNA APRN R V65.5 [facility] Medical Condition Not Demonstrated 12/08/2008 MCNEILL DO, KELLIE K V65.5 [facility] Medical Condition Not Demonstrated 12/08/2008 MCNEILL DO, KELLIE K V65.5 [facility]ared Medical Condition Not Demonstrated 01/16/2009 625.3 DYSMENORRHEA 01/16/2009 625.6 Female Stress Incontinence 01/16/2009 719.46 Joint Pain, Localized In The Knee 01/16/2009 V05.3 Hepatitis Viral/all 01/16/2009 V05.4 Varicella, Chickenpox 01/16/2009 V20.2 visit for: well child visit 01/16/2009 625.3 DYSMENORRHEA 01/16/2009 625.6 Female Stress Incontinence 01/16/2009 719.46 Joint Pain, Localized In The Knee 01/16/2009 V05.3 Hepatitis Viral/all 01/16/2009 V05.4 Varicella, Chickenpox 01/16/2009 V20.2 visit for: well child visit 01/16/2009 625.3 DYSMENORRHEA 01/16/2009 625.6 Female Stress Incontinence 01/16/2009 719.46 Joint Pain, Localized In The Knee 01/16/2009 V05.3 Hepatitis Viral/all 01/16/2009 V05.4 Varicella, Chickenpox 01/16/2009 V20.2 visit for: well child visit 01/16/2009 625.3 DYSMENORRHEA 01/16/2009 625.6 Female Stress Incontinence 01/16/2009 719.46 Joint Pain, Localized In The Knee 01/16/2009 V05.3 Hepatitis Viral/all 01/16/2009 V05.4 Varicella, Chickenpox 01/16/2009 V20.2 visit for: well child visit 01/16/2009 625.3 DYSMENORRHEA 01/16/2009 625.6 Female Stress Incontinence 01/16/2009 719.46 Joint Pain, Localized In The Knee 01/16/2009 V05.3 Hepatitis Viral/all 01/16/2009 V05.4 Varicella, Chickenpox 01/16/2009 V20.2 visit for: well child visit 01/16/2009 625.3 DYSMENORRHEA 01/16/2009 625.6 Female Stress Incontinence 01/16/2009 719.46 Joint Pain, Localized In The Knee 01/16/2009 V05.3 Hepatitis Viral/all 01/16/2009 V05.4 Varicella, Chickenpox 01/16/2009 V20.2 visit for: well child visit 01/16/2009 625.3 DYSMENORRHEA 01/16/2009 625.6 Female Stress Incontinence 01/16/2009 719.46 Joint Pain, Localized In The Knee 01/16/2009 V05.3 Hepatitis Viral/all 01/16/2009 V05.4 Varicella, Chickenpox 01/16/2009 V20.2 visit for: well child visit 01/16/2009 LYNSEY DOSHI, ZORAN 625.3 DYSMENORRHEA 01/16/2009 LYNSEY DOSHI, ZORAN 625.6 Female Stress Incontinence 01/16/2009 LYNSEY DOSHI, ZORAN 719.46 Joint Pain, Localized In The Knee 01/16/2009 LYNSEY DOSHI, ZORAN V05.3 Hepatitis Viral/all 01/16/2009 LYNSEY DOSHI, ZORAN V05.4 Varicella, Chickenpox 01/16/2009 LYNSEY DOSHI, ZORAN V20.2 visit for: well child visit 01/16/2009 [facility]IDA 625.3 DYSMENORRHEA [facility]/16/2009 [facility] In[facility]ence 01/16/2009 [facility]19.46 Joint Pain, Localized In The Knee 01/16/2009 [facility] A V05.3 Hepatitis Viral/all 01/16/2009 BRANDIE WALTERCSALEIDA A V05.4 Varicella, Chickenpox 01/16/2009 ALEIDA ROBLES A V20.2 visit for: well child visit 01/16/2009 BRANDIE LSCSALEIDA A 625.3 DYSMENORRHEA 01/16/2009 [facility] A 625.6 Female Stress Incontinence 01/16/2009 ALEIDA ROBLES A 719.46 Joint Pain, Localized In The Knee 01/16/2009 [facility] A V05.3 Hepatitis Viral/all 01/16/2009 [facility] A V05.4 Varicella, Chickenpox 01/16/2009 [facility], [facility] Rodriguez V20.2 visit for: well child visit 01/16/2009 MARIA TERESA DOSHI, ANGELIA 625.3 DYSMENORRHEA 01/16/2009 MARIA TERESA DOSHI, ANGELIA 625.6 Female Stress Incontinence 01/16/2009 MARIA TERESA DOSHI, ANGELIA 719.46 Joint Pain, Localized In The Knee 01/16/2009 MARIA TERESA DOSHI, ANGELIA V05.3 Hepatitis Viral/all 01/16/2009 MARIA TERESA DOSHI, ANGELIA V05.4 Varicella, Chickenpox 01/16/2009 MARIA TERESA DOSHI, ANGELIA V20.2 visit for: well child visit 01/16/2009 [facility], ALE[facility] Rodriguez 625.3 DYSMENORRHEA 01/16/2009 [facility] Rodriguez 625.6 Female Stress Incontinence [facility]/16/2009 [facility] 719.46 Joint Pain, Localized In The Knee 01/16/2009 [facility]LE[facility] Rodriguez V05.3 Hepatitis Viral/all 01/16/2009 [facility] Rodriguez V05.4 Varicella, Chickenpox 01/16/2009 [facility] Rodriguez V20.2 visit for: well child visit 01/16/2009 [facility], [facility] Rodriguez 625.3 DYSMENORRHEA 01/16/2009 [facility] Rodriguez 625.6 Female Stress Incontinence 01/16/2009 [facility], A[facility] A 719.46 Joint Pain, Localized In The Knee 01/16/2009 [facility] V05.3 Hepatitis Viral/all 01/16/2009 [facility], [facility] A V05.4 Varicella, Chickenpox 01/16/2009 [facility] A V20.2 visit for: well child visit 01/16/2009 [facility], ALEIDA A 625.3 DYSMENORRHEA 01/16/2009 [facility], [facility] A 625.6 Female Stress Incontinence 01/16/2009 [facility], A[facility] A 719.46 Joint Pain, Localized In The Knee 01/16/2009 [facility] V05.3 Hepatitis Viral/all 01/16/2009 [facility], [facility] A V05.4 Varicella, Chickenpox 01/16/2009 [facility] Rodriguez V20.2 visit for: well child visit 01/16/2009 MCNEILL DOKELLIE 625.3 DYSMENORRHEA 01/16/2009 MCNEILL DOLOUISEA K 625.6 Female Stress Incontinence 01/16/2009 MCNIELL DO, KELLIE K 719.46 Joint Pain, Localized In The Knee 01/16/2009 MCNEILL DOKELLIE V05.3 Hepatitis Viral/all 01/16/2009 MCNEILL DO, KELLIE K V05.4 Varicella, Chickenpox 01/16/2009 MCNEILL DOKELLIE K V20.2 visit for: well child visit 01/16/2009 [facility] Rodriguez 625.3 DYSMENORRHEA 01/16/2009 [facility], [facility] Rodriguez 625.6 Female Stress Incontinence 01/16/2009 [facility], [facility] Rodriguez 719.46 Joint Pain, Localized In The Knee 01/16/2009 [facility] V05.3 Hepatitis Viral/all 01/16/2009 [facility] Rodriguez V05.4 Varicella, Chickenpox 01/16/2009 [facility] V20.2 visit for: well child visit 01/16/2009 [facility] 625.3 DYSMENORRHEA 01/16/2009 [facility] 625.6 Female Stress Incontinence 01/16/2009 [facility] 719.46 Joint Pain, Localized In The Knee 01/16/2009 [facility] V05.3 Hepatitis Viral/all 01/16/2009 [facility] V05.4 Varicella, Chickenpox 01/16/2009 [facility] V20.2 visit for: well child visit 01/16/2009 [facility] 625.3 DYSMENORRHEA 01/16/2009 [facility], ALEIDA A 625.6 Female Stress Incontinence 01/16/2009 [facility], [facility] Rodriguez 719.46 Joint Pain, Localized In The Knee 01/16/2009 [facility] V05.3 Hepatitis Viral/all 01/16/2009 [facility], [facility] A V05.4 Varicella, Chickenpox 01/16/2009 [facility], [facility] A V20.2 visit for: well child visit 01/16/2009 YONATAN PHD, MAYRA Brannon 625.3 DYSMENORRHEA 01/16/2009 YONATAN COTA, MAYRA Brannon 625.6 Female Stress Incontinence 01/16/2009 YONATAN PHD, MAYRA Brannon 719.46 Joint Pain, Localized In The Knee 01/16/2009 YONATAN PHD, MAYRA Brannon V05.3 Hepatitis Viral/all 01/16/2009 YONATAN COTA, MAYRA Brannon V05.4 Varicella, Chickenpox 01/16/2009 YONATAN PHD, MAYRA Brannon V20.2 visit for: well child visit 01/16/2009 [facility] Rodriguez 625.3 DYSMENORRHEA 01/16/2009 [facility], ALEIDA A 625.6 Female Stress Incontinence 01/16/2009 [facility], ALEIDA A 719.46 Joint Pain, Localized In The Knee 01/16/2009 [facility], [facility] Rodriguez V05.3 Hepatitis Viral/all 01/16/2009 [facility], ALEIDA A V05.4 Varicella, Chickenpox 01/16/2009 [facility], ALEIDA A V20.2 visit for: well child visit 01/16/2009 [facility] LSCSALEIDA A 625.3 DYSMENORRHEA 01/16/2009 [facility], ALEIDA A 625.6 Female Stress Incontinence 01/16/2009 [facility], ALEIDA A 719.46 Joint Pain, Localized In The Knee 01/16/2009 [facility], [facility] Rodriguez V05.3 Hepatitis Viral/all 01/16/2009 [facility], [facility] A V05.4 Varicella, Chickenpox 01/16/2009 [facility], [facility] A V20.2 visit for: well child visit 01/16/2009 [facility] LSC[facility]ALEIDA 625.3 DYSMENORRHEA 01/16/2009 [facility], ALEIDA A 625.6 Female Stress Incontinence 01/16/2009 [facility], ALEIDA A 719.46 Joint Pain, Localized In The Knee 01/16/2009 [facility], [facility] A V05.3 Hepatitis Viral/all 01/16/2009 [facility], [facility] A V05.4 Varicella, Chickenpox 01/16/2009 [facility], [facility] A V20.2 visit for: well child visit 01/16/2009 [facility], ALE[facility] A 625.3 DYSMENORRHEA 01/16/2009 [facility], ALE[facility] A 625.6 Female Stress Incontinence 01/16/2009 [facility] 719.46 Joint Pain, Localized In The Knee 01/16/2009 [facility], [facility] A V05.3 Hepatitis Viral/all 01/16/2009 [facility], [facility] A V05.4 Varicella, Chickenpox 01/16/2009 [facility], [facility] A V20.2 visit for: well child visit 01/16/2009 LOUISE MCNEILL DOA K 625.3 DYSMENORRHEA 01/16/2009 MCNEILL DO KELLIE K 625.6 Female Stress Incontinence 01/16/2009 MCNEILL DO, KELLIE K 719.46 Joint Pain, Localized In The Knee 01/16/2009 OSITO PRADO KELLIE K V05.3 Hepatitis Viral/all 01/16/2009 MCNEILL DO KELLIE K V05.4 Varicella, Chickenpox 01/16/2009 MCNEILL DO KELLIE K V20.2 visit for: well child visit 01/16/2009 LOUISE MCNEILL DOA K 625.3 DYSMENORRHEA 01/16/2009 OSITO PRADO KELLIE K 625.6 Female Stress Incontinence 01/16/2009 MCNEILL DO KELLIE K 719.46 Joint Pain, Localized In The Knee 01/16/2009 OSITO PRADO KELLIE K V05.3 Hepatitis Viral/all 01/16/2009 OSITO PRADO KELLIE K V05.4 Varicella, Chickenpox 01/16/2009 MCNEILL DO KELLIE K V20.2 visit for: well child visit 01/16/2009 LAITH SENIOR INTERACTION DESIGNER, LAUREANO R 625.3 DYSMENORRHEA 01/16/2009 LAITH SENIOR INTERACTION DESIGNER, LAUREANO R 625.6 Female Stress Incontinence 01/16/2009 LAITH SENIOR INTERACTION DESIGNER, LAUREANO R 719.46 Joint Pain, Localized In The Knee 01/16/2009 LAITH SENIOR INTERACTION DESIGNER, LAUREANO R V05.3 Hepatitis Viral/all 01/16/2009 LAITH SENIOR INTERACTION DESIGNER, LAUREANO R V05.4 Varicella, Chickenpox 01/16/2009 LAITH SENIOR INTERACTION DESIGNER, LAUREANO R V20.2 visit for: well child visit 01/16/2009 LAITH SENIOR INTERACTION DESIGNER, LAUREANO R 625.3 DYSMENORRHEA 01/16/2009 LAITH SENIOR INTERACTION DESIGNER, LAUREANO R 625.6 Female Stress Incontinence 01/16/2009 LAITH SENIOR INTERACTION DESIGNER, LAUREANO R 719.46 Joint Pain, Localized In The Knee 01/16/2009 LAITH SENIOR INTERACTION DESIGNER, LAUREANO R V05.3 Hepatitis Viral/all 01/16/2009 LAITH SENIOR INTERACTION DESIGNER, LAUREANO R V05.4 Varicella, Chickenpox 01/16/2009 LAITH SENIOR INTERACTION DESIGNER, LAUREANO R V20.2 visit for: well child visit 01/16/2009 LAITH SENIOR INTERACTION DESIGNER, LAUREANO R 625.3 DYSMENORRHEA 01/16/2009 LAITH SENIOR INTERACTION DESIGNER, LAUREANO R 625.6 Female Stress Incontinence 01/16/2009 LAITH SENIOR INTERACTION DESIGNER, LAUREANO R 719.46 Joint Pain, Localized In The Knee 01/16/2009 LAITH PATELN, LAUREANO R V05.3 Hepatitis Viral/all 01/16/2009 LAITH SENIOR INTERACTION DESIGNER, LAUREANO R V05.4 Varicella, Chickenpox 01/16/2009 LAITH SENIOR INTERACTION DESIGNER, LAUREANO R V20.2 visit for: well child visit 01/16/2009 KATHRYN KUMARI APRN 625.3 DYSMENORRHEA 01/16/2009 KATHRYN KUMARI APRN 625.6 Female Stress Incontinence 01/16/2009 KATHRYN KUMARI APRN 719.46 Joint Pain, Localized In The Knee 01/16/2009 KATHRYN KUMARI APRN V05.3 Hepatitis Viral/all 01/16/2009 KATHRYN KUMARI APRN V05.4 Varicella, Chickenpox 01/16/2009 KATHRYN KUMARI APRN V20.2 visit for: well child visit 01/16/2009 LAITH PATELN, LAUREANO R 625.3 DYSMENORRHEA 01/16/2009 LAITH SENIOR INTERACTION DESIGNER, LAUREANO R 625.6 Female Stress Incontinence 01/16/2009 LAITH SENIOR INTERACTION DESIGNER, LAUREANO R 719.46 Joint Pain, Localized In The Knee 01/16/2009 LAITH SENIOR INTERACTION DESIGNER, LAUREANO R V05.3 Hepatitis Viral/all 01/16/2009 LAITH SENIOR INTERACTION DESIGNER, LAUREANO R V05.4 Varicella, Chickenpox 01/16/2009 LAITH SENIOR INTERACTION DESIGNER, LAUREANO R V20.2 visit for: well child visit 01/16/2009 LAITH SENIOR INTERACTION DESIGNER, LAUREANO R 625.3 DYSMENORRHEA 01/16/2009 LAITH SENIOR INTERACTION DESIGNER, LAUREANO R 625.6 Female Stress Incontinence 01/16/2009 LAITH SENIOR INTERACTION DESIGNER, LAUREANO R 719.46 Joint Pain, Localized In The Knee 01/16/2009 LAITH SENIOR INTERACTION DESIGNER, LAUREANO R V05.3 Hepatitis Viral/all 01/16/2009 LAITH SENIOR INTERACTION DESIGNER, LAUREANO R V05.4 Varicella, Chickenpox 01/16/2009 LAITH SENIOR INTERACTION DESIGNER, LAUREANO R V20.2 visit for: well child visit 01/16/2009 LAITH SENIOR INTERACTION DESIGNER, LAUREANO R 625.3 DYSMENORRHEA 01/16/2009 LAITH SENIOR INTERACTION DESIGNER, LAUREANO R 625.6 Female Stress Incontinence 01/16/2009 LAITH SENIOR INTERACTION DESIGNER, LAUREANO R 719.46 Joint Pain, Localized In The Knee 01/16/2009 LAITH PATELN, LAUREANO R V05.3 Hepatitis Viral/all 01/16/2009 LAITH SENIOR INTERACTION DESIGNER, LAUREANO R V05.4 Varicella, Chickenpox 01/16/2009 LAITH SENIOR INTERACTION DESIGNER, LAUREANO R V20.2 visit for: well child visit 01/16/2009 OSITO PRADO KELLIE K 625.3 DYSMENORRHEA 01/16/2009 MCNEILL DO, KELLIE K 625.6 Female Stress Incontinence 01/16/2009 MCNEILL DO, KELLIE K 719.46 Joint Pain, Localized In The Knee 01/16/2009 MCNEILL DO KELLIE K V05.3 Hepatitis Viral/all 01/16/2009 MCNEILL DO KELLIE K V05.4 Varicella, Chickenpox 01/16/2009 MCNEILL DO KELLIE K V20.2 visit for: well child visit 01/16/2009 MCNEILL DO KELLIE K 625.3 DYSMENORRHEA 01/16/2009 MCNEILL DO, KELLIE K 625.6 Female Stress Incontinence 01/16/2009 MCNEILL DO, KELLIE K 719.46 Joint Pain, Localized In The Knee 01/16/2009 MCNEILL DO KELLIE K V05.3 Hepatitis Viral/all 01/16/2009 MCNEILL DO, KELLIE K V05.4 Varicella, Chickenpox 01/16/2009 MCNEILL DO, KELLIE K V20.2 visit for: well child visit 01/17/2009 626.9 Menstruation And Other Abnormal Bleeding From Female Genital Tract Unspecified 01/17/2009 626.9 Menstruation And Other Abnormal Bleeding From Female Genital Tract Unspecified 01/17/2009 626.9 Menstruation And Other Abnormal Bleeding From Female Genital Tract Unspecified 01/17/2009 626.9 Menstruation And Other Abnormal Bleeding From Female Genital Tract Unspecified 01/17/2009 626.9 Menstruation And Other Abnormal Bleeding From Female Genital Tract Unspecified 01/17/2009 626.9 Menstruation And Other Abnormal Bleeding From Female Genital Tract Unspecified 01/17/2009 626.9 Menstruation And Other Abnormal Bleeding From Female Genital Tract Unspecified 01/17/2009 ZORAN MENON MD 626.9 Menstruation And Other Abnormal Bleeding From Female Genital Tract Unspecified 01/17/2009 [facility], ALEIDA A 626.9 Menstruation And Other Abnormal Bleeding From Female Genital Tract Unspecified 01/17/2009 [facility], ALEIDA A 626.9 Menstruation And Other Abnormal Bleeding From Female Genital Tract Unspecified 01/17/2009 ANGELIA MOREL MD 626.9 Menstruation And Other Abnormal Bleeding From Female Genital Tract Unspecified 01/17/2009 [facility], ALEIDA A 626.9 Menstruation And Other Abnormal Bleeding From Female Genital Tract Unspecified 01/17/2009 [facility], ALEIDA A 626.9 Menstruation And Other Abnormal Bleeding From Female Genital Tract Unspecified 01/17/2009 [facility], ALEIDA A 626.9 Menstruation And Other Abnormal Bleeding From Female Genital Tract Unspecified 01/17/2009 OSITO PRADO, KELLIE Bowman 626.9 Menstruation And Other Abnormal Bleeding From Female Genital Tract Unspecified 01/17/2009 [facility], ALEIDA A 626.9 Menstruation And Other Abnormal Bleeding From Female Genital Tract Unspecified 01/17/2009 [facility], ALEIDA A 626.9 Menstruation And Other Abnormal Bleeding From Female Genital Tract Unspecified 01/17/2009 [facility], ALEIDA A 626.9 Menstruation And Other Abnormal Bleeding From Female Genital Tract Unspecified 01/17/2009 YONATAN COTA, MAYRA Brannon 626.9 Menstruation And Other Abnormal Bleeding From Female Genital Tract Unspecified 01/17/2009 [facility], ALEIDA A 626.9 Menstruation And Other Abnormal Bleeding From Female Genital Tract Unspecified 01/17/2009 [facility], ALEIDA A 626.9 Menstruation And Other Abnormal Bleeding From Female Genital Tract Unspecified 01/17/2009 [facility], [facility] A 626.9 Menstruation And Other Abnormal Bleeding From Female Genital Tract Unspecified 01/17/2009 [facility], [facility] A 626.9 Menstruation And Other Abnormal Bleeding From Female Genital Tract Unspecified 01/17/2009 MCNEILL DO, KELLIE K 626.9 Menstruation And Other Abnormal Bleeding From Female Genital Tract Unspecified 01/17/2009 MCNEILL DO, KELLIE K 626.9 Menstruation And Other Abnormal Bleeding From Female Genital Tract Unspecified 01/17/2009 LAITH SENIOR INTERACTION DESIGNER, LAUREANO R 626.9 Menstruation And Other Abnormal Bleeding From Female Genital Tract Unspecified 01/17/2009 LAITH SENIOR INTERACTION DESIGNER, LAUREANO R 626.9 Menstruation And Other Abnormal Bleeding From Female Genital Tract Unspecified 01/17/2009 LAITH SENIOR INTERACTION DESIGNER, LAUREANO R 626.9 Menstruation And Other Abnormal Bleeding From Female Genital Tract Unspecified 01/17/2009 QUOC PATELNKATHRYN 626.9 Menstruation And Other Abnormal Bleeding From Female Genital Tract Unspecified 01/17/2009 LAITH SENIOR INTERACTION DESIGNER, LAUREANO R 626.9 Menstruation And Other Abnormal Bleeding From Female Genital Tract Unspecified 01/17/2009 LAITH SENIOR INTERACTION DESIGNER, LAUREANO R 626.9 Menstruation And Other Abnormal Bleeding From Female Genital Tract Unspecified 01/17/2009 LAITH SENIOR INTERACTION DESIGNER, LAUREANO R 626.9 Menstruation And Other Abnormal Bleeding From Female Genital Tract Unspecified 01/17/2009 MCNEILL DO, KELLIE K 626.9 Menstruation And Other Abnormal Bleeding From Female Genital Tract Unspecified 01/17/2009 MCNEILL DO, KELLIE K 626.9 Menstruation And Other Abnormal Bleeding From Female Genital Tract Unspecified 02/02/2009 NODX No Diagnosis 02/02/2009 NODX No Diagnosis 02/02/2009 NODX No Diagnosis 02/02/2009 NODX No Diagnosis 02/02/2009 NODX No Diagnosis 02/02/2009 NODX No Diagnosis 02/02/2009 NODX No Diagnosis 02/02/2009 LYNSEY DOSHI, ZORAN NODX No Diagnosis 02/02/2009 [facility], [facility] Rodriguez NODX No Diagnosis 02/02/2009 [facility], [facility] Rodriguez NODX No Diagnosis 02/02/2009 ANGELIA MOREL MD NODX No Diagnosis 02/02/2009 [facility], [facility] A NODX No Diagnosis 02/02/2009 [facility], [facility] A NODX No Diagnosis 02/02/2009 [facility], [facility] A NODX No Diagnosis 02/02/2009 MCNEILL DO, KELLIE K NODX No Diagnosis 02/02/2009 [facility], [facility] A NODX No Diagnosis 02/02/2009 [facility], [facility] A NODX No Diagnosis 02/02/2009 [facility] A NODX No Diagnosis 02/02/2009 YONATAN PHD, MAYRA Brannon NODX No Diagnosis 02/02/2009 [facility], [facility] A NODX No Diagnosis 02/02/2009 [facility], [facility] A NODX No Diagnosis 02/02/2009 [facility], [facility] A NODX No Diagnosis 02/02/2009 [facility] A NODX No Diagnosis 02/02/2009 MCNEILL DO, KELLIE K NODX No Diagnosis 02/02/2009 MCNEILL DO, KELLIE K NODX No Diagnosis 02/02/2009 LAITH SENIOR INTERACTION DESIGNER, LAUREANO R NODX No Diagnosis 02/02/2009 LAITH SENIOR INTERACTION DESIGNER, LAUREANO R NODX No Diagnosis 02/02/2009 LAITH SENIOR INTERACTION DESIGNER, LAUREANO R NODX No Diagnosis 02/02/2009 QUOC SENIOR INTERACTION DESIGNER, KATHRYN T NODX No Diagnosis 02/02/2009 LAITH SENIOR INTERACTION DESIGNER, LAUREANO R NODX No Diagnosis 02/02/2009 LAITH SENIOR INTERACTION DESIGNER, LAUREANO R NODX No Diagnosis 02/02/2009 LAITH SENIOR INTERACTION DESIGNER, LAUREANO R NODX No Diagnosis 02/02/2009 MCNEILL DO, KELLIE K NODX No Diagnosis 02/02/2009 MCNEILL DO, KELLIE K NODX No Diagnosis 02/16/2009 717.7 Chondromalacia Of Patella 02/16/2009 717.7 Chondromalacia Of Patella 02/16/2009 717.7 Chondromalacia Of Patella 02/16/2009 717.7 Chondromalacia Of Patella 02/16/2009 717.7 Chondromalacia Of Patella 02/16/2009 717.7 Chondromalacia Of Patella 02/16/2009 717.7 Chondromalacia Of Patella 02/16/2009 LYNSEY DOSHI, ZORAN 717.7 Chondromalacia Of Patella 02/16/2009 [facility], [facility] Rodriguez 717.7 Chondromalacia Of Patella 02/16/2009 [facility], [facility] A 717.7 Chondromalacia Of Patella 02/16/2009 MAR[facility] TERESA DOSHI, ANGELIA 717.7 Chondromalacia Of Patella 02/16/2009 [facility], ALEIDA A 717.7 Chondromalacia Of Patella 02/16/2009 [facility], ALEIDA A 717.7 Chondromalacia Of Patella 02/16/2009 [facility], ALEIDA A 717.7 Chondromalacia Of Patella 02/16/2009 KELLIE MCNEILL DO K 717.7 Chondromalacia Of Patella 02/16/2009 [facility], ALEIDA A 717.7 Chondromalacia Of Patella 02/16/2009 [facility], ALEIDA A 717.7 Chondromalacia Of Patella [facility]/16/2009 [facility] 717.7 Chondromalacia Of Pat[place] 02/16/2009 YONATAN COTA, MAYRA Brannon 717.7 Chondromalacia Of [place] 02/16/2009 [facility] A 717.7 Chondromalacia Of [place] 02/16/2009 [facility] A 717.7 Chondromalacia Of [place] 02/16/2009 [facility] A 717.7 Chondromalacia Of [place] 02/16/2009 [facility] A 717.7 Chondromalacia Of [place] 02/16/2009 KELLIE MCNEILL DO K 717.7 Chondromalacia Of [place] 02/16/2009 KELLIE MCNEILL DO K 717.7 Chondromalacia Of [place] 02/16/2009 LAITH SENIOR INTERACTION DESIGNER, LAUREANO R 717.7 Chondromalacia Of [place] 02/16/2009 LAITH PATELN LAUREANO R 717.7 Chondromalacia Of [place] 02/16/2009 LAITH SENIOR INTERACTION DESIGNER, LAUREANO R 717.7 Chondromalacia Of [place] 02/16/2009 KATHRYN KUMARI APRN 717.7 Chondromalacia Of [place] 02/16/2009 LAITH SENIOR INTERACTION DESIGNER, LAUREANO R 717.7 Chondromalacia Of [place] 02/16/2009 LAITH SENIOR INTERACTION DESIGNER, LAUREANO R 717.7 Chondromalacia Of [place] 02/16/2009 LAITH PATELN LAUREANO R 717.7 Chondromalacia Of [place] 02/16/2009 KELLIE MCNEILL DO K 717.7 Chondromalacia Of Pat[place] 02/16/2009 MCNEILL DO, KELLIE K 717.7 Chondromalacia Of Patella 05/08/2009 466.0 Acute Bronchitis 05/08/2009 466.0 Acute Bronchitis 05/08/2009 466.0 Acute Bronchitis 05/08/2009 466.0 Acute Bronchitis 05/08/2009 466.0 Acute Bronchitis 05/08/2009 466.0 Acute Bronchitis 05/08/2009 466.0 Acute Bronchitis 05/08/2009 ZORAN MENON MD 466.0 Acute Bronchitis 05/08/2009 [facility] A 466.0 Acute Bronchitis 05/08/2009 DIEGO LSCS, ALEIDA A 466.0 Acute Bronchitis 05/08/2009 ANGELIA MOREL MD 466.0 Acute Bronchitis 05/08/2009 DIEGO LSCS, ALEIDA A 466.0 Acute Bronchitis 05/08/2009 [facility], ALEIDA A 466.0 Acute Bronch[facility]/08[facility]2009 [facility] Acute Bronchitis 05/08/2009 MCNEILL DO, KELLIE K 466.0 Acute Bronchitis 05/08/2009 [facility] 466.0 Acute Bronchitis 05/08/2009 [facility] 466.0 Acute Bronchitis 05/08/2009 [facility] 466.0 Acute Bronchitis 05/08/2009 YONATAN COTA, MAYRA Brannon 466.0 Acute Bronchitis 05/08/2009 [facility] 466.0 Acute Bronchitis 05/08/2009 [facility] 466.0 Acute Bronchitis 05/08/2009 [facility] 466.0 Acute Bronchitis 05/08/2009 [facility] 466.0 Acute Bronchitis 05/08/2009 MCNE[facility] DO, KELLIE K 466.0 Acute Bronchitis 05/08/2009 MCNEILL DO, KELLIE K 466.0 Acute Bronchitis 05/08/2009 LAITH SENIOR INTERACTION DESIGNER, LAUREANO R 466.0 Acute Bronchitis 05/08/2009 LAITH SENIOR INTERACTION DESIGNER, LAUREANO R 466.0 Acute Bronchitis 05/08/2009 LAITH SENIOR INTERACTION DESIGNER, LAUREANO R 466.0 Acute Bronchitis 05/08/2009 KATHRYN KUMARI APRN 466.0 Acute Bronchitis 05/08/2009 LAITH SENIOR INTERACTION DESIGNER, LAUREANO R 466.0 Acute Bronchitis 05/08/2009 LAITH SENIOR INTERACTION DESIGNER, LAUREANO R 466.0 Acute Bronchitis 05/08/2009 LAITH SENIOR INTERACTION DESIGNER, LAUREANO R 466.0 Acute Bronchitis 05/08/2009 MCNEILL DO, KELLIE K 466.0 Acute Bronchitis 05/08/2009 MCNEILL DO, KELLIE K 466.0 Acute Bronchitis 06/07/2009 848.9 Unspecified Muscle Strain 06/07/2009 848.9 Unspecified Muscle Strain 06/07/2009 848.9 Unspecified Muscle Strain 06/07/2009 848.9 Unspecified Muscle Strain 06/07/2009 848.9 Unspecified Muscle Strain 06/07/2009 848.9 Unspecified Muscle Strain 06/07/2009 848.9 Unspecified Muscle Strain 06/07/2009 ZORAN MENON MD 848.9 Unspecified Muscle Strain 06/07/2009 [facility], ALEIDA A 848.9 Unspecified Muscle Strain 06/07/2009 [facility], ALEIDA A 848.9 Unspecified Muscle Strain 06/07/2009 ANGELIA MOREL MD 848.9 Unspecified Muscle Strain 06/07/2009 [facility], ALEIDA A 848.9 Unspecified Muscle Strain 06/07/2009 [facility], ALEIDA A 848.9 Unspecified Muscle Strain 06/07/2009 [facility], ALEIDA A 848.9 Unspecified Muscle Strain 06/07/2009 MCNE[facility] DO, KELLIE K 848.9 Unspecified Muscle Strain 06/07/2009 [facility], ALEIDA A 848.9 Unspecified Muscle Strain 06/07/2009 [facility], ALEIDA A 848.9 Unspecified Muscle Strain 06/07/2009 [facility], ALEIDA A 848.9 Unspecified Muscle Strain 06/07/2009 YONATAN COTA, MAYRA Brannon 848.9 Unspecified Muscle Strain 06/07/2009 [facility], ALEIDA A 848.9 Unspecified Muscle Strain 06/07/2009 [facility], ALEIDA A 848.9 Unspecified Muscle Strain 06/07/2009 [facility], ALEIDA A 848.9 Unspecified Muscle Strain 06/07/2009 [facility], ALEIDA A 848.9 Unspecified Muscle Strain 06/07/2009 MCNEILL DO, KELLIE K 848.9 Unspecified Muscle Strain 06/07/2009 MCNEILL DO, KELLIE K 848.9 Unspecified Muscle Strain 06/07/2009 LAITH MENDOZA, LAUREANO Delaney 848.9 Unspecified Muscle Strain 06/07/2009 LAITH SENIOR INTERACTION DESIGNER, LAUREANO R 848.9 Unspecified Muscle Strain 06/07/2009 LAITH SENIOR INTERACTION DESIGNER, LAUREANO R 848.9 Unspecified Muscle Strain 06/07/2009 QUOC SENIOR INTERACTION DESIGNERKATHRYN T 848.9 Unspecified Muscle Strain 06/07/2009 LAITH SENIOR INTERACTION DESIGNER, LAUREANO R 848.9 Unspecified Muscle Strain 06/07/2009 LAITH SENIOR INTERACTION DESIGNER, LAUREANO R 848.9 Unspecified Muscle Strain 06/07/2009 LAITH SENIOR INTERACTION DESIGNER, LAUREANO R 848.9 Unspecified Muscle Strain 06/07/2009 MCNEILL DO, KELLIE K 848.9 Unspecified Muscle Strain 06/07/2009 MCNEILL DO, KELLIE K 848.9 Unspecified Muscle Strain 12/13/2009 728.85 Spasm Of Muscle 12/13/2009 728.85 Spasm Of Muscle 12/13/2009 728.85 Spasm Of Muscle 12/13/2009 728.85 Spasm Of Muscle 12/13/2009 728.85 Spasm Of Muscle 12/13/2009 728.85 Spasm Of Muscle 12/13/2009 728.85 Spasm Of Muscle 12/13/2009 ZORAN MENON MD 728.85 Spasm Of Muscle 12/13/2009 [facility], ALEIDA A 728.85 Spasm Of Muscle 12/13/2009 [facility], ALEIDA A 728.85 Spasm Of Muscle 12/13/2009 ANGELIA MOREL MD 728.85 Spasm Of Muscle 12/13/2009 [facility], ALEIDA A 728.85 Spasm Of Muscle 12/13/2009 [facility] A 728.85 Spasm Of Muscle 12/13/2009 [facility], ALEIDA A 728.85 Spasm Of Muscle 12/13/2009 LOUISE MCNEILL DOA K 728.85 Spasm Of Muscle 12/13/2009 [facility], ALEIDA A 728.85 Spasm Of Muscle 12/13/2009 [facility], ALEIDA A 728.85 Spasm Of Muscle 12/13/2009 [facility], ALEIDA A 728.85 Spasm Of Muscle 12/13/2009 YONATAN PHD, MAYRA Brannon 728.85 Spasm Of Muscle 12/13/2009 [facility] A 728.85 Spasm Of Muscle 12/13/2009 [facility] A 728.85 Spasm Of Muscle 12/13/2009 [facility], ALEIDA A 728.85 Spasm Of Muscle 12/13/2009 [facility], ALEIDA A 728.85 Spasm Of Muscle 12/13/2009 MCNEILL DOKELLIE K 728.85 Spasm Of Muscle 12/13/2009 MCNEILL DO, KELLIE K 728.85 Spasm Of Muscle 12/13/2009 LAITH SENIOR INTERACTION DESIGNER, LAUREANO R 728.85 Spasm Of Muscle 12/13/2009 LAITH SENIOR INTERACTION DESIGNER, LAUREANO R 728.85 Spasm Of Muscle 12/13/2009 LAITH SENIOR INTERACTION DESIGNER, LAUREANO R 728.85 Spasm Of Muscle 12/13/2009 QUOC SENIOR INTERACTION DESIGNER, KATHRYN T 728.85 Spasm Of Muscle 12/13/2009 LAITH SENIOR INTERACTION DESIGNER, LAUREANO R 728.85 Spasm Of Muscle 12/13/2009 LAITH SENIOR INTERACTION DESIGNER, LAUREANO R 728.85 Spasm Of Muscle 12/13/2009 LAITH SENIOR INTERACTION DESIGNER, LAUREANO R 728.85 Spasm Of Muscle 12/13/2009 MCNEILL DOLOUISEA K 728.85 Spasm Of Muscle 12/13/2009 MCNEILL DO, KELLIE K 728.85 Spasm Of Muscle 12/20/2009 847.9 Sprains And Strains Of Back, Unspecified Site 12/20/2009 847.9 Sprains And Strains Of Back, Unspecified Site 12/20/2009 847.9 Sprains And Strains Of Back, Unspecified Site 12/20/2009 847.9 Sprains And Strains Of Back, Unspecified Site 12/20/2009 847.9 Sprains And Strains Of Back, Unspecified Site 12/20/2009 847.9 Sprains And Strains Of Back, Unspecified Site 12/20/2009 847.9 Sprains And Strains Of Back, Unspecified Site 12/20/2009 ZORAN MNEON MD 847.9 Sprains And Strains Of Back, Unspecified Site 12/20/2009 [facility] 847.9 Sprains And Strains Of Back, Unspecified Site 12/20/2009 [facility] 847.9 Sprains And Strains Of Back, Unspecified Site 12/20/2009 ANGELIA MOREL MD 847.9 Sprains And Strains Of Back, Unspecified Site 12/20/2009 [facility] 847.9 Sprains And Strains Of Back, Unspecified Site 12/20/2009 [facility], ALEIDA A 847.9 Sprains And Strains Of Back, Unspecified Site 12/20/2009 [facility], ALEIDA A 847.9 Sprains And Strains Of Back, Unspecified Site 12/20/2009 MCNEILL DO, KELLIE K 847.9 Sprains And Strains Of Back, Unspecified Site 12/20/2009 [facility], ALEIDA A 847.9 Sprains And Strains Of Back, Unspecified Site 12/20/2009 [facility], ALEIDA A 847.9 Sprains And Strains Of Back, Unspecified Site 12/20/2009 [facility], ALEIDA A 847.9 Sprains And Strains Of Back, Unspecified Site 12/20/2009 YONATAN COTA, MAYRA Brannon 847.9 Sprains And Strains Of Back, Unspecified Site 12/20/2009 [facility], ALEIDA A 847.9 Sprains And Strains Of Back, Unspecified Site 12/20/2009 [facility], ALEIDA A 847.9 Sprains And Strains Of Back, Unspecified Site 12/20/2009 [facility], ALEIDA A 847.9 Sprains And Strains Of Back, Unspecified Site 12/20/2009 [facility], ALEIDA A 847.9 Sprains And Strains Of Back, Unspecified Site 12/20/2009 MCNEILL DO, KELLIE K 847.9 Sprains And Strains Of Back, Unspecified Site 12/20/2009 MCNEILL DO, KELLIE K 847.9 Sprains And Strains Of Back, Unspecified Site 12/20/2009 LAITH SENIOR INTERACTION DESIGNER, LAUREANO R 847.9 Sprains And Strains Of Back, Unspecified Site 12/20/2009 LAITH SENIOR INTERACTION DESIGNER, LAUREANO R 847.9 Sprains And Strains Of Back, Unspecified Site 12/20/2009 LAITH SENIOR INTERACTION DESIGNER, LAUREANO R 847.9 Sprains And Strains Of Back, Unspecified Site 12/20/2009 KATHRYN KUMARI APRN 847.9 Sprains And Strains Of Back, Unspecified Site 12/20/2009 LAITH SENIOR INTERACTION DESIGNER, LAUREANO R 847.9 Sprains And Strains Of Back, Unspecified Site 12/20/2009 LAITH SENIOR INTERACTION DESIGNER, LAUREANO R 847.9 Sprains And Strains Of Back, Unspecified Site 12/20/2009 LAITH SENIOR INTERACTION DESIGNER, LAUREANO R 847.9 Sprains And Strains Of Back, Unspecified Site 12/20/2009 MCNEILL DO, KELLIE K 847.9 Sprains And Strains Of Back, Unspecified Site 12/20/2009 MCNEILL DO, KELLIE K 847.9 Sprains And Strains Of Back, Unspecified Site 01/15/2010 706.1 Other Acne 01/15/2010 706.1 Other Acne 01/15/2010 706.1 Other Acne 01/15/2010 706.1 Other Acne 01/15/2010 706.1 Other Acne 01/15/2010 706.1 Other Acne 01/15/2010 706.1 Other Acne 01/15/2010 LYNSEY DOSHI, ZORAN 706.1 Other Acne 01/15/2010 [facility], ALEIDA A 706.1 Other Acne 01/15/2010 [facility], ALEIDA A 706.1 Other Acne 01/15/2010 MARIA TERESA DOSHI, ANGELIA 706.1 Other Acne 01/15/2010 [facility], ALEIDA A 706.1 Other Acne 01/15/2010 [facility], ALEIDA A 706.1 Other Acne 01/15/2010 [facility], ALEIDA A 706.1 Other Acne 01/15/2010 MCNEILL DO, KELLIE K 706.1 Other Acne 01/15/2010 [facility], ALEIDA A 706.1 Other Acne 01/15/2010 [facility], ALEIDA A 706.1 Other Acne 01/15/2010 [facility], ALEIDA A 706.1 Other Acne 01/15/2010 YONATAN COTA, MAYRA Brannon 706.1 Other Acne 01/15/2010 [facility], ALEIDA A 706.1 Other Acne 01/15/2010 [facility], ALEIDA A 706.1 Other Acne 01/15/2010 [facility], ALEIDA A 706.1 Other Acne 01/15/2010 [facility], ALEIDA A 706.1 Other Acne 01/15/2010 MCNEILL DO, KELLIE K 706.1 Other Acne 01/15/2010 MCNEILL DO, KELLIE K 706.1 Other Acne 01/15/2010 LAITH SENIOR INTERACTION DESIGNER, LAUREANO R 706.1 Other Acne 01/15/2010 LAITH SENIOR INTERACTION DESIGNER, LAUREANO R 706.1 Other Acne 01/15/2010 LAITH SENIOR INTERACTION DESIGNER, LAUREANO R 706.1 Other Acne 01/15/2010 QUOC SENIOR INTERACTION DESIGNER, KATHRYN T 706.1 Other Acne 01/15/2010 LAITH SENIOR INTERACTION DESIGNER, LAUREANO R 706.1 Other Acne 01/15/2010 LAITH SENIOR INTERACTION DESIGNER, LAUREANO R 706.1 Other Acne 01/15/2010 LAITH SENIOR INTERACTION DESIGNER, LAUREANO R 706.1 Other Acne 01/15/2010 MCNEILL DO, KELLIE K 706.1 Other Acne 01/15/2010 MCNEILL DO, KELLIE K 706.1 Other Acne 04/15/2010 789.00 Abdominal Pain 04/15/2010 789.00 Abdominal Pain 04/15/2010 789.00 Abdominal Pain 04/15/2010 789.00 Abdominal Pain 04/15/2010 789.00 Abdominal Pain 04/15/2010 789.00 Abdominal Pain 04/15/2010 789.00 Abdominal Pain 04/15/2010 ZORAN MENON MD 789.00 Abdominal Pain 04/15/2010 [facility], ALEIDA A 789.00 Abdominal Pain 04/15/2010 [facility], ALEIDA A 789.00 Abdominal Pain 04/15/2010 ANGELIA MOREL MD 789.00 Abdominal Pain 04/15/2010 [facility], ALEIDA A 789.00 Abdominal Pain 04/15/2010 [facility], ALEIDA A 789.00 Abdominal Pain 04/15/2010 [facility], ALEIDA A 789.00 Abdominal Pain 04/15/2010 MCNEILL DO, KELLIE K 789.00 Abdominal Pain 04/15/2010 [facility], ALEIDA A 789.00 Abdominal Pain 04/15/2010 [facility], ALEIDA A 789.00 Abdominal Pain 04/15/2010 [facility], ALEIDA A 789.00 Abdominal Pain 04/15/2010 YONATAN COTA, MAYRA Brannon 789.00 Abdominal Pain 04/15/2010 [facility], ALEIDA A 789.00 Abdominal Pain 04/15/2010 [facility], ALEIDA A 789.00 Abdominal Pain 04/15/2010 [facility], ALEIDA A 789.00 Abdominal Pain 04/15/2010 [facility], ALEIDA A 789.00 Abdominal Pain 04/15/2010 MCNEILL DO, KELLIE K 789.00 Abdominal Pain 04/15/2010 MCNEILL DO, KELLIE K 789.00 Abdominal Pain 04/15/2010 LAITH SENIOR INTERACTION DESIGNER, LAUREANO R 789.00 Abdominal Pain 04/15/2010 LAITH SENIOR INTERACTION DESIGNER, LAUREANO R 789.00 Abdominal Pain 04/15/2010 LAITH SENIOR INTERACTION DESIGNER, LAUREANO R 789.00 Abdominal Pain 04/15/2010 QUOC SENIOR INTERACTION DESIGNER, KATHRYN T 789.00 Abdominal Pain 04/15/2010 LAITH SENIOR INTERACTION DESIGNER, LAUREANO R 789.00 Abdominal Pain 04/15/2010 LAITH SENIOR INTERACTION DESIGNER, LAUREANO R 789.00 Abdominal Pain 04/15/2010 LAITH SENIOR INTERACTION DESIGNER, LAUREANO R 789.00 Abdominal Pain 04/15/2010 MCNEILL DO, KELLIE K 789.00 Abdominal Pain 04/15/2010 OSITO PRADO, KELLIE K 789.00 Abdominal Pain 06/11/2010 789.07 Abdominal Pain Generalized 06/11/2010 V18.0 FAM HX DIABETES MELLITUS 06/11/2010 789.07 Abdominal Pain Generalized 06/11/2010 V18.0 FAM HX DIABETES MELLITUS 06/11/2010 789.07 Abdominal Pain Generalized 06/11/2010 V18.0 FAM HX DIABETES MELLITUS 06/11/2010 789.07 Abdominal Pain Generalized 06/11/2010 V18.0 FAM HX DIABETES MELLITUS 06/11/2010 789.07 Abdominal Pain Generalized 06/11/2010 V18.0 FAM HX DIABETES MELLITUS 06/11/2010 789.07 Abdominal Pain Generalized 06/11/2010 V18.0 FAM HX DIABETES MELLITUS 06/11/2010 789.07 Abdominal Pain Generalized 06/11/2010 V18.0 FAM HX DIABETES MELLITUS 06/11/2010 ZORAN MENON MD 789.07 Abdominal Pain Generalized 06/11/2010 ZORAN MENON MD V18.0 FAM HX DIABETES MELLITUS 06/11/2010 [facility]89[facility]07 [facility]/11[facility] V[facility].0 FAM HX DIABETES MELLITUS 06/11/2010 [facility] 789.07 Abdominal Pain Generalized 06/11/2010 [facility] V18.0 FAM HX DIABETES MELLITUS 06/11/2010 ANGELIA MOREL MD 789.07 Abdominal Pain Generalized 06/11/2010 MARIA TERESA MD, ANGELIA V18.0 FAM HX DIABETES MELLITUS 06/11/2010 [facility], ALEIDA A 789.07 Abdominal Pain Generalized 06/11/2010 [facility], ALEIDA A V18.0 FAM HX DIABETES MELLITUS 06/11/2010 [facility], ALEIDA A 789.07 Abdominal Pain Generalized 06/11/2010 [facility], ALEIDA A V18.0 FAM HX DIABETES MELLITUS 06/11/2010 [facility], ALEIDA A 789.07 Abdominal Pain Generalized 06/11/2010 [facility], ALEIDA A V18.0 FAM HX DIABETES MELLITUS 06/11/2010 MCNEILL DOKELLIE K 789.07 Abdominal Pain Generalized 06/11/2010 MCNEILL DOKELLIE K V18.0 FAM HX DIABETES MELLITUS 06/11/2010 [facility] 789.07 Abdominal Pain Generalized 06/11/2010 [facility] V18.0 FAM HX DIABETES MELLITUS 06/11/2010 [facility] 789.07 Abdominal Pain Generalized 06/11/2010 [facility] V18.0 FAM HX DIABETES MELLITUS 06/11/2010 [facility] 789.07 Abdominal Pain Generalized 06/11/2010 [facility] V18.0 FAM HX DIABETES MELLITUS 06/11/2010 YONATAN COTA, MAYRA Brannon 789.07 Abdominal Pain Generalized 06/11/2010 MAYRA TAM PHD V18.0 FAM HX DIABETES MELLITUS 06/11/2010 [facility] 789.07 Abdominal Pain Generalized 06/11/2010 [facility], ALEIDA A V18.0 FAM HX DIABETES MELLITUS 06/11/2010 [facility], ALEIDA A 789.07 Abdominal Pain Generalized 06/11/2010 [facility], ALEIDA A V18.0 FAM HX DIABETES MELLITUS 06/11/2010 [facility], ALEIDA A 789.07 Abdominal Pain Generalized 06/11/2010 [facility], ALEIDA A V18.0 FAM HX DIABETES MELLITUS 06/11/2010 [facility], ALEIDA A 789.07 Abdominal Pain Generalized 06/11/2010 [facility], ALEIDA A V18.0 FAM HX DIABETES MELLITUS 06/11/2010 MCNEILL DOKELLIE K 789.07 Abdominal Pain Generalized 06/11/2010 MCNEILL DO, KELLIE K V18.0 FAM HX DIABETES MELLITUS 06/11/2010 OSITO DO, KELLIE K 789.07 Abdominal Pain Generalized 06/11/2010 OSITO DO, KELLIE K V18.0 FAM HX DIABETES MELLITUS 06/11/2010 LAITH SENIOR INTERACTION DESIGNER, LAUREANO R 789.07 Abdominal Pain Generalized 06/11/2010 LAITH SENIOR INTERACTION DESIGNER, LAUREANO R V18.0 FAM HX DIABETES MELLITUS 06/11/2010 LAITH SENIOR INTERACTION DESIGNER, LAUREANO R 789.07 Abdominal Pain Generalized 06/11/2010 LAITH SENIOR INTERACTION DESIGNER, LAUREANO R V18.0 FAM HX DIABETES MELLITUS 06/11/2010 LAITH SENIOR INTERACTION DESIGNER, LAUREANO R 789.07 Abdominal Pain Generalized 06/11/2010 LAITH SENIOR INTERACTION DESIGNER, LAURAENO R V18.0 FAM HX DIABETES MELLITUS 06/11/2010 QUOC SENIOR INTERACTION DESIGNER, KATHRYN T 789.07 Abdominal Pain Generalized 06/11/2010 QUOC SENIOR INTERACTION DESIGNER KATHRYN T V18.0 FAM HX DIABETES MELLITUS 06/11/2010 LAITH SENIOR INTERACTION DESIGNER, LAUREANO R 789.07 Abdominal Pain Generalized 06/11/2010 LAITH SENIOR INTERACTION DESIGNER, LAUREANO R V18.0 FAM HX DIABETES MELLITUS 06/11/2010 LAITH SENIOR INTERACTION DESIGNER, LAUREANO R 789.07 Abdominal Pain Generalized 06/11/2010 LAITH SENIOR INTERACTION DESIGNER, LAUREANO R V18.0 FAM HX DIABETES MELLITUS 06/11/2010 LAITH SENIOR INTERACTION DESIGNER, LAUREANO R 789.07 Abdominal Pain Generalized 06/11/2010 LAITH SENIOR INTERACTION DESIGNER, LAUREANO R V18.0 FAM HX DIABETES MELLITUS 06/11/2010 OSITO PRADO, KELLIE K 789.07 Abdominal Pain Generalized 06/11/2010 OSITO PRADO, KELLIE K V18.0 FAM HX DIABETES MELLITUS 06/11/2010 OSITO PRADO, KELLIE K 789.07 Abdominal Pain Generalized 06/11/2010 OSITO PRADO, KELLIE K V18.0 FAM HX DIABETES MELLITUS 12/09/2010 788.39 OTHER URINARY INCONTINENCE 12/09/2010 788.39 OTHER URINARY INCONTINENCE 12/09/2010 788.39 OTHER URINARY INCONTINENCE 12/09/2010 788.39 OTHER URINARY INCONTINENCE 12/09/2010 788.39 OTHER URINARY INCONTINENCE 12/09/2010 788.39 OTHER URINARY INCONTINENCE 12/09/2010 788.39 OTHER URINARY INCONTINENCE 12/09/2010 ZORAN MENON MD 788.39 OTHER URINARY INCONTINENCE 12/09/2010 [facility], ALEIDA A 788.39 OTHER URINARY INCONTINENCE 12/09/2010 [facility], ALEIDA A 788.39 OTHER URINARY INCONTINENCE 12/09/2010 MARIA TERESA DOSHI, ANGELIA 788.39 OTHER URINARY INCONTINENCE 12/09/2010 [facility], ALEIDA A 788.39 OTHER URINARY INCONTINENCE 12/09/2010 [facility], ALEIDA A 788.39 OTHER URINARY INCONTINENCE 12/09/2010 [facility], ALEIDA A 788.39 OTHER URINARY INCONTINENCE 12/09/2010 MCNEILL DO, KELLIE K 788.39 OTHER URINARY INCONTINENCE 12/09/2010 [facility], ALEIDA A 788.39 OTHER URINARY INCONTINENCE 12/09/2010 [facility], ALEIDA A 788.39 OTHER URINARY INCONTINENCE 12/09/2010 [facility], ALEIDA A 788.39 OTHER URINARY INCONTINENCE 12/09/2010 YONATAN COTA, MAYRA Brannon 788.39 OTHER URINARY INCONTINENCE 12/09/2010 [facility], ALEIDA A 788.39 OTHER URINARY INCONTINENCE 12/09/2010 [facility], ALEIDA A 788.39 OTHER URINARY INCONTINENCE 12/09/2010 [facility], ALEIDA A 788.39 OTHER URINARY INCONTINENCE 12/09/2010 [facility], ALEIDA A 788.39 OTHER URINARY INCONTINENCE 12/09/2010 LOUISE MCNEILL DOA K 788.39 OTHER URINARY INCONTINENCE 12/09/2010 MCNEILL DOLOUISEA K 788.39 OTHER URINARY INCONTINENCE 12/09/2010 LAITH SENIOR INTERACTION DESIGNER, LAUREANO R 788.39 OTHER URINARY INCONTINENCE 12/09/2010 LAITH PATELN LAUREANO R 788.39 OTHER URINARY INCONTINENCE 12/09/2010 LAITH MENDOZA LAUREANO R 788.39 OTHER URINARY INCONTINENCE 12/09/2010 KATHRYN KUMARI APRN 788.39 OTHER URINARY INCONTINENCE 12/09/2010 LAITH SENIOR INTERACTION DESIGNER, LAUREANO R 788.39 OTHER URINARY INCONTINENCE 12/09/2010 LAITH PATELN LAUREANO R 788.39 OTHER URINARY INCONTINENCE 12/09/2010 LAITH SENIOR INTERACTION DESIGNER, LAUREANO R 788.39 OTHER URINARY INCONTINENCE 12/09/2010 LOUISE MCNEILL DOA K 788.39 OTHER URINARY INCONTINENCE 12/09/2010 LOUISE MCNEILL DOA K 788.39 OTHER URINARY INCONTINENCE 07/07/2011 461.9 SINUSITIS ACUTE 07/07/2011 461.9 SINUSITIS ACUTE 07/07/2011 461.9 SINUSITIS ACUTE 07/07/2011 461.9 SINUSITIS ACUTE 07/07/2011 461.9 SINUSITIS ACUTE 07/07/2011 461.9 SINUSITIS ACUTE 07/07/2011 461.9 SINUSITIS ACUTE 07/07/2011 LYNSEY DOSHI, ZORAN 461.9 SINUSITIS ACUTE 07/07/2011 [facility], ALEIDA A 461.9 SINUSITIS ACUTE 07/07/2011 [facility], ALEIDA A 461.9 SINUSITIS ACUTE 07/07/2011 ANGELIA MOREL MD 461.9 SINUSITIS ACUTE 07/07/2011 [facility], ALEIDA A 461.9 SINUSITIS ACUTE 07/07/2011 [facility], ALEIDA A 461.9 SINUSITIS ACUTE 07/07/2011 [facility], ALEIDA A 461.9 SINUSITIS ACUTE 07/07/2011 MCNEILL DO, KELLIE K 461.9 SINUSITIS ACUTE 07/07/2011 [facility], ALEIDA A 461.9 SINUSITIS ACUTE 07/07/2011 [facility], ALEIDA A 461.9 SINUSITIS ACUTE 07/07/2011 [facility], ALEIDA A 461.9 SINUSITIS ACUTE 07/07/2011 YONATAN COTA, MAYRA Brannon 461.9 SINUSITIS ACUTE 07/07/2011 [facility], ALEIDA A 461.9 SINUSITIS ACUTE 07/07/2011 [facility], ALEIDA A 461.9 SINUSITIS ACUTE 07/07/2011 [facility], ALEIDA A 461.9 SINUSITIS ACUTE 07/07/2011 [facility], ALEIDA A 461.9 SINUSITIS ACUTE 07/07/2011 MCNEILL DO, KELLIE K 461.9 SINUSITIS ACUTE 07/07/2011 MCNEILL DO, KELLIE K 461.9 SINUSITIS ACUTE 07/07/2011 LAITH SENIOR INTERACTION DESIGNER, LAUREANO R 461.9 SINUSITIS ACUTE 07/07/2011 LAITH SENIOR INTERACTION DESIGNER, LAUREANO R 461.9 SINUSITIS ACUTE 07/07/2011 LAITH SENIOR INTERACTION DESIGNER, LAUREANO R 461.9 SINUSITIS ACUTE 07/07/2011 KATHRYN KUMARI APRN 461.9 SINUSITIS ACUTE 07/07/2011 LAITH SENIOR INTERACTION DESIGNER, LAUREANO R 461.9 SINUSITIS ACUTE 07/07/2011 LAITH PATELN, LAUREANO R 461.9 SINUSITIS ACUTE 07/07/2011 LAITH PATELN, LAUREANO R 461.9 SINUSITIS ACUTE 07/07/2011 OSITO PRADO KELLIE K 461.9 SINUSITIS ACUTE 07/07/2011 OSITO PRADO KELLIE K 461.9 SINUSITIS ACUTE 10/31/2011 Ot V57.1 PHYSICAL THERAPY NEC 10/31/2011 Ot V58.78 AFTERCARE POST SURGERY MUSCULOSKELETAL S 03/04/2012 Ot 920 CONTUSION FACE/ SCALP/NCK 03/04/2012 Ot 959.01 HEAD INJURY , NOS 03/04/2012 Ot E000.8 OTHER EXTERNAL CAUSE STATUS 03/04/2012 Ot E005.4 ACTIVITIES INVOLVING CHEERLEADING 03/04/2012 Ot E849.4 ACCID IN RECREATION AREA 03/04/2012 Ot 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.9 STRUCK BY OBJ/PERSON NEC 04/19/2012 V03.89 MENINGOCOCCAL DX 04/19/2012 V04.81 FLU DX (3 YRS AND ABOVE, IM) 04/19/2012 V03.89 MENINGOCOCCAL DX 04/19/2012 V04.81 FLU DX (3 YRS AND ABOVE, IM) 04/19/2012 V03.89 MENINGOCOCCAL DX 04/19/2012 V04.81 FLU DX (3 YRS AND ABOVE, IM) 04/19/2012 V03.89 MENINGOCOCCAL DX 04/19/2012 V04.81 FLU DX (3 YRS AND ABOVE, IM) 04/19/2012 V03.89 MENINGOCOCCAL DX 04/19/2012 V04.81 FLU DX (3 YRS AND ABOVE, IM) 04/19/2012 V03.89 MENINGOCOCCAL DX 04/19/2012 V04.81 FLU DX (3 YRS AND ABOVE, IM) 04/19/2012 V03.89 MENINGOCOCCAL DX 04/19/2012 V04.81 FLU DX (3 YRS AND ABOVE, IM) 04/19/2012 ZORAN MENON MD V03.89 MENINGOCOCCAL DX 04/19/2012 ZORAN MENON MD V04.81 FLU DX (3 YRS AND ABOVE, IM) 04/19/2012 ALEIDA ROBLES V03.89 MENINGOCOCCAL DX 04/19/2012 ALEIDA ROBLES V04.81 FLU DX (3 YRS AND ABOVE, IM) 04/19/2012 DIEGO LSCS, ALEIDA A V03.89 MENINGOCOCCAL DX 04/19/2012 DIEGO LSCS, ALEIDA A V04.81 FLU DX (3 YRS AND ABOVE, IM) 04/19/2012 ANGELIA MOREL MD V03.89 MENINGOCOCCAL DX 04/19/2012 MARIA TERESA DOSHI, ANGELIA V04.81 FLU DX (3 YRS AND ABOVE, IM) 04/19/2012 DIEGO LSCS, ALEIDA A V03.89 MENINGOCOCCAL DX 04/19/2012 DIEGO LSCS, ALEIDA A V04.81 FLU DX (3 YRS AND ABOVE, IM) 04/19/2012 DIEGO LSCS, ALEIDA A V03.89 MENINGOCOCCAL DX 04/19/2012 DIEGO LSCS, ALEIDA A V04.81 FLU DX (3 YRS AND ABOVE, IM) 04/19/2012 DIEGO LSCS, ALEIDA A V03.89 MENINGOCOCCAL DX 04/19/2012 DIEGO LSCS, ALEIDA A V04.81 FLU DX (3 YRS AND ABOVE, IM) 04/19/2012 MCNEILL DO, KELLIE K V03.89 MENINGOCOCCAL DX 04/19/2012 MCNEILL DO, KELLIE K V04.81 FLU DX (3 YRS AND ABOVE, IM) 04/19/2012 DIEGO LSCS, ALEIDA A V03.89 MENINGOCOCCAL DX 04/19/2012 DIEGO LSCS, ALEIDA A V04.81 FLU DX (3 YRS AND ABOVE, IM) 04/19/2012 DIEGO LSCS, ALEIDA A V03.89 MENINGOCOCCAL DX 04/19/2012 DIEGO LSCS, ALEIDA A V04.81 FLU DX (3 YRS AND ABOVE, IM) 04/19/2012 DIEGO LSCS, ALEIDA A V03.89 MENINGOCOCCAL DX 04/19/2012 DIEGO LSCS, ALEIDA A V04.81 FLU DX (3 YRS AND ABOVE, IM) 04/19/2012 YONATAN COTA, MAYRA Brannon V03.89 MENINGOCOCCAL DX 04/19/2012 MAYRA TAM PHD V04.81 FLU DX (3 YRS AND ABOVE, IM) 04/19/2012 DIGEO LSCS, ALEIDA A V03.89 MENINGOCOCCAL DX 04/19/2012 DIEGO LSCS, ALEIDA A V04.81 FLU DX (3 YRS AND ABOVE, IM) 04/19/2012 DIEGO LSCS, ALEIDA A V03.89 MENINGOCOCCAL DX 04/19/2012 DIEGO LSCS, ALEIDA A V04.81 FLU DX (3 YRS AND ABOVE, IM) 04/19/2012 DIEGO LSCS, ALEIDA A V03.89 MENINGOCOCCAL DX 04/19/2012 DIEGO LSCS, ALEIDA A V04.81 FLU DX (3 YRS AND ABOVE, IM) 04/19/2012 DIEGO LSCS, ALEIDA A V03.89 MENINGOCOCCAL DX 04/19/2012 DIEGO LSCS, ALEIDA A V04.81 FLU DX (3 YRS AND ABOVE, IM) 04/19/2012 MCNEILL DO, KELLIE K V03.89 MENINGOCOCCAL DX 04/19/2012 MCNEILL DO, KELLIE K V04.81 FLU DX (3 YRS AND ABOVE, IM) 04/19/2012 MCNEILL DO, KELLIE K V03.89 MENINGOCOCCAL DX 04/19/2012 MCNEILL DO, KELLIE K V04.81 FLU DX (3 YRS AND ABOVE, IM) 04/19/2012 LAITH MENDOZA, LAUREANO R V03.89 MENINGOCOCCAL DX 04/19/2012 LAITH PATELN, LAUREANO R V04.81 FLU DX (3 YRS AND ABOVE, IM) 04/19/2012 LAITH SENIOR INTERACTION DESIGNER, LAUREANO R V03.89 MENINGOCOCCAL DX 04/19/2012 LAITH PATELN, LAUREANO R V04.81 FLU DX (3 YRS AND ABOVE, IM) 04/19/2012 LAITH SENIOR INTERACTION DESIGNER, LAUREANO R V03.89 MENINGOCOCCAL DX 04/19/2012 LAITH PATELN, LAUREANO R V04.81 FLU DX (3 YRS AND ABOVE, IM) 04/19/2012 KATHRYN KUMARI APRN V03.89 MENINGOCOCCAL DX 04/19/2012 KATHRYN KUMARI APRN V04.81 FLU DX (3 YRS AND ABOVE, IM) 04/19/2012 LAITH SENIOR INTERACTION DESIGNER, LAUREANO R V03.89 MENINGOCOCCAL DX 04/19/2012 LAITH PATELN, LAUREANO R V04.81 FLU DX (3 YRS AND ABOVE, IM) 04/19/2012 LAITH SENIOR INTERACTION DESIGNER, LAUREANO R V03.89 MENINGOCOCCAL DX 04/19/2012 LAITH SENIOR INTERACTION DESIGNER, LAUREANO R V04.81 FLU DX (3 YRS AND ABOVE, IM) 04/19/2012 LAITH PATELN, LAUREANO R V03.89 MENINGOCOCCAL DX 04/19/2012 LAITH MENDOZA LAUREANO R V04.81 FLU DX (3 YRS AND ABOVE, IM) 04/19/2012 MCNEILL DO, KELLIE K V03.89 MENINGOCOCCAL DX 04/19/2012 MCNEILL DO, KELLIE K V04.81 FLU DX (3 YRS AND ABOVE, IM) 04/19/2012 MCNEILL DO, KELLIE K V03.89 MENINGOCOCCAL DX 04/19/2012 MCNEILL DO, KELLIE K V04.81 FLU DX (3 YRS AND ABOVE, IM) 07/23/2012 372.30 CONJUNCTIVITIS UNSPECIFIED 07/23/2012 373.00 BLEPHARITIS UNSPECIFIED 07/23/2012 372.30 CONJUNCTIVITIS UNSPECIFIED 07/23/2012 373.00 BLEPHARITIS UNSPECIFIED 07/23/2012 372.30 CONJUNCTIVITIS UNSPECIFIED 07/23/2012 373.00 BLEPHARITIS UNSPECIFIED 07/23/2012 372.30 CONJUNCTIVITIS UNSPECIFIED 07/23/2012 373.00 BLEPHARITIS UNSPECIFIED 07/23/2012 372.30 CONJUNCTIVITIS UNSPECIFIED 07/23/2012 373.00 BLEPHARITIS UNSPECIFIED 07/23/2012 372.30 CONJUNCTIVITIS UNSPECIFIED 07/23/2012 373.00 BLEPHARITIS UNSPECIFIED 07/23/2012 ZORAN MENON MD 372.30 CONJUNCTIVITIS UNSPECIFIED 07/23/2012 ZORAN MENON MD 373.00 BLEPHARITIS UNSPECIFIED 07/23/2012 [facility] A 372.30 CONJUNCTIVITIS UNSPECIFIED 07/23/2012 [facility] A 373.00 BLEPHARITIS UNSPECIFIED 07/23/2012 [facility] A 372.30 CONJUNCTIVITIS UNSPECIFIED 07/23/2012 [facility] A 373.00 BLEPHARITIS UNSPECIFIED 07/23/2012 MARIA TERESA DOSHI, ANGELIA 372.30 CONJUNCTIVITIS UNSPECIFIED 07/23/2012 MARIA TERESA DOSHI, ANGELIA 373.00 BLEPHARITIS UNSPECIFIED 07/23/2012 [facility] A 372.30 CONJUNCTIVITIS UNSPECIFIED 07/23/2012 [facility] A 373.00 BLEPHARITIS UNSPECIFIED 07/23/2012 [facility] A 372.30 CONJUNCTIVITIS UNSPECIFIED 07/23/2012 [facility] A 373.00 BLEPHARITIS UNSPECIFIED 07/23/2012 [facility] A 372.30 CONJUNCTIVITIS UNSPECIFIED 07/23/2012 [facility] 373.00 BLEPHARITIS UNSPECIFIED 07/23/2012 MCNEILL DO, KELLIE K 372.30 CONJUNCTIVITIS UNSPECIFIED 07/23/2012 MCNEILL DO, KELLIE K 373.00 BLEPHARITIS UNSPECIFIED 07/23/2012 [facility] A 372.30 CONJUNCTIVITIS UNSPECIFIED 07/23/2012 [facility] A 373.00 BLEPHARITIS UNSPECIFIED 07/23/2012 [facility] A 372.30 CONJUNCTIVITIS UNSPECIFIED 07/23/2012 [facility] A 373.00 BLEPHARITIS UNSPECIFIED 07/23/2012 [facility] A 372.30 CONJUNCTIVITIS UNSPECIFIED 07/23/2012 [facility] A 373.00 BLEPHARITIS UNSPECIFIED 07/23/2012 MAYRA TAM PHD 372.30 CONJUNCTIVITIS UNSPECIFIED 07/23/2012 MAYRA TAM PHD 373.00 BLEPHARITIS UNSPECIFIED 07/23/2012 [facility] A 372.30 CONJUNCTIVITIS UNSPECIFIED 07/23/2012 [facility] A 373.00 BLEPHARITIS UNSPECIFIED 07/23/2012 [facility] A 372.30 CONJUNCTIVITIS UNSPECIFIED 07/23/2012 [facility] A 373.00 BLEPHARITIS UNSPECIFIED 07/23/2012 [facility] A 372.30 CONJUNCTIVITIS UNSPECIFIED 07/23/2012 [facility] A 373.00 BLEPHARITIS UNSPECIFIED 07/23/2012 [facility] A 372.30 CONJUNCTIVITIS UNSPECIFIED 07/23/2012 [facility] 373.00 BLEPHARITIS UNSPECIFIED 07/23/2012 MCNEILL DO, KELLIE K 372.30 CONJUNCTIVITIS UNSPECIFIED 07/23/2012 MCNEILL DO, KELLIE K 373.00 BLEPHARITIS UNSPECIFIED 07/23/2012 MCNEILL DO, KELLIE K 372.30 CONJUNCTIVITIS UNSPECIFIED 07/23/2012 MCNEILL DO, KELLIE K 373.00 BLEPHARITIS UNSPECIFIED 07/23/2012 LAITH SENIOR INTERACTION DESIGNER, LAUREANO R 372.30 CONJUNCTIVITIS UNSPECIFIED 07/23/2012 LAITH SENIOR INTERACTION DESIGNER, LAUREANO R 373.00 BLEPHARITIS UNSPECIFIED 07/23/2012 LAITH SENIOR INTERACTION DESIGNER, LAUREANO R 372.30 CONJUNCTIVITIS UNSPECIFIED 07/23/2012 LAITH SENIOR INTERACTION DESIGNER, LAUREANO R 373.00 BLEPHARITIS UNSPECIFIED 07/23/2012 LAITH SENIOR INTERACTION DESIGNER, LAUREANO R 372.30 CONJUNCTIVITIS UNSPECIFIED 07/23/2012 LAITH SENIOR INTERACTION DESIGNER, LAUREANO R 373.00 BLEPHARITIS UNSPECIFIED 07/23/2012 QUOC SENIOR INTERACTION DESIGNER, KATHRYN T 372.30 CONJUNCTIVITIS UNSPECIFIED 07/23/2012 QUOC SENIOR INTERACTION DESIGNER, KATHRYN T 373.00 BLEPHARITIS UNSPECIFIED 07/23/2012 LAITH SENIOR INTERACTION DESIGNER, LAUREANO R 372.30 CONJUNCTIVITIS UNSPECIFIED 07/23/2012 LAITH SENIOR INTERACTION DESIGNER, LAUREANO R 373.00 BLEPHARITIS UNSPECIFIED 07/23/2012 LAITH SENIOR INTERACTION DESIGNER, LAUREANO R 372.30 CONJUNCTIVITIS UNSPECIFIED 07/23/2012 LAITH SENIOR INTERACTION DESIGNER, LAUREANO R 373.00 BLEPHARITIS UNSPECIFIED 07/23/2012 LAITH SENIOR INTERACTION DESIGNER, LAUREANO R 372.30 CONJUNCTIVITIS UNSPECIFIED 07/23/2012 LAITH SENIOR INTERACTION DESIGNER, LAUREANO R 373.00 BLEPHARITIS UNSPECIFIED 07/23/2012 OSITO PRADO KELLIE K 372.30 CONJUNCTIVITIS UNSPECIFIED 07/23/2012 OSITO PRADO, KELLIE K 373.00 BLEPHARITIS UNSPECIFIED 07/23/2012 MCNEILL DO, KELLIE K 372.30 CONJUNCTIVITIS UNSPECIFIED 07/23/2012 MCNEILL , KELLIE K 373.00 BLEPHARITIS UNSPECIFIED 09/22/2012 462 sore throat 09/22/2012 462 sore throat 09/22/2012 462 sore throat 09/22/2012 462 sore throat 09/22/2012 462 sore throat 09/22/2012 ZORAN MENON MD 462 sore throat 09/22/2012 [facility] 462 sore throat 09/22/2012 [facility] 462 sore throat 09/22/2012 ANGELIA MOREL MD 462 sore throat 09/22/2012 [facility] 462 sore throat 09/22/2012 [facility] 462 sore throat 09/22/2012 [facility] 462 sore throat 09/22/2012 KELLIE MCNEILL DO K 462 SORE THROAT 09/22/2012 [facility] 462 SORE THROAT 09/22/2012 [facility] 462 SORE THROAT 09/22/2012 [facility] 462 SORE THROAT 09/22/2012 YONATAN COTA, MAYRA Brannon 462 SORE THROAT 09/22/2012 [facility] 462 SORE THROAT 09/22/2012 [facility] 462 SORE THROAT 09/22/2012 [facility] 462 SORE THROAT 09/22/2012 [facility] 462 SORE THROAT 09/22/2012 MCNEILL DO, KELLIE K 462 SORE THROAT 09/22/2012 MCNEILL DO, KELLIE K 462 SORE THROAT 09/22/2012 LAITH SENIOR INTERACTION DESIGNER, LAUREANO R 462 SORE THROAT 09/22/2012 LAITH SENIOR INTERACTION DESIGNER, LAUREANO R 462 SORE THROAT 09/22/2012 LAITH SENIOR INTERACTION DESIGNER, LAUREANO R 462 SORE THROAT 09/22/2012 QUOC SENIOR INTERACTION DESIGNER, KATHRYN Luo 462 SORE THROAT 09/22/2012 LAITH SENIOR INTERACTION DESIGNER, LAUREANO R 462 SORE THROAT 09/22/2012 LAITH SENIOR INTERACTION DESIGNER, LAUREANO R 462 SORE THROAT 09/22/2012 LAITH SENIOR INTERACTION DESIGNER, LAUREANO R 462 SORE THROAT 09/22/2012 MCNEILL DO, KELLIE K 462 SORE THROAT 09/22/2012 MCNEILL DO, KELLIE K 462 SORE THROAT 01/27/2013 493.90 ASTHMA UNSPECIFIED 01/27/2013 V70.3 OTHER GENERAL MEDICAL EXAMINATION FOR ADMINISTRATIVE PURPOSES 01/27/2013 493.90 ASTHMA UNSPECIFIED 01/27/2013 V70.3 OTHER GENERAL MEDICAL EXAMINATION FOR ADMINISTRATIVE PURPOSES 01/27/2013 493.90 ASTHMA UNSPECIFIED 01/27/2013 V70.3 OTHER GENERAL MEDICAL EXAMINATION FOR ADMINISTRATIVE PURPOSES 01/27/2013 ZORAN MENON MD 493.90 ASTHMA UNSPECIFIED 01/27/2013 ZORAN MENON MD V70.3 OTHER GENERAL MEDICAL EXAMINATION FOR ADMINISTRATIVE PURPOSES 01/27/2013 [facility] Rodriguez 493.90 ASTHMA UNSPECIFIED 01/27/2013 [facility] Rodriguez V70.3 OTHER GENERAL MEDICAL EXAMINATION FOR ADMINISTRATIVE PURPOSES 01/27/2013 [facility] Rodriguez 493.90 ASTHMA UNSPECIFIED 01/27/2013 [facility] V70.3 OTHER GENERAL MEDICAL EXAMINATION FOR ADMINISTRATIVE PURPOSES 01/27/2013 ANGELIA MOREL MD 493.90 ASTHMA UNSPECIFIED 01/27/2013 MARIA TERESA DOSHI, ANGELIA V70.3 OTHER GENERAL MEDICAL EXAMINATION FOR ADMINISTRATIVE PURPOSES 01/27/2013 [facility] 493.90 ASTHMA UNSPECIFIED 01/27/2013 [facility] V70.3 OTHER GENERAL MEDICAL EXAMINATION FOR ADMINISTRATIVE PURPOSES 01/27/2013 [facility] 493.90 ASTHMA UNSPECIFIED 01/27/2013 [facility] V70.3 OTHER GENERAL MEDICAL EXAMINATION FOR ADMINISTRATIVE PURPOSES 01/27/2013 [facility] 493.90 ASTHMA UNSPECIFIED 01/27/2013 [facility] V70.3 OTHER GENERAL MEDICAL EXAMINATION FOR ADMINISTRATIVE PURPOSES 01/27/2013 MCNEILL DOKELLIE K 493.90 ASTHMA UNSPECIFIED 01/27/2013 MCNEILL DOLOUISEA K V70.3 OTHER GENERAL MEDICAL EXAMINATION FOR ADMINISTRATIVE PURPOSES 01/27/2013 [facility] 493.90 ASTHMA UNSPECIFIED 01/27/2013 [facility] V70.3 OTHER GENERAL MEDICAL EXAMINATION FOR ADMINISTRATIVE PURPOSES 01/27/2013 [facility] 493.90 ASTHMA UNSPECIFIED 01/27/2013 [facility] V70.3 OTHER GENERAL MEDICAL EXAMINATION FOR ADMINISTRATIVE PURPOSES 01/27/2013 [facility] 493.90 ASTHMA UNSPECIFIED 01/27/2013 [facility] V70.3 OTHER GENERAL MEDICAL EXAMINATION FOR ADMINISTRATIVE PURPOSES 01/27/2013 MAYRA TAM PHD 493.90 ASTHMA UNSPECIFIED 01/27/2013 MAYRA TAM PHD V70.3 OTHER GENERAL MEDICAL EXAMINATION FOR ADMINISTRATIVE PURPOSES 01/27/2013 [facility] 493.90 ASTHMA UNSPECIFIED 01/27/2013 [facility] A V70.3 OTHER GENERAL MEDICAL EXAMINATION FOR ADMINISTRATIVE PURPOSES 01/27/2013 [facility] A 493.90 ASTHMA UNSPECIFIED 01/27/2013 [facility] V70.3 OTHER GENERAL MEDICAL EXAMINATION FOR ADMINISTRATIVE PURPOSES 01/27/2013 [facility] 493.90 ASTHMA UNSPECIFIED 01/27/2013 [facility] V70.3 OTHER GENERAL MEDICAL EXAMINATION FOR ADMINISTRATIVE PURPOSES 01/27/2013 [facility] 493.90 ASTHMA UNSPECIFIED 01/27/2013 [facility] V70.3 OTHER GENERAL MEDICAL EXAMINATION FOR ADMINISTRATIVE PURPOSES 01/27/2013 MCNEILL DO KELLIE K 493.90 ASTHMA UNSPECIFIED 01/27/2013 MCNEILL DO KELLIE K V70.3 OTHER GENERAL MEDICAL EXAMINATION FOR ADMINISTRATIVE PURPOSES 01/27/2013 MCNEILL DO KELLIE K 493.90 ASTHMA UNSPECIFIED 01/27/2013 MCNEILL DO, KELLIE K V70.3 OTHER GENERAL MEDICAL EXAMINATION FOR ADMINISTRATIVE PURPOSES 01/27/2013 LAITH SENIOR INTERACTION DESIGNER, LAUREANO R 493.90 ASTHMA UNSPECIFIED 01/27/2013 LAITH SENIOR INTERACTION DESIGNER, LAUREANO R V70.3 OTHER GENERAL MEDICAL EXAMINATION FOR ADMINISTRATIVE PURPOSES 01/27/2013 LAITH SENIOR INTERACTION DESIGNER, LAUREANO R 493.90 ASTHMA UNSPECIFIED 01/27/2013 LAITH SENIOR INTERACTION DESIGNER, LAUREANO R V70.3 OTHER GENERAL MEDICAL EXAMINATION FOR ADMINISTRATIVE PURPOSES 01/27/2013 LAITH SENIOR INTERACTION DESIGNER, LAUREANO R 493.90 ASTHMA UNSPECIFIED 01/27/2013 LAITH SENIOR INTERACTION DESIGNER, LAUREANO R V70.3 OTHER GENERAL MEDICAL EXAMINATION FOR ADMINISTRATIVE PURPOSES 01/27/2013 KATHRYN KUMARI APRN T 493.90 ASTHMA UNSPECIFIED 01/27/2013 KATHRYN KUMARI APRN V70.3 OTHER GENERAL MEDICAL EXAMINATION FOR ADMINISTRATIVE PURPOSES 01/27/2013 LAITH SENIOR INTERACTION DESIGNER, LAUREANO R 493.90 ASTHMA UNSPECIFIED 01/27/2013 LAITH SENIOR INTERACTION DESIGNER, LAUREANO R V70.3 OTHER GENERAL MEDICAL EXAMINATION FOR ADMINISTRATIVE PURPOSES 01/27/2013 LAITH SENIOR INTERACTION DESIGNER, LAUREANO R 493.90 ASTHMA UNSPECIFIED 01/27/2013 LAITH SENIOR INTERACTION DESIGNER, LAUREANO R V70.3 OTHER GENERAL MEDICAL EXAMINATION FOR ADMINISTRATIVE PURPOSES 01/27/2013 LAITH SENIOR INTERACTION DESIGNER, LAUREANO R 493.90 ASTHMA UNSPECIFIED 01/27/2013 LIATH SENIOR INTERACTION DESIGNER, LAUREANO R V70.3 OTHER GENERAL MEDICAL EXAMINATION FOR ADMINISTRATIVE PURPOSES 01/27/2013 MCNEILL DO KELLIE K 493.90 ASTHMA UNSPECIFIED 01/27/2013 LOUISE MCNEILL DOA K V70.3 OTHER GENERAL MEDICAL EXAMINATION FOR ADMINISTRATIVE PURPOSES 01/27/2013 MCNEILL DO KELLIE K 493.90 ASTHMA UNSPECIFIED 01/27/2013 MCNEILL , KELLIE K V70.3 OTHER GENERAL MEDICAL EXAMINATION FOR ADMINISTRATIVE PURPOSES 01/28/2013 309.0 ADJUSTMENT DISORDER WITH DEPRESSED MOOD 01/28/2013 780.79 fatigue 01/28/2013 309.0 ADJUSTMENT DISORDER WITH DEPRESSED MOOD 01/28/2013 780.79 fatigue 01/28/2013 309.0 ADJUSTMENT DISORDER WITH DEPRESSED MOOD 01/28/2013 780.79 fatigue 01/28/2013 ZORAN MENON MD 309.0 ADJUSTMENT DISORDER WITH DEPRESSED MOOD 01/28/2013 ZORAN MENON MD 780.79 fatigue 01/28/2013 [facility] A 309.0 ADJUSTMENT DISORDER WITH DEPRESSED MOOD 01/28/2013 [facility] A 780.79 fatigue 01/28/2013 [facility] A 309.0 ADJUSTMENT DISORDER WITH DEPRESSED MOOD 01/28/2013 [facility] 780.79 fatigue 01/28/2013 ANGELIA MOREL MD 309.0 ADJUSTMENT DISORDER WITH DEPRESSED MOOD 01/28/2013 ANGELIA MOREL MD 780.79 fatigue 01/28/2013 [facility] A 309.0 ADJUSTMENT DISORDER WITH DEPRESSED MOOD 01/28/2013 [facility] 780.79 fatigue 01/28/2013 [facility] A 309.0 ADJUSTMENT DISORDER WITH DEPRESSED MOOD 01/28/2013 [facility] 780.79 fatigue 01/28/2013 [facility] 309.0 ADJUSTMENT DISORDER WITH DEPRESSED MOOD 01/28/2013 [facility] 780.79 fatigue 01/28/2013 KELLIE MCNEILL DO 309.0 ADJUSTMENT DISORDER WITH DEPRESSED MOOD 01/28/2013 KELLIE MCNEILL DO 780.79 FATIGUE 01/28/2013 [facility] A 309.0 ADJUSTMENT DISORDER WITH DEPRESSED MOOD 01/28/2013 [facility] 780.79 FATIGUE 01/28/2013 [facility] A 309.0 ADJUSTMENT DISORDER WITH DEPRESSED MOOD 01/28/2013 [facility] 780.79 FATIGUE 01/28/2013 [facility] 309.0 ADJUSTMENT DISORDER WITH DEPRESSED MOOD 01/28/2013 [facility] A 780.79 FATIGUE 01/28/2013 MAYRA TAM PHD 309.0 ADJUSTMENT DISORDER WITH DEPRESSED MOOD 01/28/2013 MAYRA TAM PHD 780.79 FATIGUE 01/28/2013 [facility] A 309.0 ADJUSTMENT DISORDER WITH DEPRESSED MOOD 01/28/2013 [facility] 780.79 FATIGUE 01/28/2013 [facility] A 309.0 ADJUSTMENT DISORDER WITH DEPRESSED MOOD 01/28/2013 [facility] 780.79 FATIGUE 01/28/2013 [facility] A 309.0 ADJUSTMENT DISORDER WITH DEPRESSED MOOD 01/28/2013 [facility] 780.79 FATIGUE 01/28/2013 [facility] 309.0 ADJUSTMENT DISORDER WITH DEPRESSED MOOD 01/28/2013 [facility] 780.79 FATIGUE 01/28/2013 MCNEILL DO KELLIE K 309.0 ADJUSTMENT DISORDER WITH DEPRESSED MOOD 01/28/2013 MCNEILL DO, KELLIE K 780.79 FATIGUE 01/28/2013 MCNEILL DO, KELLIE K 309.0 ADJUSTMENT DISORDER WITH DEPRESSED MOOD 01/28/2013 MCNEILL DO KELLIE K 780.79 FATIGUE 01/28/2013 LAITH SENIOR INTERACTION DESIGNER, LAUREANO R 309.0 ADJUSTMENT DISORDER WITH DEPRESSED MOOD 01/28/2013 LAITH SENIOR INTERACTION DESIGNER, LAUREANO R 780.79 FATIGUE 01/28/2013 LAITH SENIOR INTERACTION DESIGNER, LAUREANO R 309.0 ADJUSTMENT DISORDER WITH DEPRESSED MOOD 01/28/2013 LAITH SENIOR INTERACTION DESIGNER, LAUREANO R 780.79 FATIGUE 01/28/2013 LAITH SENIOR INTERACTION DESIGNER, LAUREANO R 309.0 ADJUSTMENT DISORDER WITH DEPRESSED MOOD 01/28/2013 LAITH SENIOR INTERACTION DESIGNER, LAUREANO R 780.79 FATIGUE 01/28/2013 KATHRYN KUMARI APRN 309.0 ADJUSTMENT DISORDER WITH DEPRESSED MOOD 01/28/2013 KATHRYN KUMARI APRN 780.79 FATIGUE 01/28/2013 LAITH SENIOR INTERACTION DESIGNER, LAUREANO R 309.0 ADJUSTMENT DISORDER WITH DEPRESSED MOOD 01/28/2013 LAITH SENIOR INTERACTION DESIGNER, LAUREANO R 780.79 FATIGUE 01/28/2013 LAITH SENIOR INTERACTION DESIGNER, LAUREANO R 309.0 ADJUSTMENT DISORDER WITH DEPRESSED MOOD 01/28/2013 LAITH SENIOR INTERACTION DESIGNER, LAUREANO R 780.79 FATIGUE 01/28/2013 LAITH SENIOR INTERACTION DESIGNER, LAUREANO R 309.0 ADJUSTMENT DISORDER WITH DEPRESSED MOOD 01/28/2013 LAITH SENIOR INTERACTION DESIGNER, LAUREANO R 780.79 FATIGUE 01/28/2013 MCNEILL DO KELLIE K 309.0 ADJUSTMENT DISORDER WITH DEPRESSED MOOD 01/28/2013 MCNEILL DO KELLIE K 780.79 FATIGUE 01/28/2013 MCNEILL DO KELLIE K 309.0 ADJUSTMENT DISORDER WITH DEPRESSED MOOD 01/28/2013 MCNEILL DO KELLIE K 780.79 FATIGUE 02/11/2013 784.0 HEADACHE 02/11/2013 784.0 HEADACHE 02/11/2013 LYNSEY DOSHI, ZORAN 784.0 HEADACHE 02/11/2013 [facility] 784.0 HEADACHE 02/11/2013 [facility], [facility] A 784.0 HEADACHE 02/11/2013 MARIA TERESA DOSHI, ANGELIA 784.0 HEADACHE 02/11/2013 [facility], [facility] A 784.0 HEADACHE 02/11/2013 [facility], [facility] A 784.0 HEADACHE 02/11/2013 [facility], [facility] A 784.0 HEADACHE 02/11/2013 MCNEILL DO, KELLIE K 784.0 HEADACHE 02/11/2013 [facility], [facility] A 784.0 HEADACHE 02/11/2013 [facility], [facility] A 784.0 HEADACHE 02/11/2013 [facility], [facility] A 784.0 HEADACHE 02/11/2013 YONATAN PHD, MAYRA Brannon 784.0 HEADACHE 02/11/2013 [facility] 784.0 HEADACHE 02/11/2013 [facility] 784.0 HEADACHE 02/11/2013 [facility] 784.0 HEADACHE 02/11/2013 [facility] 784.0 HEADACHE 02/11/2013 MCNEILL DO, KELLIE K 784.0 HEADACHE 02/11/2013 MCNEILL DO, KELLIE K 784.0 HEADACHE 02/11/2013 LAITH SENIOR INTERACTION DESIGNER, LAUREANO R 784.0 HEADACHE 02/11/2013 LAITH SENIOR INTERACTION DESIGNER, LAUREANO R 784.0 HEADACHE 02/11/2013 LAITH SENIOR INTERACTION DESIGNER, LAUREANO R 784.0 HEADACHE 02/11/2013 KATHRYN KUMARI APRN T 784.0 HEADACHE 02/11/2013 LAITH SENIOR INTERACTION DESIGNER, LAUREANO R 784.0 HEADACHE 02/11/2013 LAITH SENIOR INTERACTION DESIGNER, LAUREANO R 784.0 HEADACHE 02/11/2013 LAITH SENIOR INTERACTION DESIGNER, LAUREANO R 784.0 HEADACHE 02/11/2013 MCNEILL DO, KELLIE K 784.0 HEADACHE 02/11/2013 MCNEILL DO, KELLIE K 784.0 HEADACHE 03/21/2013 LYNSEY DOSHI, ZORAN 296.20 MAJOR DEPRESSIVE AFFECTIVE DISORDER SINGLE EPISODE UNSPECIFIED DEGREE 03/21/2013 [facility], [facility] A 296.20 MAJOR DEPRESSIVE AFFECTIVE DISORDER SINGLE EPISODE UNSPECIFIED DEGREE 03/21/2013 [facility] A 296.20 MAJOR DEPRESSIVE AFFECTIVE DISORDER SINGLE EPISODE UNSPECIFIED DEGREE 03/21/2013 ANGELIA MOREL MD 296.20 MAJOR DEPRESSIVE AFFECTIVE DISORDER SINGLE EPISODE UNSPECIFIED DEGREE 03/21/2013 [facility] A 296.20 MAJOR DEPRESSIVE AFFECTIVE DISORDER SINGLE EPISODE UNSPECIFIED DEGREE 03/21/2013 [facility] A 296.20 MAJOR DEPRESSIVE AFFECTIVE DISORDER SINGLE EPISODE UNSPECIFIED DEGREE 03/21/2013 [facility] A 296.20 MAJOR DEPRESSIVE AFFECTIVE DISORDER SINGLE EPISODE UNSPECIFIED DEGREE 03/21/2013 LOUISE MCNEILL DOA K 296.20 MAJOR DEPRESSIVE AFFECTIVE DISORDER SINGLE EPISODE UNSPECIFIED DEGREE 03/21/2013 [facility] A 296.20 MAJOR DEPRESSIVE AFFECTIVE DISORDER SINGLE EPISODE UNSPECIFIED DEGREE 03/21/2013 [facility] A 296.20 MAJOR DEPRESSIVE AFFECTIVE DISORDER SINGLE EPISODE UNSPECIFIED DEGREE 03/21/2013 [facility] A 296.20 MAJOR DEPRESSIVE AFFECTIVE DISORDER SINGLE EPISODE UNSPECIFIED DEGREE 03/21/2013 YONATAN COTA, MAYRA Brannon 296.20 MAJOR DEPRESSIVE AFFECTIVE DISORDER SINGLE EPISODE UNSPECIFIED DEGREE 03/21/2013 [facility] 296.20 MAJOR DEPRESSIVE AFFECTIVE DISORDER SINGLE EPISODE UNSPECIFIED DEGREE 03/21/2013 [facility] A 296.20 MAJOR DEPRESSIVE AFFECTIVE DISORDER SINGLE EPISODE UNSPECIFIED DEGREE 03/21/2013 [facility] 296.20 MAJOR DEPRESSIVE AFFECTIVE DISORDER SINGLE EPISODE UNSPECIFIED DEGREE 03/21/2013 [facility] 296.20 MAJOR DEPRESSIVE AFFECTIVE DISORDER SINGLE EPISODE UNSPECIFIED DEGREE 03/21/2013 LOUISE MCNEILL DOA K 296.20 MAJOR DEPRESSIVE AFFECTIVE DISORDER SINGLE EPISODE UNSPECIFIED DEGREE 03/21/2013 MCNEILL DOLOUISEA K 296.20 MAJOR DEPRESSIVE AFFECTIVE DISORDER SINGLE EPISODE UNSPECIFIED DEGREE 03/21/2013 [employer] [employer] INTERACTION DESIGNER, LAUREANO R 296.20 MAJOR DEPRESSIVE AFFECTIVE DISORDER SINGLE EPISODE UNSPECIFIED DEGREE 03/21/2013 [facility] [employer] INTERACTION DESIGN[employer], LAUREANO R 296.20 MAJOR DEPRESSIVE AFFECTIVE DISORDER SINGLE EPISODE UNSPECIFIED DEGREE 03/21/2013 [facility] [employer] INTERACTION DESIGNER, LAUREANO R 296.20 MAJOR DEPRESSIVE AFFECTIVE DISORDER SINGLE EPISODE UNSPECIFIED DEGREE 03/21/2013 KATHRYN KUMARI APRN 296.20 MAJOR DEPRESSIVE AFFECTIVE DISORDER SINGLE EPISODE UNSPECIFIED DEGREE 03/21/2013 [facility] [employer] INTERACTION DESIGN[employer], LAUREANO R 296.20 MAJOR DEPRESSIVE AFFECTIVE DISORDER SINGLE EPISODE UNSPECIFIED DEGREE 03/21/2013 LAITH MENDOZA, LAUREANO R 296.20 MAJOR DEPRESSIVE AFFECTIVE DISORDER SINGLE EPISODE UNSPECIFIED DEGREE 03/21/2013 AMY OZUNA APRNINA R 296.20 MAJOR DEPRESSIVE AFFECTIVE DISORDER SINGLE EPISODE UNSPECIFIED DEGREE 03/21/2013 KELLIE MCNEILL DO K 296.20 MAJOR DEPRESSIVE AFFECTIVE DISORDER SINGLE EPISODE UNSPECIFIED DEGREE 03/21/2013 KELLIE MCNEILL DO K 296.20 MAJOR DEPRESSIVE AFFECTIVE DISORDER SINGLE EPISODE UNSPECIFIED DEGREE 06/24/2013 ANGELIA MOREL MD 465.9 UPPER RESPIRATORY INFECTION 06/24/2013 ANGELIA MOREL MD V58.69 MEDICATION HIGH RISK 06/24/2013 [facility], ALEIDA A 465.9 UPPER RESPIRATORY INFECTION 06/24/2013 [facility], ALEIDA A V58.69 MEDICATION HIGH RISK 06/24/2013 [facility], ALEIDA A 465.9 UPPER RESPIRATORY INFECTION 06/24/2013 [facility], ALEIDA A V58.69 MEDICATION HIGH RISK 06/24/2013 [facility], ALEIDA A 465.9 UPPER RESPIRATORY INFECTION 06/24/2013 [facility], ALEIDA A V58.69 MEDICATION HIGH RISK 06/24/2013 KELLIE MCNEILL DO K 465.9 UPPER RESPIRATORY INFECTION 06/24/2013 KELLIE MCNEILL DO K V58.69 MEDICATION HIGH RISK 06/24/2013 [facility] 465.9 UPPER RESPIRATORY INFECTION 06/24/2013 [facility], ALEIDA A V58.69 MEDICATION HIGH RISK 06/24/2013 [facility], ALEIDA A 465.9 UPPER RESPIRATORY INFECTION 06/24/2013 [facility], ALEIDA A V58.69 MEDICATION HIGH RISK 06/24/2013 [facility] 465.9 UPPER RESPIRATORY INFECTION 06/24/2013 [facility], ALEIDA A V58.69 MEDICATION HIGH RISK 06/24/2013 MAYRA TAM PHD 465.9 UPPER RESPIRATORY INFECTION 06/24/2013 MAYRA TAM PHD V58.69 MEDICATION HIGH RISK 06/24/2013 [facility], ALEIDA A 465.9 UPPER RESPIRATORY INFECTION 06/24/2013 [facility], ALEIDA A V58.69 MEDICATION HIGH RISK 06/24/2013 [facility], ALEIDA A 465.9 UPPER RESPIRATORY INFECTION 06/24/2013 [facility], ALEIDA A V58.69 MEDICATION HIGH RISK 06/24/2013 [facility], ALEIDA A 465.9 UPPER RESPIRATORY INFECTION 06/24/2013 [facility], ALEIDA A V58.69 MEDICATION HIGH RISK 06/24/2013 [facility], ALEIDA A 465.9 UPPER RESPIRATORY INFECTION 06/24/2013 [facility], ALEIDA A V58.69 MEDICATION HIGH RISK 06/24/2013 MCNEILL DO, KELLIE K 465.9 UPPER RESPIRATORY INFECTION 06/24/2013 MCNEILL DO, KELLIE K V58.69 MEDICATION HIGH RISK 06/24/2013 MCNEILL DO, KELLIE K 465.9 UPPER RESPIRATORY INFECTION 06/24/2013 MCNEILL DO, KELLIE K V58.69 MEDICATION HIGH RISK 06/24/2013 LAITH SENIOR INTERACTION DESIGNER, LAUREANO R 465.9 UPPER RESPIRATORY INFECTION 06/24/2013 LAITH SENIOR INTERACTION DESIGNER, LAUREANO R V58.69 MEDICATION HIGH RISK 06/24/2013 LAITH SENIOR INTERACTION DESIGNER, LAUREANO R 465.9 UPPER RESPIRATORY INFECTION 06/24/2013 LAITH SENIOR INTERACTION DESIGNER, LAUREANO R V58.69 MEDICATION HIGH RISK 06/24/2013 LAITH SENIOR INTERACTION DESIGNER, LAUREANO R 465.9 UPPER RESPIRATORY INFECTION 06/24/2013 LAITH SENIOR INTERACTION DESIGNER, LAUREANO R V58.69 MEDICATION HIGH RISK 06/24/2013 QUOC SENIOR INTERACTION DESIGNER, KATHRYN T 465.9 UPPER RESPIRATORY INFECTION 06/24/2013 QUOC SENIOR INTERACTION DESIGNER, KATHRYN T V58.69 MEDICATION HIGH RISK 06/24/2013 LA[facility] SENIOR INTERACTION DESIGNER, LAUREANO R 465.9 UPPER RESPIRATORY INFECTION 06/24/2013 LAITH SENIOR INTERACTION DESIGNER, ALUREANO R V58.69 MEDICATION HIGH RISK 06/24/2013 LAITH SENIOR INTERACTION DESIGNER, LAUREANO R 465.9 UPPER RESPIRATORY INFECTION 06/24/2013 LAITH SENIOR INTERACTION DESIGNER, LAUREANO R V58.69 MEDICATION HIGH RISK 06/24/2013 LAITH SENIOR INTERACTION DESIGNER, LAUREANO R 465.9 UPPER RESPIRATORY INFECTION 06/24/2013 LAITH SENIOR INTERACTION DESIGNER, LAUREANO R V58.69 MEDICATION HIGH RISK 06/24/2013 MCNEILL DO, KELLIE K 465.9 UPPER RESPIRATORY INFECTION 06/24/2013 MCNEILL DO, KELLIE K V58.69 MEDICATION HIGH RISK 06/24/2013 MCNEILL DO, KELLIE K 465.9 UPPER RESPIRATORY INFECTION 06/24/2013 MCNEILL DO, KELLIE K V58.69 MEDICATION HIGH RISK 10/04/2013 YONATAN PHD, MAYRA Brannon 296.50 MO BIPOLAR I DEPRESSED UNSPECIFIED 10/04/2013 [facility], ALEIDA A 296.50 MO BIPOLAR I DEPRESSED UNSPECIFIED 10/04/2013 [facility], ALEIDA A 296.50 MO BIPOLAR I DEPRESSED UNSPECIFIED 10/04/2013 [facility], ALEIDA A 296.50 MO BIPOLAR I DEPRESSED UNSPECIFIED 10/04/2013 [facility], ALEIDA A 296.50 MO BIPOLAR I DEPRESSED UNSPECIFIED 10/04/2013 MCNEILL DO, KELLIE K 296.50 MO BIPOLAR I DEPRESSED UNSPECIFIED 10/04/2013 MCNEILL DO KELLIE K 296.50 MO BIPOLAR I DEPRESSED UNSPECIFIED 10/04/2013 LAITH SENIOR INTERACTION DESIGNER, LAUREANO R 296.50 MO BIPOLAR I DEPRESSED UNSPECIFIED 10/04/2013 LAITH SENIOR INTERACTION DESIGNER, LAUREANO R 296.50 MO BIPOLAR I DEPRESSED UNSPECIFIED 10/04/2013 LAITH PATELN, LAUREANO R 296.50 MO BIPOLAR I DEPRESSED UNSPECIFIED 10/04/2013 KATHRYN KUMARI APRN 296.50 MO BIPOLAR I DEPRESSED UNSPECIFIED 10/04/2013 LAITH SENIOR INTERACTION DESIGNER, LAUREANO R 296.50 MO BIPOLAR I DEPRESSED UNSPECIFIED 10/04/2013 LAITH PATELN LAUREANO R 296.50 MO BIPOLAR I DEPRESSED UNSPECIFIED 10/04/2013 LAITH SENIOR INTERACTION DESIGNER, LAUREANO R 296.50 MO BIPOLAR I DEPRESSED UNSPECIFIED 10/04/2013 MCNEILL DOLOUISEA K 296.50 MO BIPOLAR I DEPRESSED UNSPECIFIED 10/04/2013 MCNEILL DOLOUISEA K 296.50 MO BIPOLAR I DEPRESSED UNSPECIFIED 11/22/2013 MCNEILL DOLOUISEA K 719.47 PAIN IN JOINT INVOLVING ANKLE AND FOOT 11/22/2013 LOUISE MCNEILL DOA K 719.47 PAIN IN JOINT INVOLVING ANKLE AND FOOT 11/22/2013 LAITH PATELN LAUREANO R 719.47 PAIN IN JOINT INVOLVING ANKLE AND FOOT 11/22/2013 LAITH PATELN LAUREANO R 719.47 PAIN IN JOINT INVOLVING ANKLE AND FOOT 11/22/2013 AMY OZUNA APRNINA R 719.47 PAIN IN JOINT INVOLVING ANKLE AND FOOT 11/22/2013 KATHRYN KUMARI APRN 719.47 PAIN IN JOINT INVOLVING ANKLE AND FOOT 11/22/2013 AMY OZUNA APRNINA R 719.47 PAIN IN JOINT INVOLVING ANKLE AND FOOT 11/22/2013 AMY OZUNA APRNINA R 719.47 PAIN IN JOINT INVOLVING ANKLE AND FOOT 11/22/2013 AMY OZUNA APRNINA R 719.47 PAIN IN JOINT INVOLVING ANKLE AND FOOT 11/22/2013 MCNEILL DO, KELLIE K 719.47 PAIN IN JOINT INVOLVING ANKLE AND FOOT 11/22/2013 MCNEILL DO, KELILE K 719.47 PAIN IN JOINT INVOLVING ANKLE AND FOOT 12/28/2013 LAITH MENDOZA, LAUREANO R 780.4 DIZZINESS AND GIDDINESS 12/28/2013 LAITH SENIOR INTERACTION DESIGNER, LAUREANO R 780.79 OTHER MALAISE AND FATIGUE 12/28/2013 LAITH PATELN, LAUREANO R 780.4 DIZZINESS AND GIDDINESS 12/28/2013 LAITH SENIOR INTERACTION DESIGNER, LAUREANO R 780.79 OTHER MALAISE AND FATIGUE 12/28/2013 LAITH PATELN, LAUREANO R 780.4 DIZZINESS AND GIDDINESS 12/28/2013 LAITH MENDOZA LAUREANO R 780.79 OTHER MALAISE AND FATIGUE 12/28/2013 KATHRYN KUMARI APRN 780.4 DIZZINESS AND GIDDINESS 12/28/2013 KATHRYN KUMARI APRN 780.79 OTHER MALAISE AND FATIGUE 12/28/2013 LAITH MENDOZA LAUREANO R 780.4 DIZZINESS AND GIDDINESS 12/28/2013 LAITH MENDOZA LAUREANO R 780.79 OTHER MALAISE AND FATIGUE 12/28/2013 LAITH MENDOZA, LAUREANO R 780.4 DIZZINESS AND GIDDINESS 12/28/2013 LAITH MENDOZA, LAUREANO R 780.79 OTHER MALAISE AND FATIGUE 12/28/2013 LAITH MENDOZA, LAUREANO R 780.4 DIZZINESS AND GIDDINESS 12/28/2013 LAITH MENDOZA, LAUREANO R 780.79 OTHER MALAISE AND FATIGUE 12/28/2013 MCNEILL DO, KELLIE K 780.4 DIZZINESS AND GIDDINESS 12/28/2013 MCNEILL DO, KELLIE K 780.79 OTHER MALAISE AND FATIGUE 12/28/2013 MCNEILL DO, KELLIE K 780.4 DIZZINESS AND GIDDINESS 12/28/2013 MCNEILL DO, KELLIE K 780.79 OTHER MALAISE AND FATIGUE 03/01/2014 KATHRYN KUMARI APRN 922.1 CONTUSION OF CHEST WALL 03/01/2014 KATHRYN KUMARI APRN E005.4 CHEERLEADING 03/01/2014 LAUREANO OZUNA APRN R 922.1 CONTUSION OF CHEST WALL 03/01/2014 LAUREANO OZUNA APRN R E005.4 CHEERLEADING 03/01/2014 LAITH SENIOR INTERACTION DESIGNER, LAUREANO R 922.1 CONTUSION OF CHEST WALL 03/01/2014 LAITH MENDOZA, LAUREANO R E005.4 CHEERLEADING 03/01/2014 LAITH MENDOZA LAUREANO R 922.1 CONTUSION OF CHEST WALL 03/01/2014 LAITH MENDOZA LAUREANO R E005.4 CHEERLEADING 03/01/2014 MCNEILL DO, KELLIE K 922.1 CONTUSION OF CHEST WALL 03/01/2014 MCNEILL DO, KELLIE K E005.4 CHEERLEADING 03/01/2014 MCNEILL DO, KELLIE K 922.1 CONTUSION OF CHEST WALL 03/01/2014 MCNEILL DO, KELLIE K E005.4 CHEERLEADING 04/07/2014 AMY OZUNA APRNINA R 719.43 PAIN IN JOINT INVOLVING FOREARM 04/07/2014 AMY OZUNA APRNINA R 719.43 PAIN IN JOINT INVOLVING FOREARM 04/07/2014 AMY OZUNA APRNINA R 719.43 PAIN IN JOINT INVOLVING FOREARM 04/07/2014 MCNEILL DO, KELLIE K 719.43 PAIN IN JOINT INVOLVING FOREARM 04/07/2014 MCNEILL DO, KELLIE K 719.43 PAIN IN JOINT INVOLVING FOREARM 05/16/2014 LAITH MENDOZA, LAUREANO R 724.2 LUMBAGO 05/16/2014 MCNEILL DO, KELLIE K 724.2 LUMBAGO 05/16/2014 MCNEILL DO, KELLIE K 724.2 LUMBAGO 07/04/2014 MCNEILL DO, KELLIE K 780.52 INSOMNIA UNSPECIFIED 07/04/2014 MCNEILL DO, KELLIE K 781.0 ABNORMAL INVOLUNTARY MOVEMENTS 07/04/2014 MCNEILL DO, KELLIE K 783.0 ANOREXIA 07/04/2014 MCNEILL DO, KELLIE K 780.52 INSOMNIA UNSPECIFIED 07/04/2014 MCNEILL DO, KELLIE K 781.0 ABNORMAL INVOLUNTARY MOVEMENTS 07/04/2014 MCNEILL DO, KELLIE K 783.0 ANOREXIA 08/07/2014 MCNEILL DO, KELLIE K 719.46 PAIN IN JOINT INVOLVING LOWER LEG 02/13/2016 Ot 625.9 FEM GENITAL SYMPTOMS NOS 02/14/2016 MIMI HAJI MD Ot L50.0 ALLERGIC URTICARIA 02/14/2016 Ot 625.9 FEM GENITAL SYMPTOMS NOS 02/15/2016 BRUEGGEMANN MD, MIMI T Ot L50.0 ALLERGIC URTICARIA 02/15/2016 ADITHYA DOSHI, MIMI T Ot L50.9 URTICARIA, UNSPECIFIED 03/20/2016 LUL JULIAN SENIOR INTERACTION DESIGNER Ot L30.8 OTHER SPECIFIED DERMATITIS 04/01/2016 LUL JULIAN SENIOR INTERACTION DESIGNER Ot L30.8 OTHER SPECIFIED DERMATITIS 04/01/2016 AMINA DO, IESHA K Ot L50.0 ALLERGIC URTICARIA 04/03/2016 AMINA DO, IESHA K Ot L50.0 ALLERGIC URTICARIA 04/07/2016 AMINA DO, IESHA K Ot L50.0 ALLERGIC URTICARIA 04/16/2016 BENJAMIN DOSHI, ROGELIO A Ot R22.0 LOCALIZED SWELLING, MASS AND LUMP, HEAD 04/16/2016 BENJAMIN DOSHI, ROGELIO A Ot T78.3XXA ANGIONEUROTIC EDEMA, INITIAL ENCOUNTER 04/18/2016 BENJAMIN DOSHI, ROGELIO A Ot R22.0 LOCALIZED SWELLING, MASS AND LUMP, HEAD 04/18/2016 BENJAMIN DOSHI, ROGELIO A Ot T78.3XXA ANGIONEUROTIC EDEMA, INITIAL ENCOUNTER 04/22/2016 BENJAMIN DOSHI, ROGELIO A Ot R22.0 LOCALIZED SWELLING, MASS AND LUMP, HEAD 04/22/2016 BENJAMIN DOSHI, ROGELIO A Ot T78.3XXA ANGIONEUROTIC EDEMA, INITIAL ENCOUNTER 04/23/2016 BENJAMIN DOSHI, ROGELIO A Ot R22.0 LOCALIZED SWELLING, MASS AND LUMP, HEAD 04/23/2016 BENJAMIN DOSHI, ROGELIO A Ot T78.3XXA ANGIONEUROTIC EDEMA, INITIAL ENCOUNTER 05/14/2016 OTILIA DOSHI, PAU Brannon Ot L50.0 ALLERGIC URTICARIA 05/14/2016 OTILIA DOSHI, PAU Brannon Ot T78.2XXA ANAPHYLACTIC SHOCK, UNSPECIFIED, INITIAL 05/15/2016 OTILIA DOSHI, PAU Brannon Ot L50.0 ALLERGIC URTICARIA 05/15/2016 OTILIA DOSHI, PAU Brannon Ot T78.2XXA ANAPHYLACTIC SHOCK, UNSPECIFIED, INITIAL 02/24/2017 NOHEMI PERDOMO Ot S83.232A COMPLEX TEAR OF MEDIAL MENSC, CURRENT IN 02/24/2017 NOHEMI PERDOMO Ot X58.XXXA EXPOSURE TO OTHER SPECIFIED FACTORS, INI 02/24/2017 PERDOMO, NOHEMI D CAMP ASSISTANT Ot Y99.8 OTHER EXTERNAL CAUSE STATUS 02/24/2017 NOHEMI PERDOMO CAMP ASSISTANT Ot S83.232A COMPLEX TEAR OF MEDIAL MENSC, CURRENT IN 02/24/2017 NOHEMI PERDOMO CAMP ASSISTANT Ot X58.XXXA EXPOSURE TO OTHER SPECIFIED FACTORS, INI 02/24/2017 NOHEMI PERDOMO CAMP ASSISTANT Ot Y99.8 OTHER EXTERNAL CAUSE STATUS 02/25/2017 NOHEMI PERDOMOP Ot S83.232A COMPLEX TEAR OF MEDIAL MENSC, CURRENT IN 02/25/2017 NOHEMI PERDOMO CAMP ASSISTANT Ot X58.XXXA EXPOSURE TO OTHER SPECIFIED FACTORS, INI 02/25/2017 NOHEMI PERDOMO CAMP ASSISTANT Ot Y99.8 OTHER EXTERNAL CAUSE STATUS Procedures Code Description [place] [id number] STREP A (IN-HOUSE) 09/22/2012 41468 MONO TEST (IN-HOUSE) 02/25/2013 36072 PSYCH DIAGNOSTIC EVALUATION 04/29/2013 62556 PSYTX PT&/FAMILY 45 MINUTES 05/16/2013 88524 PSYTX PT&/FAMILY 45 MINUTES 07/11/2013 45883 PSYTX PT&/FAMILY 45 MINUTES 08/02/2013 37258 PSYTX PT&/FAMILY 30 MINUTES 08/11/2013 17361 PSYTX PT&/FAMILY 45 MINUTES 08/26/2013 27476 PSYTX PT&/FAMILY 45 MINUTES 09/05/2013 89265 PSYTX PT&/FAMILY 30 MINUTES 10/03/2013 82064 PSYTX PT&/FAMILY 45 MINUTES 10/05/2013 35355 PSYTX PT&/FAMILY 45 MINUTES 10/10/2013 20378 PSYTX PT&/FAMILY 45 MINUTES 10/21/2013 47314 PSYTX PT&/FAMILY 45 MINUTES 10/27/2013 11596 PSYTX PT&/FAMILY 30 MINUTES 11/07/2013 24059 XRAY FOOT RIGHT 2 VIEWS 11/22/2013 22973 GLUCOSE FINGER STICK 12/28/2013 02287 UA W/ CULTURE IF INDICATED 12/28/2013 23415 TEST, URINE (IN- HOUSE) 12/28/2013 16279 CBC 12/29/2013 43663 CMP 12/29/2013 46877 HCG QUANTITATIVE 12/29/2013 97256 TSH 12/29/2013 19321 UA LONG DIP 01/02/2014 11957 XRAY WRIST RIGHT 2 VIEWS 04/07/2014 37727 UA LONG DIP 05/16/2014 AMY JAVIER 08/07/2014 Results Test Result Range [id number] - 03/19/16 10:14 Serum tissue transglutaminase IgA antibody detection 3 0 -19 Serum gliadin IgA antibody assay (units/volume) 11 % 0- 19 Gliadin IgG antibody assay 7 % 0-19 Serum or plasma IgA measurement (mass/volume) 105 % 71- 263 Complete blood count (CBC) with automated white blood cell (WBC) differential - 04/16/16 09:45 Blood leukocytes automated count (number/volume) 8.7 10*3/uL 4.3-11.0 Blood erythrocytes automated count (number/volume) 4.52 10*6/uL 4.35-5.85 Venous blood hemoglobin measurement (mass/volume) 13.1 g/dL 11.5-16.0 Blood hematocrit (volume fraction) 38 % 35-52 Automated erythrocyte mean corpuscular volume 84 [foz_us] 80-99 Automated erythrocyte mean corpuscular hemoglobin (mass per erythrocyte) 29 pg 25-34 Automated erythrocyte mean corpuscular hemoglobin concentration measurement ( mass/volume) 34 g/dL 32-36 Automated erythrocyte distribution width ratio 12.8 % 10.0-14.5 Automated blood platelet count (count/volume) 204 10*3/uL 130-400 Automated blood platelet mean volume measurement 10.2 [foz_us] 7.4-10.4 Automated blood neutrophils/100 leukocytes 61 % 42-75 Automated blood lymphocytes/100 leukocytes 25 % 12-44 Blood monocytes/100 leukocytes 9 % 0-12 Automated blood eosinophils/100 leukocytes 4 % 0-10 Automated blood basophils/100 leukocytes 1 % 0-10 Blood neutrophils automated count (number/volume) 5.3 10*3 1.8-7.8 Blood lymphocytes automated count (number/volume) 2.2 10*3 1.0-4.0 Blood monocytes automated count (number/volume) 0.8 10*3 0.0-1.0 Automated eosinophil count 0.4 10*3/uL 0.0-0.3 Automated blood basophil count (count/volume) 0.1 10*3/uL 0.0-0.1 Serum or plasma complement C1 esterase inhibitor measurement (mass/volume) - 09:45 Complement C1 esterase inhibitor measurement 17 % 31-67 Complement C4 [mass/volume] in serum or plasma - 04/16/16 09:45 Complement C4 [mass/volume] in serum or plasma 15 % 15- 59 Pap Lb, rfx HPV ASCU - 04/07/17 16:36 DIAGNOSIS: Comment Specimen adequacy: Comment Clinician provided ICD10: Comment Performed by: Comment . . Pathologist provided ICD10: Comment Note: Comment . Comment PAP TEST, HPV IF ASCUS - 04/07/17 16:36 DIAGNOSIS: NRG Specimen adequacy: NRG Clinician provided ICD10: NRG Performed by: NRG . . NRG Note: NRG Pathologist provided ICD10: NRG . NRG CULTURE, GENITAL - 04/07/17 16:36 Genital Culture, Routine Final report NRG Result 1 Yeast isolated. NRG Result 2 NRG Genital Culture, Routine - 04/07/17 16:36 Genital Culture, Routine Note Encounters ACCT No. Visit Date/Time Discharge Status Pt. Type Provider Facility Loc./Unit Complaint [id number] 08/07/2014 13:11:00 08/07/2014 23:59:59 CLS Outpatient KELLIE MCNEILL DO [id number] 07/04/2014 10:04:00 07/04/2014 23:59:59 CLS Outpatient KELLIE MCNEILL DO [id number] 05/16/2014 11:26:00 05/16/2014 23:59:59 CLS Outpatient LAUREANO OZUNA APRN [id number] 04/07/2014 08:39:00 04/07/2014 23:59:59 CLS Outpatient LAUREANO OZUNA APRN [id number] 04/07/2014 08:39:00 04/07/2014 23:59:59 CLS Outpatient LAUREANO OZUNA APRN [id number] 03/01/2014 17:20:00 03/01/2014 23:59:59 CLS Outpatient KATHRYN KUMARI APRN [id number] 01/02/2014 12:21:00 01/02/2014 23:59:59 CLS Outpatient LAUREANO OZUNA APRN [id number] 12/29/2013 08:24:00 12/29/2013 23:59:59 CLS Outpatient LAUREANO OZUNA APRN [id number] 12/28/2013 15:36:00 12/28/2013 23:59:59 CLS Outpatient LAUREANO OZUNA APRN [id number] 12/23/2013 11:26:00 12/23/2013 23:59:59 CLS Outpatient OSITO PRADO KELLIE Bowman [id number] 11/22/2013 10:30:00 11/22/2013 23:59:59 CLS Outpatient OSITO PRADO KELLIE Bowman [id number] 11/07/2013 10:43:00 11/07/2013 23:59:59 CLS Outpatient DIEGO LSCS, ALEIDA Jennifer [id number] 10/27/2013 12:50:00 10/27/2013 23:59:59 CLS Outpatient DIEGO LSCS, ALEIDA Jennifer [id number] 10/21/2013 10:36:00 10/21/2013 23:59:59 CLS Outpatient DIEGO LSCS, ALEIDA Jennifer [id number] 10/10/2013 12:45:00 10/10/2013 23:59:59 CLS Outpatient DIEGO LSCSLAEIDA Jennifer [id number] 10/04/2013 08:57:00 10/04/2013 23:59:59 CLS Outpatient YONATAN COTA, MAYRA Brannon [id number] 10/03/2013 11:45:00 10/03/2013 23:59:59 CLS Outpatient DIEGO LSCS, ALEIDA Jennifer [id number] 09/05/2013 12:15:00 09/05/2013 23:59:59 CLS Outpatient DIEGO LSCS, ALEIDA Jennifer [id number] 08/26/2013 10:30:00 08/26/2013 23:59:59 CLS Outpatient DIEGO LSCSALEIDA Jennifer [id number] 08/23/2013 08:35:00 08/23/2013 23:59:59 CLS Outpatient MCNEILL DOKELLIE Gracie [id number] 08/11/2013 11:15:00 08/11/2013 23:59:59 CLS Outpatient DIEGO LSCS, ALEIDA Jennifer [id number] 07/28/2013 11:30:00 07/28/2013 23:59:59 CLS Outpatient DIEGO LSCS, ALEIDA Jennifer [id number] 07/11/2013 10:50:00 07/11/2013 23:59:59 CLS Outpatient DIEGO LSCS, ALEIDA Jennifer [id number] 06/24/2013 09:44:00 06/24/2013 23:59:59 CLS Outpatient MARIA TERESA DOSHI, ANGELIA [id number] 05/16/2013 08:21:00 05/16/2013 23:59:59 CLS Outpatient ALEIDA ROBLES [id number] 04/29/2013 14:05:00 04/29/2013 23:59:59 CLS Outpatient ALEIDA ROBLES [id number] 03/21/2013 15:59:00 03/21/2013 23:59:59 CLS Outpatient ZORAN MENON MD [id number] 09/22/2012 12:50:00 09/22/2012 23:59:59 CLS Outpatient [id number] 07/23/2012 14:53:00 07/23/2012 23:59:59 CLS Outpatient [id number] 04/19/2012 11:40:00 04/19/2012 23:59:59 CLS Outpatient [id number] 02/25/2013 15:52:00 Document Registration [id number] 02/11/2013 16:26:00 Document Registration [id number] 01/31/2013 08:03:00 Document Registration [id number] 11/12/2012 11:22:00 Document Registration [id number] 04/09/2017 16:07:00 Document Registration [id number] 11/25/2017 13:20:00 11/25/2017 23:59:59 CLS Outpatient IESHA [facility]UL [facility] [id number] 04/07/2017 15:20:00 Document Registration [id number] 04/10/2017 11:08:00 Document Registration [id number] 02/05/2017 09:24:00 02/05/2017 23:59:59 CLS Outpatient NOHEMI PERDOMO [facility] RAD COMPLEX TEAR OF MEDIAL MENISCUS S83.232A [id number] 05/14/2016 11:15:00 05/14/2016 16:09:00 DIS Emergency PAU BINGHAM MD [facility] ER HIVES/FACIAL SWELLING [id number] 04/16/2016 09:02:00 04/16/2016 10:35:00 DIS Outpatient ROGELIO ALEXANDER MD [facility] ER POSS ALERGIC REACTION [id number] 04/01/2016 19:23:00 04/01/2016 20:44:00 DIS Emergency IESHA HUYNH DO [facility] ER ALLERGIC REACTION/ SWELLING [id number] 03/19/2016 10:03:00 03/19/2016 23:59:59 CLS Outpatient LUL JULIAN APRN [facility] LAB SPONGIOTIC DERMATITIS [id number] 02/13/2016 23:28:00 02/14/2016 01:40:00 DIS Emergency ADITHYA DOSHI, MIMI Luo [facility] ER ALLERGIC RXN [id number] 03/04/2012 18:05:00 Document Registration [id number] 10/30/2011 16:05:00 Document Registration [id number] 09/30/2010 14:23:00 Document Registration
--- NOTE | 2017-12-13 18:33 | ED Lower Extremity ---
General Chief Complaint: Lower Extremity Stated Complaint: R FOOT PAIN Nursing Triage Note: patient advises at 1530 she [place] and landed on the rocks below. She is c/o severe right foot pain as well as calf pain. Nursing Sepsis Screen: No Definite Risk Source: patient, family Exam Limitations: no limitations (KUSHAL ZHAO STUDENT) History of Present Illness Date Seen by Provider: Dec 13, 2017 Time Seen by Provider: 18:00 Initial Comments Patient to the emergency room with complaints of right ankle pain. Patient reports that she was jumping into [facility] and her right leg turned up underneath of her hitting rocks causing pain to her right ankle. Patient is able to bear weight as she ambulated into ER room 6. Onset: this afternoon Pain/Injury Location: right ankle Modifying Factors: Improves With Cold Therapy, Improves With Immobilization; Worse With Movement (KUSHAL ZHAO STUDENT) Allergies and Home Medications Allergies Coded Allergies: No Known Drug Allergies (Unverified , 12/11/09) Home Medications Cetirizine HCl 10 Mg Tablet, 10 MG PO BID, (Reported) Epinephrine 0.3 Mg/0.3 Ml Auto.injct, 1 SQ PRN, (Reported) Famotidine 20 Mg Tablet, 20 MG PO DAILY, (Reported) Hydroxyzine HCl 25 Mg Tablet, 25 MG PO Q8H PRN for ITCHING AND RASH, (Reported) Montelukast Sodium 10 Mg Tablet, 10 MG PO HS, (Reported) Norethindrone AC-Eth Estradiol 1 Each Tablet, 1 TAB PO DAILY, (Reported) Prednisone 20 Mg Tab, 40 MG PO DAILY Prescribed by: PAU BINGHAM on 05/14/16 1963 Patient Home Medication List Home Medication List Reviewed: Yes (KUSHAL ZHAO STUDENT) Constitutional: see HPI; No chills EENTM: see HPI; No no symptoms reported Respiratory: see HPI; No cough Cardiovascular: see HPI; No chest pain Gastrointestinal: see HPI; No abdominal pain Genitourinary: see HPI; No dysuria Musculoskeletal: see HPI, joint pain Skin: see HPI; No change in color Psychiatric/Neurological: See HPI; Denies Anxiety (KUSHAL ZHAO STUDENT) Past Yvpkpcv-Rmicyk-Plihpm Hx Past Med/Social Hx: Reviewed Nursing Past Med/Soc Hx (KUSHAL ZHAO STUDENT) Patient Social History Alcohol Use: Denies Use Recreational Drug Use: No Smoking Status: Never a Smoker Recent Foreign Travel: No Contact w/Someone Who Travel: No Recent Infectious Disease Expo: No Recent Hopitalizations: No Physical Abuse: No Sexual Abuse: No (KUSHAL ZHAO STUDENT) Immunizations Up To Date Tetanus Booster (TDap): Less than 5yrs PED Vaccines UTD: Yes (KUSHAL ZHAO STUDENT) Seasonal Allergies Seasonal Allergies: Yes (KUSHAL ZHAO STUDENT) Past Medical History Surgeries: Yes (tubes in ears, left knee scope) Adenoidectomy, Tonsillectomy Respiratory: Yes (activity induced) Asthma 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 ) Neurological: No Reproductive Disorders: Yes (states suspected endometriosis) Female Reproductive Disorders: Endometriosis Sexually Transmitted Disease: No HIV/AIDS: No Gastrointestinal: No Musculoskeletal: No Endocrine: No Cancer: No Psychosocial: No Nursing Suicide Risk Score: 0 Integumentary: Yes (HIVES) Recent Skin Changes Blood Disorders: No (KUSHAL ZHAO STUDENT) Family Medical History Reviewed Nursing Family Hx (KUSHAL ZHAO STUDENT) No Pertinent Family Hx (KUSHAL ZHAO STUDENT) Physical Exam Vital Signs Vital Signs - First Documented 12/13/17 17:57 Pulse 70 Resp 14 B/P (MAP) 129/81 (97) Pulse Ox 98 O2 Delivery Room Air (BRENDAN ROSALES) Vital Signs Capillary Refill : Less Than 3 Seconds (KUSHAL ZHAO STUDENT) General Appearance: WD/WN, no apparent distress HEENT: normal ENT inspection, TMs normal, pharynx normal Neck: non-tender, full range of motion Cardiovascular: regular rate, rhythm, no edema, no gallop, no JVD Respiratory: lungs clear, normal breath sounds Gastrointestinal: normal bowel sounds, non tender, soft Back: normal inspection, no CVA tenderness Hips: bilateral hip non-tender, bilateral hip normal inspection, bilateral hip normal range of motion, bilateral hip no evidence of injury Legs: bilateral leg non-tender, bilateral leg normal inspection, bilateral leg normal range of motion, bilateral leg no evidence of injury Knees: bilateral knee non-tender, bilateral knee normal inspection, bilateral knee normal range of motion, bilateral knee no evidence of injury Ankles: left ankle non-tender, left ankle normal inspection, left ankle normal range of motion, left ankle no evidence of injury; right ankle pain, right ankle soft tissue tenderness, right ankle swelling Feet: right foot pain, right foot soft tissue tenderness Neurologic/Psychiatric: alert, normal mood/affect, oriented x 3 Skin: normal color, warm/dry Lymphatic: no adenopathy (KUSHAL ZHAO STUDENT) Progress/Results/Core Measures Results/Orders Vital Signs/I&O 12/13/17 17:57 Pulse 70 Resp 14 B/P (MAP) 129/81 (97) Pulse Ox 98 O2 Delivery Room Air (BRENDAN ROSALES) Blood Pressure Mean: 97 Progress Progress Note : Time: 18:57 Progress Note No evidence of acute fractures noted on the x-ray. Patient reports having her own set of crutches in her vehicle. She is informed to use these along with the Chao bandage and air stirrup that was provided in the emergency room as needed for support. Patient denies any need of pain medication at this time and reports that she has been ibuprofen and acetaminophen at home that she can use. (KUSHAL ZHAO STUDENT) Progress Note : Time: 19:08 Progress Note I saw, took a history with, examined and agree with the x-ray findings and plan as laid out by Kushal, nurse practitioner. There is mild ecchymoses on the dorsum of the foot with good pulses good movement and good motor sensory and tendon function of all 5 digits and the ankle itself. There is no tenderness to the medial or lateral malleoli. Apparently the injury occurred when she was jumping off a rock at the [place] about 3:30 this afternoon. (BRENDAN ROSALES) Diagnostic Imaging Diagonstic Imaging: Xray Plain Films/CT/US/NM/MRI: ankle Comments NAME: BETTY GASTON [facility] REC#: [id number] PT STATUS: REG ER : 1995 PHYSICIAN: EVETTE CARDONA MD ADMIT DATE: 12/13/17/ER Draft Date of Exam:12/13/17 ANKLE, RIGHT, 3 VIEWS INDICATION: Right ankle injury with pain AP, oblique and lateral views of the right ankle are obtained. FINDINGS: No acute fracture or dislocation is identified. No abnormal lytic or sclerotic focus is seen, and there is no radiopaque foreign body. IMPRESSION: No acute abnormality. Dictated on workstation # [id number] Dict: 12/13/17 1840 Trans: 12/13/17 1842 [facility] [id number] Interpreted by: SUJATA OCHOA MD Electronically signed by: Reviewed: Reviewed by Me (KUSHAL ZHAO STUDENT) Departure Impression Primary Impression: Contusion of ankle Qualified Codes: S90.01XA - Contusion of right ankle, initial encounter Additional Impression: Contusion of foot Qualified Codes: S90.31XA - Contusion of right foot, initial encounter Disposition: 01 HOME, SELF-CARE Condition: Stable/Unchanged Departure-Patient Inst. Decision time for Depature: 18:55 (KUSHAL ZHAO) Referrals: KELLIE MCNEILL DO (PCP) Primary Care Physician LUL JULIAN APRN (Family) Primary Care Physician Patient Instructions: Ankle Sprain (DC) Add. Discharge Instructions: Wear the Chao bandage and the Air-Stirrup as needed for support. Follow with her doctor within 1 week for recheck. Return back to the emergency room for increased pain, swelling, discomfort or any other concerns as needed. All discharge instructions reviewed with patient and/or family. Voiced understanding. KUSHAL ZHAO Dec 13, 2017 18:33 BRENDAN ROSALES Dec 13, 2017 19:10
--- NOTE | 2017-12-13 18:43 | Diagnostic Imaging Report ---
INDICATION: Right ankle injury with pain AP, oblique and lateral views of the right ankle are obtained. FINDINGS: No acute fracture or dislocation is identified. No abnormal lytic or sclerotic focus is seen, and there is no radiopaque foreign body. IMPRESSION: No acute abnormality. Dictated by: Dictated on workstation # [id number]
[2017-12-13 19:12] VITALS: BP 122/83
== END 2017-12-13 19:12 | disposition home or self-care (01) ==
LOC: EDUNIT# 17:36 → ER 17:38
DX: S90.01XA Contusion of right ankle, initial encounter (principal); S90.31XA Contusion of right foot, initial encounter; J45.909 Unspecified asthma, uncomplicated; Z90.89 Acquired absence of other organs; Z79.52 Long term (current) use of systemic steroids; W16.122A Fall into natural body of water striking bottom causing other injury, initial encounter; Y92.828 Other wilderness area as the place of occurrence of the external cause
CPT/HCPCS: 73610

== ENCOUNTER → 2018-02-01 | Outpatient (CLI) | payer SELFPAY ==
[~2018-02-01] MED LIST changes: -EPIN0.3A3; -EPIN0.3A3 SQ; +EPIN0.3P18; +EPIN0.3P18 SQ
--- NOTE | 2018-02-01 12:45 | Diagnostic Imaging Report ---
PROCEDURE: US Non-ob pelvis comp/trans. TECHNIQUE: Multiple realtime grayscale images were obtained of the pelvis in various projections endovaginally. Transabdominal imaging was also performed. INDICATION: Dysmenorrhea. FINDINGS: The uterus measures 5.0 x 4.0 x 3.0 cm. The endometrium is 5 mm in thickness. No uterine mass is detected. The right ovary measures 3.1 x 2.6 x 3.0 cm and the left ovary measures 3.0 x 2.0 x 3.5 cm. The right ovary does contain a 2.3 cm cyst. No other adnexal mass or free fluid is seen. There is blood flow to the ovaries. IMPRESSION: 2.3 cm right ovarian cyst. The study is otherwise unremarkable. Dictated by: Dictated on workstation # [id number]
== END ==
LOC: RAD 11:19
PROVIDERS: ATTEND Nurse Practitioner Primary Care
DX: N83.201 Unspecified ovarian cyst, right side (principal)
CPT/HCPCS: 76830; 76856